=== PATIENT | male | born 1980 ===

== ENCOUNTER 2024-07-10 16:52 | Emergency (ER) | payer SELFPAY ==
--- NOTE | ~2024-07-10 | CT_ITS ---
CLINICAL HISTORY: AMS, intoxication, contusion on forehead CT head without contrast Comparison: None Findings: No intra-axial mass, midline shift, hydrocephalus, or acute hemorrhage. No significant atrophy-like change or white matter disease. There is no sinus or mastoid fluid. The orbits are unremarkable. Left frontal scalp soft tissue edema. There is no acute fracture. IMPRESSION: 1. No acute intracranial findings. This document has been electronically signed by: Naif Olson MD on 07/10/2024 20:04:50
--- NOTE | ~2024-07-10 | CT_ITS ---
CLINICAL HISTORY: intoxicated concern for trauma CT cervical spine without contrast Comparison: None Findings: Motion and streak artifact limit evaluation. Straightening of the cervical lordosis. Mild spinal canal narrowing suspected at C4-C5 with severe left and moderate right bilateral foraminal stenoses. Osteopenia. No acute fracture. Soft tissues of the neck are normal. No consolidation or effusion at the lung apices. IMPRESSION: Motion degraded exam. No acute cervical spine fracture. Additional findings described. This document has been electronically signed by: Naif Olson MD on 07/10/2024 20:03:46
[2024-07-10 17:02] VITALS: BP 128/90; PULSE 92; O2SAT 97
[2024-07-10 17:03] VITALS: BP 132/86; PULSE 88; RESP 18; TEMP 36.6; O2SAT 96; BMI 29.9
--- NOTE | 2024-07-10 17:34 | ED_ITS ---
HPI - Alcohol General Chief Complaint: ETOH/Substance Use Stated Complaint: etoh liquor, stumbling and fallen in grocery Time Seen by Provider: 07/10/24 17:03 Source: patient and EMS Mode of arrival: EMS Limitations: other (intoxicated) History of Present Illness ED Provider: KATJA HPI narrative: 44 yo male with reported ETOH use disorder here after being found stumbling in a store - admits to ETOH use and they found him with 1.5L of wine in backpack. He is from [place]. He really cannot provide much history. He denies trauma but has a contusion on the forehead. He has not been to [place] before. I asked him about detox and he did note he was there recently but no other history given. MD complaint: alcohol intoxication Last drink: Unknown Chronic alcohol use: Yes Previous visits for alcohol intoxication: No Recent trauma: No (denies but exam suggests otherwise) Associated symptoms: denies other symptoms Treatments prior to arrival: none Related Data Allergies Allergy/AdvReac Type Severity Reaction Status Date / Time No Known Allergies Allergy Verified 07/10/24 17:05 Review of Systems 2 Review of Systems: ROS unable to be obtained due to altered mental status [facility] Past Medical History Attestation statement: The following information was validated with the patient. Medical History Alcohol abuse Social History Social History Smoked in Last 30 Days: No Use of substances other than those prescribed or required for medical reasons: No Advance Directives: No Advance Directives Information Provided: No Do you have a plan to hurt others: No Plan Physical Exam ED Vital Signs: Vital Signs - 24 hr 07/10/24 17:03 Temperature 97.9 F Pulse Rate 88 Respiratory Rate 18 Blood Pressure 132/86 Pulse Oximetry 96 Oxygen Delivery Method Room Air BMI result Body Mass Index 29.9 Appearance: Alert. intoxicated and confused. No acute distress. Eyes: Pupils equal, round and reactive to light. he has mild horizontal nystagmus ENT: Pharynx normal. contusion on forehead Neck: Normal inspection. Neck supple. CVS: Normal heart rate and rhythm. Pulses normal. Respiratory: No respiratory distress. Breath sounds normal. Abdomen: Soft and nontender. Skin: Skin warm and dry. Normal skin color. Normal skin turgor. Extremities: No lower extremity edema Neuro: confused. No motor deficit. No sensory deficit. CN2-12 intact Course Course Course Narrative: refusing labs and CT scans - aware they are on phone fighting 627pm Reevaluation(s) Reevaluation #1: on her way to see the patient 701pm Medical Decision Making Medical Decision Making MDM Narrative: 44 yo male with PMH of ETOH abuse here with intoxication and concern for possible fall at this time labs and CT head ordered/cspine and labs. Will need to observe until clinically sober. Differential Diagnosis Differential Diagnoses: The differential diagnosis associated with the presentation includes ETOH intoxication Admission/Observation Consideration of admission/observation: Escalation of care including admission/observation considered here to take him to detox Independent Interpretation I performed an independent interpretation of an: CT Scan (atraumatic) Radiology Impression Discussion of test interpretation with radiology: I have reviewed the radiologist's reading. Independent Historian Clinical information obtained from an independent historian. History obtained from or confirmed by: Spouse and EMS Discharge Plan Discharge Clinical Impression: Alcoholic intoxication Qualifiers: Complication of substance-induced condition: with unspecified complication Qualified Code(s): F10.929 - Alcohol use, unspecified with intoxication, unspecified Patient Disposition: Home, Self-Care Instructions: Alcohol Intoxication (ED), Abuse of Alcohol (ED) Additional Instructions: Alcohol use disorder You were seen in the Emergency Department today for treatment of alcohol use disorder.? You may have been given medications to help with your withdrawal symptoms.? Please do not drink alcohol with them. This is very dangerous and can cause respiratory depression or other adverse reactions depending on the medication. If you would like to cut down or stop your alcohol use please consider calling our outpatient Addiction Treatment office:? [facility] ([id number]) [address] [place] [address] ? You have also been given a list of treatment providers in the area that can assist as well.? If you experience seizures, vomiting blood, black stools, falls, severe headache, chest pain, fevers, trouble breathing, hallucinations or any other concerns you need to call 911 or seek immediate care. Please stay hydrated. HE IS MEDICALLY CLEARED FOR DETOX Print Language: Brazilian
--- NOTE | 2024-07-10 18:15 | MHC.EDTECH ---
pt refused labs x3 from two different tech. Aime granger is aware.
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
--- OUTSIDE RECORDS SUMMARY | 2024-07-10 18:53 | XMS_ITS | Encounter Summary ---
Author Organization [facility] Address [address] [place] [address] Care Team Providers Care Special Agent Name Role Phone Desirae Wells MD Primary Care Provider Unav Ashley Diallo NP Primary Care Provider [phone] Rachel Chandra MD Primary Care Provider Encounter Details Date Type Department Care Team (Late st Contact Info) Description 07/16/2008 Orders Only [facility] [address] [place] [id number] Jackie Alicea, [facility] [address] [place] [address] Social History Tobacco Use Types Packs/Day Years Used Date Smoking Tobacco: Never Alcohol Use Standard Drinks/Week Comments Not Asked 0 (1 standard drink = 0.6 oz pur e alcohol) Sex and Gender Information Value Date Recorded Sex Assigned at Male 08/28/2022 9:04 AM EDT Legal Sex Male 6:16 PM EDT Gender Identity Male 08/28/2022 9:04 AM EDT Sexual Orientation Not on file documented as of this encounter Plan of Treatment Not on file documented as of this encounter Procedures Procedure Name Priority Date/Time Associated Diagnosis Comments INFECTIOUS AGENT AG DETECTION BY IMMUNOASSAY W DIRECT OPTICAL OBSERVATION; STREPTOCOCCUS, GROUP A Routine 07/16/2008 4:02 PM EDT Acute Pharyngitis documented in this encounter Results * STREP THROAT (GROUP A) RAPID DETECTION - STATION (07/16/2008 4:02 PM EDT) STREP GROUP A, RAPID (THROAT) neg Specimen from throat (specimen) 07/16/2008 4:02 PM EDT Alyson Madrid [employer] [facility] Final Result * CULTURE, STREP SCREEN (GROUP A), THROAT (07/16/2008) Result(s) SEE TEXT Comment: SOURCE: THROAT NO GROUP A STREPTOCOCCI ISOLATED 07/16/2008 07/16/2008 9:5 4 PM EDT Alyson Madrid [employer] Final Result documented in this encounter Visit Diagnoses Diagnosis Acute pharyngitis- Primary documented in this encounter Additional Health Concerns Infection Onset Date Last Indicated Resolved Time COVID-19 Rule-Out 01/08/2020 01/08/2020 01/10/2020 5:23 PM EST COVID-19 Rule-Out 04/09/2020 04/09/2020 04/11/2020 11:07 AM EST COVID-19 Rule-Out 08/25/2020 08/25/2020 08/26/2020 11:07 AM EDT COVID-19 Rule-Out 10/25/2020 10/25/2020 10/25/2020 7:44 PM EDT COVID-19 Confirmed 10/27/2020 10/27/2020 8:12 PM EST COVID-19 Confirmed 03/03/2021 03/03/2021 8:12 PM EDT documented as of this encounter Care Teams Special Agent Relationship Specialty Start Date End Date Desirae Wells MD PCP - General 05/26/05 03/12/17 Ashley Kim NP PCP - General Internal Medicine 03/13/17 06/17/24 Rachel Chandra MD [address] [place] [address] PCP - General 06/18/24 documented as of this encounter
--- OUTSIDE RECORDS SUMMARY | 2024-07-10 18:53 | XMS_ITS | Encounter Summary ---
Author Organization [facility] Address [address] [place] [address] Care Team Providers Care It Support Specialist Name Role Phone Desirae Wells MD Primary Care Provider Unav Ashley Diallo NP Primary Care Provider [phone] Rachel Chandra MD Primary Care Provider [phone] Encounter Details Date Type Department Care Team (Late st Contact Info) Description 05/05/2012 Orders Only [facility] [address] [place] [id number] Desirae Wells MD Social History Tobacco Use Types Packs/Day Years Used Date Smoking Tobacco: Never Smokeless Tobacco: Never Alcohol Use Standard Drinks/Week Comments Yes 0 (1 standard drink = 0.6 oz pur e alcohol) Sex and Gender Information Value Date Recorded Sex Assigned at Male 08/28/2022 9:04 AM EDT Legal Sex Male 6:16 PM EDT Gender Identity Male 08/28/2022 9:04 AM EDT Sexual Orientation Not on file documented as of this encounter Plan of Treatment Not on file documented as of this encounter Visit Diagnoses Diagnosis Screening for cardiovascular condition Screening for other and unspecified cardiovascular conditions documented in this encounter Additional Health Concerns Infection Onset Date Last Indicated Resolved Time COVID-19 Rule-Out 01/08/2020 01/08/2020 01/10/2020 5:23 PM EST COVID-19 Rule-Out 04/09/2020 04/09/202004/1104/11/2020 11:07 AM EST COVID-19 Rule-Out 08/25/2020 08/25/2020 08/26/2020 11:07 AM EDT COVID-19 Rule-Out 10/25/2020 10/25/2020 10/25/2020 7:44 PM EDT COVID-19 Confirmed 10/27/2020 10/27/2020 8:12 PM EST COVID-19 Confirmed 03/03/2021 03/03/2021 8:12 PM EDT documented as of this encounter Care Teams It Support Specialist Relationship Specialty Start Date End Date Desirae Wells MD PCP - General 05/26/05 03/12/17 Ashley Kim NP PCP - General Internal Medicine 03/13/17 06/17/24 Rachel Chandra MD [address] [place] [id number] PCP - General 06/18/24 documented as of this encounter
--- OUTSIDE RECORDS SUMMARY | 2024-07-10 18:53 | XMS_ITS | Encounter Summary ---
Author Organization [facility] Address [address] [place] [address] Care Team Providers Care Plaster Form Maker Name Role Phone Desirae Wells MD Primary Care Provider Unav Ashley Diallo NP Primary Care Provider [phone] Rachel Chandra MD Primary Care Provider [phone] Encounter Details Date Type Department Care Team (Late st Contact Info) Description 08/10/2008 Orders Only [facility] [address] [place] [phone] Alyson Madrid NP [facility] Primary Care [address] [place] [id number] Social History Tobacco Use Types Packs/Day Years [...] Procedure Name Priority Date/Time Associated Diagnosis Comments MONOSPOT Routine 08/10/2008 Pharyngitis CBC 5 PART DIFF Routine 08/10/2008 Pharyngitis documented in this encounter Results * CBC 5 PART DIFF (08/10/2008) WHITE BLOOD COUNT 5.1 3.8 - 10.8 THOUS/UL RBC 5.31 4.20 - 5.80 MIL/UL Hemoglobin 15.7 13.2 - 17.1 G/DL HCT (HEMATOCRIT) 47.4 38.5 - 50.0 % MCV 89.2 80.0 - 100.0 FL MCH 29.6 27.0 - 33.0 PG MCHC 33.2 32.0 - 36.0 G/DL BAND % 0 0 - 5 % NEUTROPHIL % 60 48 - 75 % LYMPHOCYTE % 33 17 - 40 % MONOCYTE % 5 0 - 14 % EOSINOPHIL % 1 0 - 5 % BASOPHIL % 1 0 - 3 % ATYPICAL LYMPHOCYTE % 0 0 - 5 % PLATELETS 209 140 - 400 THOUS/UL BANDS # 0 0 - 750 CELLS/MCL NEUTROPHILS # 3060 1500 - 7800 CELLS/MCL LYMPHOCYTES # 1683 850 - 3900 CELLS/MCL MONOCYTES # 255 200 - 950 CELLS/MCL EOSINOPHILS # 51 15 - 550 CELLS/MCL BASOPHILS # 51 0 - 200 CELLS/MCL ATYPICAL LYMPHOCYTES # 0 0 - 200 CELLS/MCL RDW 13.9 11.0 - 15.0 % MPV 9.0 7.5 - 11.5 FL 08/10/2008 08/11/2008 1:1 4 AM EDT Alysonniecy Madrid SURFACING TECHNICIAN LAB SAME DAY RESULT F inal Result * MONOSPOT (08/10/2008) Heterophile Ab NEGATIVE SEE BELOW [facility] Comment: REFERENCE: NEGATIVE: HETEROPHILE IF POSITIVE INDICATES CURRENT, PRIMARY INFECTION. 08/10/2008 08/11/2008 1: 14 AM EDT Alysonniecy Madrid SURFACING TECHNICIAN LAB SAME DAY RESULT F inal Result [facility] [address] [place] [address] documented in this encounter Visit Diagnoses Diagnosis Pharyngitis Acute pharyngitis documented in this encounter Additional Health Concerns [...] documented as of this encounter Care Teams Plaster Form Maker Relationship Specialty Start Date End Date Desirae Wells MD PCP - General 05/26/05 03/12/17 Ashley Kim NP PCP - General Internal Medicine 03/13/17 06/17/24 Rachel Chandra MD [address] [place] [id number] PCP - General 06/18/24 documented as of this encounter
--- OUTSIDE RECORDS SUMMARY | 2024-07-10 18:53 | XMS_ITS | Clinical Summary ---
Author Organization [facility] Address [address] [place] [phone] Phone Care Team Providers Care Booth Cashier Name Role Phone Pcp, None MD Primary Care Provider Unavailabl e Allergies Active Allergy Reactions Criticality Noted Date Comments Diphenhydramine Other (See Comments) 07/09/2024 Pt reports sensitivity, pt reports having Hydralazine Other (See Comments) 07/09/2024 Medications No known medications Encounters Date Type Department Care Team Description 07/09/2024 1:30 PM EDT - 07/09/2024 6:15 PM EDT Emergency [facility] [address] [place] [address] Mick Brantley Jr., Daniele Andrew RN Alcohol use disorder, severe, dependence (Primary Dx); Alcohol intoxication Discharge Disposition: Another Health Care Institution Not Defined 07/02/2024 6:49 PM EDT - 07/03/2024 11:42 AM EDT Emergency [facility] [address] [place] [phone] Justo Cranes MD Rice, Phillip L Jr., [facility] Scribe Lessard, Eileen A, CM Clary, Sulma, RN Landry, Cathleen, RN Mullaley, Patricia, RN Rudio, Csianne Sariel, RN Alcohol abuse (Primary Dx); Anxiety Discharge Disposition: Home or Self Care from Last 3 Months Social History Tobacco Use Types Packs/Day Years Used Date Smoking Tobacco: Never Assessed Sex and Gender Information Value Date Recorded Sex Assigned at Not on file Gender Identity Not on file Sexual Orientation Not on file Last Filed Vital Signs Vital Sign Reading Time Taken Comments Blood Pressure 147/99 07/09/2024 1:46 PM EDT Pulse 105 07/03/2024 9:19 AM EDT Temperature 36.1 ??C (97 ??F) 07/02/2024 6:22 PM EDT Respiratory Rate 18 07/09/2024 1:46 PM EDT Oxygen Saturation 96% 07/09/2024 1:46 PM EDT Inhaled Oxygen Concentration - - Weight 90.7 kg (200 lb) 07/09/2024 1:46 PM EDT Height 180.3 cm (5' 11 ) 07/09/2024 1:46 PM EDT Body Mass Index 27.89 07/09/2024 1:46 PM EDT Plan of Treatment Not on file Procedures Procedure Name Priority Date/Time Associated Diagnosis Comments URINE DRUG SCREEN STAT 07/09/2024 2:0 9 PM EDT ETHANOL STAT 07/09/2024 2:09 PM EDT BASIC METABOLIC PANEL STAT 07/09/2024 2:09 PM EDT CBC W/ AUTO DIFF STAT 07/09/2024 2:09 PM EDT ACETAMINOPHEN LEVEL STAT 07/02/2024 6 :40 PM EDT SALICYLATE LEVEL STAT 07/02/2024 6:40 PM EDT ETHANOL STAT 07/02/2024 6:40 PM EDT BASIC METABOLIC PANEL STAT 07/02/2024 6:40 PM EDT CBC W/ AUTO DIFF STAT 07/02/2024 6:40 PM EDT URINALYSIS, MICROSCOPIC ONLY STAT 07/02/2024 6:38 PM EDT URINALYSIS, ROUTINE STAT 07/02/2024 6 :38 PM EDT URINE DRUG SCREEN STAT 07/02/2024 6:3 8 PM EDT from Last 3 Months Results * (ABNORMAL) Urine Drug Screen (07/09/2024 2:09 PM EDT) Only the most recent of2 resultswithin the time period is included. Amphetamine Negative Negative 07/09/2024 2:36 PM EDT [facility] Benzodiazepine Positive(A) Negative 2:36 PM EDT [facility] Opiate Negative Negative 07/09/2024 2:36 PM EDT [facility] Cocaine Negative Negative 07/09/2024 2:36 PM EDT [facility] Barbiturate Negative Negative 07/09/2024 2:36 PM EDT [facility] Cannabinoid Negative Negative 07/09/2024 2:36 PM EDT [facility] METHADONE Negative Negative 07/09/2024 2:36 PM EDT [facility] Fentanyl Screen, Urine Negative Negative 07/09/2024 2:36 PM EDT [facility] Urine Urine specimen obtained by clean catch procedure / Unknown 07/09/2024 2:09 PM EDT 07/09/2024 2:09 PM EDT Narrative [facility] - 07/09/2024 2:36 PM EDT DRUG SCREEN DISCLAIMER Results are only for medical purposes (i.e. treatment). Results must not be used for nonmedical purposes (i.e. employment testing, legal testing). Effective 12/27/2015: Ecstasy detection will no longer be included within this panel. If clinically indicated, please order separately as a sendout test. Mick Brantley Jr., YASMIN URINE ORDERA BLES [facility] [address] [place] [phone] * (ABNORMAL) CBC w/ Differential (07/09/2024 2:09 PM EDT) Only the most recent of2 resultswithin the time period is included. WBC 3.71 3.50 - 10.50 10*3/uL 07/09/2024 2:15 PM EDT [facility] RBC 5.00 4.32 - 5.72 10*6/uL 07/09/2024 2:15 PM EDT [facility] Hemoglobin 15.1 13.5 - 17.5 g/dL 07/09/2024 2:15 PM [facility] Hematocrit 43.8 38.8 - 50.0 % 07/09/2024 2:15 PM [facility] MCV 87.6 81.2 - 95.1 fL 07/09/2024 2:15 PM [facility] MCH 30.2 27.5 - 33.2 pg 07/09/2024 2:15 PM [facility] MCHC 34.5 33.4 - 35.5 g/dL 07/09/2024 2:15 PM [facility] RDW 15.2 11.8 - 15.6 % 07/09/2024 2:15 PM [facility] Platelets 126(L) 150 - 450 10*3/uL 07/09/2024 2:15 PM [facility] MPV 8.9 7.4 - 11.0 fL 07/09/2024 2:15 PM [facility] NRBC 0.0 0.0 - 1.0 /100 WBCs 07/09/2024 2:15 PM [facility] Neutrophils (Relative) 52.6 % 07/09/2024 2:15 PM [facility] Lymphocytes (Relative) 40.4 % 07/09/2024 2:15 PM [facility] Monocytes (Relative) 4.6 % 07/09/2024 2:15 PM [facility] Eosinophils (Relative) 0.8 % 07/09/2024 2:15 PM [facility] Basophils (Relative) 1.3 % 07/09/2024 2:15 PM [facility] Immature Granulocytes (Relative) 0.3 % 07/09/2024 2:15 PM [facility] Neutrophils (Absolute) 2.0 1.7 - 7.0 10*3/uL 07/09/2024 2:15 PM [facility] Lymphocytes (Absolute) 1.5 0.9 - 2.9 10*3/uL 07/09/2024 2:15 PM [facility] Monocytes (Absolute) 0.2(L) 0.3 - 0.9 10*3/uL 07/09/2024 2:15 PM EDT [facility] Eosinophils (Absolute) 0.0 0.0 - 0.5 10*3/uL 07/09/2024 2:15 PM EDT [facility] Basophils (Absolute) 0.1 0.0 - 0.2 10*3/uL 07/09/2024 2:15 PM EDT [facility] Immature Granulocytes (Absolute) 0.0 10*3/uL 07/09/2024 2:15 PM EDT [facility] Blood 07/09/2024 2:09 PM EDT 07/09/2024 2:09 PM EDT Mick Brantley Jr., PRIZE JACKER LAB BLOOD OR DERABLES Performing Organization Address [facility] de Phone Number [facility] [address] [place] [address] * (ABNORMAL) Ethanol (07/09/2024 2:09 PM EDT) Only the most recent of2 resultswithin the time period is included. Ethanol Level 374.2(H) <10.0 mg/dL 07/09/2024 2:50 PM EDT [facility] Blood 07/09/2024 2:09 PM EDT 07/09/2024 2:09 PM EDT Mick Brantley Jr., PRIZE JACKER LAB BLOOD OR DERABLES Performing Organization Address [facility] de Phone Number [facility] [address] [place] [address] * (ABNORMAL) BMP (07/09/2024 2:09 PM EDT) Only the most recent of2 resultswithin the time period is included. Sodium 136 136 - 145 mmol/L 07/09/2024 2:50 PM EDT [facility] Potassium 3.8 3.5 - 5.3 mmol/L 07/09/2024 2:50 PM EDT [facility] Chloride 97(L) 98 - 110 mmol/L 07/09/2024 2:50 PM EDT [facility] CO2 26.0 20.0 - 31.0 mmol/L 07/09/2024 2:50 PM EDT [facility] BUN 8.0 6.0 - 24.0 mg/dL 07/09/2024 2:50 PM EDT [facility] Creatinine 0.89 0.60 - 1.20 mg/dL 07/09/2024 2:50 PM EDT [facility] Calcium 7.9(L) 8.6 - 10.4 mg/dL 07/09/2024 2:50 PM EDT [facility] Glomerular Filtration Rate >90.0 >90.0 mL/min/1.7 3m*2 07/09/2024 2:50 PM EDT [facility] Anion Gap 13.0 6 - 19 mmol/L 07/09/2024 2:50 PM EDT [facility] Glucose 116 70 - 140 mg/dL 07/09/2024 2:50 PM EDT [facility] Blood 07/09/2024 2:0 9 PM EDT 07/09/2024 2:09 PM EDT [facility] - 07/09/2024 2:50 PM EDT Thresholds for diagnosing kidney disease are based on the results of the predicted GFR. The MDRD equation is more accurate as a means to estimate GFR and is a better predictor of Chronic Kidney Disease (CKD) than the traditional creatinine clearance in a 24 hour urine specimen. Classifications of Chronic Kidney Disease GFR Stage Description >=90 1 Kidney damage w/normal or elevated GFR 60-89 2 Kidney damage w/mild or decreased GFR 30-59 3 Moderately decreased GFR 15-29 4 Severely decreased GFR <15 5 Kidney failure Mick Brantley Jr., NP LAB BLOOD OR DERABLES [facility] [address] [place] [phone] * Acetaminophen level (07/02/2024 6:40 PM EDT) Acetaminophen Level <2.0 0.0 - 20.0 ug/ml 07/02/2024 7:23 PM EDT [facility] Blood Venipuncture / Unknown 07/02/2024 6:40 PM EDT 07/02/2024 6:41 PM EDT Narrative [facility] - 07/02/2024 7:23 PM EDT Acetaminophen Comment: Low false positive acetaminophen results may be observed when testing samples from hyperbilirubinemic patients who have no known recent history of acetaminophen exposure. Low acetaminophen concentration positive values may be observed when serum bilirubin concentrations are above 1O mg/dL. Shivam Leiva MD LAB BLOOD ORDERABLES Performing Organization Address [facility] Co de Phone Number [facility] [address] [place] [phone] * Salicylate level (07/02/2024 6:40 PM EDT) Salicylate <3.0 0.0 - 30.0 mg/dL 07/02/2024 7:23 PM EDT [facility] Blood Venipuncture / Unknown 07/02/2024 6:40 PM EDT 07/02/2024 6:41 PM EDT Shivam Leiva MD LAB BLOOD ORDERABLES Performing Organization Address [facility] de Phone Number [facility] [address] [place] [phone] * (ABNORMAL) URINALYSIS, MICROSCOPIC ONLY (07/02/2024 6:38 PM EDT) RBC, UA 0-2 Rare None Seen, 0-2 Rare /HPF 07/02/2024 7:32 PM EDT [facility] WBC, UA 0-5 Rare None Seen, 0-5 Rare /HPF 07/02/2024 7:32 PM EDT [facility] Bacteria, UA 1-9 Few(A) None Seen /HPF 07/02/2024 7:32 PM EDT [facility] Squamous Epithelial Cells, UA 0 to 3 Few None Seen, 0-3 Few /LPF 07/02/2024 7:32 PM EDT [facility] Casts, UA Coarse Granular Casts(A) None Seen /LPF 07/02/2024 7:32 PM EDT [facility] Crystals, UA None Seen None Seen /HPF 07/02/2024 7:32 PM EDT [facility] Urine Urine specimen obtained by clean catch procedure / Unknown Collection / Unknown 07/02/2024 6:38 PM EDT 07/02/2024 6:44 PM EDT Shivam Leiva MD URINE ORDERABLES Performing Organization Address [facility]/ZIP Co de Phone Number [facility] [address] [place] [address] * (ABNORMAL) Urinalysis W/Rflx Micro and Cult, if indicated (07/02/2024 6:38 PM EDT) Color, UA Yellow Colorless, Light Yellow, Yellow, Straw, Pale Yellow 07/02/2024 6:53 PM EDT [facility] Clarity, UA Clear Clear 07/02/2024 6:53 PM EDT [facility] Specific [place], UA 1.010 1.005 - 1.030 07/02/2024 6:53 PM EDT [facility] pH, UA 5.5 5.0 - 8.0 07/02/2024 6:53 PM EDT [facility] Leukocyte esterase, UA Negative Negative 07/02/2024 6:53 PM EDT [facility] Nitrite, UA Negative Negative 07/02/2024 6:53 PM EDT [facility] Protein, UA 2+(A) Negative 07/02/2024 6:53 PM EDT [facility] Glucose, UA Negative Negative 07/02/2024 6:53 PM EDT [facility] Urobilinogen, UA <2.0 <2.0, Normal EU/dL E.U./dL 07/02/2024 6:53 PM EDT [facility] Bilirubin, UA Negative Negative, Trace 07/02/2024 6:53 PM EDT [facility] Blood, UA Trace(A) Negative 07/02/2024 6:53 PM EDT [facility] Ketones, UA Negative Negative 07/02/2024 6:53 PM EDT [facility] Urine Urine specimen obtained by clean catch procedure / Unknown Collection / Unknown 07/02/2024 6:38 PM EDT 07/02/2024 6:44 PM EDT Shivam Leiva MD URINE ORDERABLES Performing Organization Address [facility]/ZIP Co de Phone Number [facility] [address] [place] [address] from Last 3 Months Care Teams Booth Cashier Relationship Specialty Start Date End Date Pcp, None, PCP - General Internal Medicine 07/02/24
--- OUTSIDE RECORDS SUMMARY | 2024-07-10 18:53 | XMS_ITS | Encounter Summary ---
Author Organization [facility] Address [address] [place] [address] Care Team Providers Care Software Quality Assurance Specialist Name Role Phone Ashley Kim NP Primary Care Provider [phone] Rachel Chandra MD Primary Care Provider [phone] Reason for Visit * Reason Comments E-prescribing Refill Request Encounter Details Date Type Department Care Team (Late st Contact Info) Description 03/22/2017 Refill [facility] [address] [place] [id number] Desirae Wells MD E-prescribing Refill Request Social History Tobacco Use Types Packs/Day Years Used Date Smoking Tobacco: Never Smokeless Tobacco: Never Alcohol Use Standard Drinks/Week Comments Yes 0 (1 standard drink = 0.6 oz pure alcohol) more in summer, less during school/work year. during summer--21, 15 during work year. Sex and Gender Information Value Date Recorded Sex Assigned at Male 08/28/2022 9:04 AM EDT Legal Sex Male 6:16 PM EDT Gender Identity Male 08/28/2022 9:04 AM EDT Sexual Orientation Not on file documented as of this encounter Miscellaneous Notes * Telephone Encounter - Ashley Kim NP - 03/22/2017 9:53 PM EST Please find out if he is taking alprazolam or clonazepam. Both will not be prescribed. No refills-1tablet at bedtime, 30 tabs. Need to discuss at his visit. * Telephone Encounter - Jackie Alicea MA - 03/22/2017 3:22 PM EST Any special requests or concerns? Former Dr. Wells pt and routing to new provider Faxed/E-prescribed medication renewal request(s) for Isaiah Torrez 36 y.o. male received from pharmacy. Verified and Confirmed pharmacy for patient. Last CPE with this specialty: 09/26/2015 Last OV with this specialty: 03/13/2017 Next OV: Future Appointments Date Time Provider Department Phone 03/27/17 2:45 PM Lzi Leal MD [facility] Neurology [address] 04/09/17 4:00 PM Ashley Kim NP [facility] Internal Medicine [phone] Pertinent lab results: No labs suggested for any medication orders signed or pended in this encounter. Refresh if any orders changed. Allergies: Review of patient's allergies indicates no known allergies. BP Readings from Last 1 Encounters: 03/13/17 119/76 Patient Active Problem List Diagnosis Date Noted ??? Elevated blood pressure (not hypertension) 09/26/2015 ??? Hyperlipidemia 06/17/2013 ??? Gambling problem 02/20/2013 ??? Gastroesophageal reflux disease 02/19/2013 ??? Vertigo 03/20/2012 ??? Sleep apnea 12/03/2011 ??? BMI 30.0-30.9,adult 05/15/2011 ??? Alcohol abuse, episodic 07/21/2010 ??? Allergic rhinitis 02/28/2010 , ??? Hypertension 07/19/2009 Episodic, on no meds ??? Factor V Leiden, prothrombin gene mutation (HCC) 09/20/2008 1 copy ??? PPD+ 09/20/2008 Took INH for 9 months : mostly compliant ??? Panic disorder ??? Family history of premature coronary heart disease ??? Asthma 05/07/2006 01/15/2003 Francesca WELLS M.D. , ??? Depressive disorder 04/02/2003 04/02/2003 Francesca WELLS M.D. Current Outpatient Prescriptions on File Prior to Visit Medication Sig Dispense Refill ??? Lisinopril 10 MG Tab Take one by mouth daily 90 Tab 3 ??? ALPRAZolam 0.5 MG Tab TAKE 1 TO 2 TABLETS BY MOUTH TWICE A DAY 60 Tab 3 ??? ClonazePAM 0.5 MG Tab 1-2 by mouth at bedtime (do not mix with alprazolam) 60 Tab 5 ??? Meclizine HCl 12.5 MG Tab 1 by mouth three times a day as needed for dizziness 90 Tab 0 ??? RaNITidine HCl 75 MG Tab 1 TABLET 1 TO 2 TIMES A DAY NEEDED ??? ALBUTEROL SULFATE (PROAIR HFA) 108 (90 BASE) MCG/ACT Aero Soln inhale 2 puffs by mouth every 4 hours if needed FOR SHORTNESS OF BREATH/WHEEZE 17 g 5 ??? [place]-3 Fatty Acids (FISH OIL) 1000 MG Cap 2 CAPSULES DAILY WITH A MEAL ??? BQZ-LML-Diqmchpf P19-Vfkhjec E (CO Q-10 VITAMIN E FISH OIL) [id number] Cap 1 CAPSULES DAILY ??? B Complex Vitamins (VITAMIN-B COMPLEX) Tab 1 tablet daily ??? Cholecalciferol (VITAMIN D) 1000 UNITS Tab 1 TABLET DAILY ??? Lactobacillus (ACIDOPHILUS) Tab 2 TABLETS DAILY documented in this encounter Plan of Treatment Not on file documented as of this encounter Goals Goal Patient Goal Type Associated Problems Recent Progress Patient-Stated? Author Blood Pressure < 140/90 Blood Pressure 129/87(2021 10:51 AM EDT) No Anusha Boucher documented as of this encounter Visit Diagnoses Not on filedocumented in this encounter Additional Health Concerns Infection Onset Date Last Indicated Resolved Time COVID-19 Rule-Out 01/08/2020 01/08/2020 01/10/2020 5:23 PM EST COVID-19 Rule-Out 04/09/2020 04/09/2020 04/11/2020 11:07 AM EST COVID-19 Rule-Out 08/25/2020 08/25/2020 08/26/2020 11:07 AM EDT COVID-19 Rule-Out 10/25/2020 10/25/2020 10/25/2020 7:44 PM EDT COVID-19 Confirmed 10/27/2020 10/27/2020 1 8:12 PM EST COVID-19 Confirmed 03/03/2021 03/03/2021 2 8:12 PM EDT documented as of this encounter Care Teams Software Quality Assurance Specialist Relationship Specialty Start Date End Date Ashley Kim NP PCP - General Internal Medicine 03/13/17 06/17/24 Rachel Chandra MD [address] [place] [id number] PCP - General 06/18/24 documented as of this encounter
--- OUTSIDE RECORDS SUMMARY | 2024-07-10 18:53 | XMS_ITS | Clinical Summary ---
Author Organization [facility] Address [address] [place] [address] Care Team Providers Care Rural Carrier Associate Name Role Phone Rachel Chandra MD Primary Care Provider [phone] Allergies No known active allergies Medications * This document contains information received from the source organization and may not represent a complete record from that organization. ALBUTEROL SULFATE (ProAir HFA) 108 (90 Base) MCG/ACT inhaler inhale 2 puffs by mouth every 4 hours if needed FOR SHORTNESS OF BREATH/WHEEZE 17 g 1 0 Active Meclizine HCl (ANTIVERT) 12.5 MG tablet 1 by mouth three times a day as needed for dizziness. 90 tablet 4 Active clonazePAM (KlonoPIN) 0.5 MG tabletIndicatio ns:Anxiety,Jessica c disorder Take one tablet (0.5 mg total) by mouth 2 (two) times a day if needed for anxiety ; avoid any driving, operating machinery, and alcohol when taking this medication. 60 tablet 4 Active Active Problems Problem Noted Date Diagnosed Date Immunocompromised due to alcohol dependence 07/02 Overview (07/13/2021): Patient considered immunosuppressed due to the diagnosis of alcohol dependence. Major depressive disorder, r ecurrent episode, in partial remission 07/22/2019 Overview (07/22/2019): 06/25/19 PCP Chronic Assessment review: Major Depression Status: Stable based on review of symptoms. Continue present treatment plan and recheck at least yearly. Recurrent Mild Sx partially controlled Mood disorder 07/06/2019 Alcohol use disorder, severe, dependence 020 Visual disturbance 04/22/2017 Lightheadedness 03/27/2017 Dizziness 03/27/2017 Hyperlipidemia 06/17/2013 Gambling problem 02/20/2013 Gastroesophageal reflux disease 02/19/2013 Overview (07/05/2020): Vertigo 03/20/2012 Sleep apnea 12/03/2011 BMI 30.0-30.9,adult 05/15/2011 Overview (04/16/2014): Alcohol abuse, episodic 07/21/2010 Allergic rhinitis 02/28/2010 Overview (12/05/2015): , Hypertension 07/19/2009 Overview (07/09/2014): Episodic, on no meds Factor V Leiden, prothrombin gene mutation (HHS) 09/20/2008 Overview (09/20/2008): 1 copy PPD+ 09/20/2008 Overview (09/20/2008): Took INH for 9 months : mostly compliant Asthma 05/07/2006 Overview (02/19/2016): 01/15/2003 Francesca WELLS M.D. , Panic disorder Family history of premature coronary heart disea se Resolved Problems Problem Noted Date Diagnosed Date Resolved Date Dizziness-PT 05/09/2020 08/28/2022 Elevated blood pressure (not hypertension) 09/26/2015 04/29/2017 Overview (02/19/2016): HTN (hypertension) 07/21/2010 2 Overview (07/09/2014): Allergy 01/07/2004 09/26/2015 Overview (03/09/2018): 01/07/2004 Mirtha BECKFORD M.D.,ADAN Current drinker of alcohol 1 04/23/2012 Overview (07/23/2013): . Encounters Date Type Department Care Team Description 04/15/2024 [facility] [address], [place] [id number] [place] [address], Unknown Provider 04/15/2024 Telephone [facility] [address] [place] [address] Ana Sen [place] Care Coordination Communication 04/14/2024 [facility] [address], [place] [id number] [place] [address], Unknown Provider from Last 3 Months Immunizations Name Administration Dates Next Due DTP 09/27/1986 Hep A (adult) 08/10/1999 Hep B (pedi) 08/06/1997,03/10/1997,02/05/1997 Influenza,seasonal,trivalent ,preservative (FLUZONE MDV) 02/16/2005,12/31/2003 MMR 10/11/1992 OPV 09/27/1986 PPV23 (Pneumovax) 02/16/2005 Tdap 12/30/2015 Family History Medical History Relation Name Comments Lipid/Cholesterol Abnormality Father reflux, Heart Disorder Maternal grandfather [place] at 70 Other Maternal grandmother panic a ttacks Thyroid Disorder Mother panic attac ks Psych/Mental Health Paternal aunt panic a ttacks-anxiety Heart Disorder Paternal grandfather [place] at 49 Other Paternal grandmother Gr Gm, ?htn? chol Heart Disorder Paternal uncle 1 [place] at 42 Psych/Mental Health Paternal uncle 2 jessica c attacks-anxiety Relation Name Status Comments Father Alive Maternal grandfather Alive Maternal grandmother Alive Mother Alive Paternal aunt Paternal grandfather Paternal grandmother Paternal uncle 1 Paternal uncle 2 Son Silvio Alive Social History Tobacco Use Types Packs/Day Years Used Date Smoking Tobacco: Never Smokeless Tobacco: Never Tobacco Cessation:Counseling Given: Not Answered Alcohol Use Standard Drinks/Week Comments Yes 0 (1 standard drink = 0.6 oz pur e alcohol) 4 drink per day PHQ-2 Answer Date Recorded PHQ-2 Score 0 10/17/2021 Intimate Partner Violence Answer Date R ecorded Fear of Current or Ex-Partner Not on file Emotionally Abused Not on file 10/21/2022 Physically Abused Not on file 10/21/2022 Sexually Abused Not on file 10/21/2022 Feel Safe at Home Not on file 10/21/2022 Sex and Gender Information Value Date Recorded Sex Assigned at Male 08/28/2022 9:04 AM EDT Legal Sex Male 6:16 PM EDT Gender Identity Male 08/28/2022 9:04 AM EDT Sexual Orientation Not on file 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 file Not on file Not on file Last Filed Vital Signs Vital Sign Reading Time Taken Comments Blood Pressure 129/87 10/17/2021 10:51 AM EDT Pulse 71 10/17/2021 10:51 AM EDT Temperature 36.5 ??C (97.7 ??F) 10/25/2020 6:02 PM ED T Respiratory Rate 18 04/09/2020 11:14 AM EST Oxygen Saturation 98% 10/25/2020 6:02 PM EDT Inhaled Oxygen Concentration - - Weight 88.5 kg (195 lb) 10/17/2021 10:51 AM EDT Height 181 cm (5' 11.26 ) 10/17/2021 10:51 AM ED T Body Mass Index 27 10/17/2021 10:51 AM EDT Plan of Treatment Health Maintenance Due Date Last Done Comments Hep A (2 of 2 - 2-dose series) 02/09/2000 08/10/1999 Pneumococcal (2 of 2 - PCV) 02/16/2006 02/16/2005 COVID-19 Vaccine ( - season) 2023 Influenza (#1) 2023 02/16/2005, 12/31/2003 DTaP/Tdap/Td (3 - Td or Tdap) 12/29/2025 12/30/2015, 09/27/1986 Zoster (Shingrix) (1 of 2) 05/25/2031 Hep B Completed 08/06/1997, 09/1997, 02/05/1997 PSA Discontinued 09/13/2005 Colonoscopy Discontinued 06/23/2013 Tonometry Discontinued 03/22/2017, 03/04, 01/07/2017, Additional history exists Eye/Retina Exam Discontinued 03/23/2017 (Prev iously completed), 03/22/2017, 03/22/2017, Additional history exists Physical Discontinued 04/29/2017, 09/02, 02/19/2013, Additional history exists EKG Discontinued 09/19/2017, 10/02, 10/01/2016, Additional history exists Hepatitis C Screening Completed 05/22/2018 , 03/20/2012, 08/10/2008, Additional history exists LDL Cholesterol Discontinued 05/22/2018, 09/01, 06/30/2016, Additional history exists Chest Imaging Discontinued 01/08/2020, 02/01, 08/16/2007, Additional history exists HPV Vaccine Aged Out No longer eligi ble based on patient's age to complete this topic Hib Aged Out No longer eligi ble based on patient's age to complete this topic Meningococcal ACWY Aged Out No longer eligible based on patient's age to complete this topic Goals Goal Patient Goal Type Associated Problems Recent Progress Patient-Stated? Author Blood Pressure < 140/90 Blood Pressure 129/87(2021 10:51 AM EDT) No Sander, Anusha Procedures Procedure Name Priority Date/Time Associated Diagnosis Comments RAPID COVID-19 FOR SURVEILLANCE - [facility] ONLY Routine 04/14/2024 4:54 PM EST XRAY CHEST, 2 VIEWS, PA & LATERAL (DX: COUGH R05.9/ 786.2) FC STAT (All results called to provider) 01/08/2020 11:03 AM EST Cough HEPATITIS PANEL, ACUTE W/REFLEX Routine 05/22/2018 10:55 AM EDT Alcohol abuse Elevated LFTs LIPID PANEL WITH REFLEX TO DIRECT LDL Routine 05/22/2018 10:55 AM EDT Mixed hyperlipidemia EKG-TO BE READ & BILLED BY ADULT OR PEDIATRIC CARDIOLOGY Routine 09/19/2017 9:25 AM EDT Palpitations COMPREHENSIVE EYE EXAM 03/22/2017 COLONOSCOPY, FLEXIBLE; DIAGNOSTIC +/- COLLECTION OF SPECIMEN(S) BY BRUSHING OR WASHING Routine 06/23/2013 7:27 AM EDT CN (constipation) Dysphagia, unspecified(787.20) PSA (PROSTATE SPECIFIC AG) TOTAL DIAGNOSTIC OR FOLLOW-UP Routine 09/13/2005 Screening Examination For Infectious Disease from Last 3 Months or Most Recently Relevant to Health Maintenance Results * RAPID COVID-19 FOR SURVEILLANCE - [facility] ONLY (04/14/2024 4:54 PM EST) SARS-COV-2 RNA Not Detected Not Detected [facility] Comment: A Not Detected (Negative) test result is indicative of the absence of SARS-CoV-2 RNA at the level of LoD (Limit of Detection). A negative result does not rule out the possibility of COVID-19 and should not be used as the sole basis for treatment or patient management decisions. If COVID-19 is still suspected, based on exposure history together with other clinical findings, re-testing should be considered. 04/14/2024 4:54 PM EST Narrative [facility] - 04/14/2024 6:15 PM EST This test was developed, validated and its performance characteristics determined by [facility]. This test has not been cleared or approved by the U.S. Food and Drug Administration (FDA). FDA Policy for Diagnostic Tests for Coronavirus Disease-2019 during the Public Health Emergency issued May 18, 2019, is followed. us Unknown Provider [facility] LABORATORY Final Resu lt [facility] [employer] [address] [place] [address] * XRAY CHEST, 2 VIEWS, PA & LATERAL (DX: COUGH R05/ 786.2) FC (01/08/2020 11:03 AM EST) Anatomical Region Laterality Modality CHEST Computed Radiogr aphy 01/08/2020 11:2 3 AM EST Narrative 01/08/2020 11:23 AM EST EXAM: ??CHEST, PA AND LATERAL Comparison: CR ??- XRAY CHEST 2 VIEWS PA ?? - 02/14/2018 11:48 AM EST FINDINGS: Frontal and lateral views of the chest show no evidence of air space consolidation. There is no pneumothorax, pleural effusion, or congestive changes. The cardiovascular silhouette is normal. The visualized soft tissue and osseous structures are unremarkable. IMPRESSION: No acute cardiopulmonary abnormality is identified. Procedure Note Amanda Lima MD - 01/08/2020 EXAM: CHEST, PA AND LATERAL Comparison: CR - XRAY CHEST 2 VIEWS PA - 02/14/2018 11:48 AM EST FINDINGS: Frontal and lateral views of the chest show no evidence of air space consolidation. There is no pneumothorax, pleural effusion, or congestive changes. The cardiovascular silhouette is normal. The visualized softtissue and osseous structures are unremarkable. IMPRESSION: No acute cardiopulmonary abnormality is identified. Tanesha Tucker BARBER APPRENTICE IMG XRAY NO CONTRAST ORDERAB LES Final Result * HEPATITIS PANEL, ACUTE W/REFLEX (05/22/2018 10:55 AM EDT) Hepatitis A virus Ab.IgM NON-REACT MATILDE NON-REACT MATILDE [facility] Hepatitis B virus surface Ag NON-REACT MATILDE NON-REACT MATILDE [facility] Hepatitis B virus core Ab.IgM NON-REACT MATILDE NON-REACT MATILDE [facility] Hepatitis C virus Ab NON-REACT MATILDE NON-REACT MATILDE [facility] Hepatitis C virus Ab Signal/Cutoff 0.02 <1.00 [facility] Comment: HCV antibody was non-reactive. There is no laboratory evidence of HCV infection. In most cases, no further action is required. However, if recent HCV exposure is suspected, a test for HCV RNA (test code 32634) is suggested. For additional information please refer to http://education.[employer]/faq/NAH77c0 (This link is being provided for informational/ educational purposes only.) 05/22/2018 10:5 5 AM EDT 05/22/2018 5:08 PM EDT Narrative Resulting Agency Comment [id number] Ashley Kim BARBER APPRENTICE LABORATORY Final Result Performing Organization Address [facility] Co de Phone Number [facility] [address] [place] [address] * (ABNORMAL) LIPID PANEL WITH REFLEX TO DIRECT LDL (05/22/2018 10:55 AM EDT) Cholesterol 162 <200 mg/dL [facility] HDL Cholesterol 45 >40 mg/dL [facility] Triglyceride 59 <150 mg/dL [facility] LDL Cholesterol 103(H) mg/dL (calc) [facility] Comment: Reference range: <100 Desirable range <100 mg/dL for primary prevention; ?? <70 mg/dL for patients with CHD or diabetic patients with > or = 2 CHD risk factors. LDL-C is now calculated using the Sagar calculation, which is a validated novel method providing better accuracy than the Friedewald equation in the estimation of LDL-C. Bryce DONATO et al. JULIENNE. 2013;310(19): 3071-8776 (http://education.[employer]/faq/DVR254) CHOL/HDL Ratio 3.6 <5.0 (calc) [facility] Cholesterol Non-HDL 117 <130 mg/dL (calc) [facility] Comment: For patients with diabetes plus 1 major ASCVD risk factor, treating to a non-HDL-C goal of <100 mg/dL (LDL-C of <70 mg/dL) is considered a therapeutic option. 05/22/2018 10:5 5 AM EDT 05/22/2018 5:08 PM EDT Narrative Resulting Agency Comment [id number] Ashley Kim NP LABORATORY Final Result Performing Organization Address [facility] Co de Phone Number [facility] [address] [place] [address] * EKG-TO BE READ AND BILLED BY CARDIOLOGY (09/19/2017 9:25 AM EDT) VENTRICULAR RATE 54 BPM MUS E EKG SYSTEM ATRIAL RATE 54 BPM MUSE EKG SYSTEM P-R INTERVAL 160 ms MUSE EK G SYSTEM QRS DURATION 82 ms MUSE EK G SYSTEM QT 408 ms MUSE EKG SYSTEM QTC 386 ms MUSE EKG SYSTEM P AXIS -22 degrees MUSE EKG SYSTEM R AXIS 51 degrees MUSE EKG SYSTEM T AXIS 25 degrees MUSE EKG SYSTEM EKG INTERPRETATION Sinus bradycardia Otherwise normal ECG When compared with ECG of 01-OCT-2016 12:49, No significant change was found Confirmed by CHANTEL HARTMAN ([id number]) on 09/19/2017 8:26:14 PM MUSE EKG SYSTEM 09/19/2017 9:25 AM EDT 09/19/2017 8:26 PM EDT us Ashley Kim BARBER APPRENTICE CARDIOVASCULAR-WITH INBSKT RTG Final Result MUSE EKG SYSTEM * COMPREHENSIVE EYE EXAM (03/22/2017) us Ana Hodge MD MINOR PROCEDURE Final Result * PSA, TOTAL (09/13/2005) PSA 0.5 0 - 4.0 NG/ML [facility] (CLIA# [id number]) Comment:PSA PERFORMED BY [facility] ASS[facility]. 09/13/2005 09/13/2005 7:2 7 PM EDT [facility] Shirlene Wells MD LABORATORY Final Resul t Performing Organization Address City/[facility] Co de Phone Number [facility] (CLIA# [id number]) [address] [place] [address] from Last 3 Months or Most Recently Relevant to Health Maintenance Insurance [employer] PPO WORKERS COMPENSATION * Guarantor: [facility] Account Type Relation to Patient Date of Phone Billing Address Occupational Health Susie Employer [address] [place] [id number] Care Teams Rural Carrier Associate Relationship Specialty Start Date End Date Rachel Chandra MD [address] [place] [id number] [facility] - General 06/18/24
--- OUTSIDE RECORDS SUMMARY | 2024-07-10 18:53 | XMS_ITS | Encounter Summary ---
Author Organization [facility] Address [address] [place] [address] Care Team Providers Care Fryer Operator Name Role Phone Desirae Wells MD Primary Care Provider Unav Ashley Diallo NP Primary Care Provider [phone] Rachel Chandra MD Primary Care Provider [phone] Encounter Details Date Type Department Care Team (Late st Contact Info) Description 04/04/2009 Orders Only [facility] [address] [place] [address] Ember Rust MD [address] [place] [address] Social History Tobacco Use Types Packs/Day Years [...] on file documented as of this encounter Progress Notes * Ana Negrete LVN LPN - 04/12/2009 12:50 PM ESTQuick Note: lm * Ember Rust MD - 04/11/2009 7:50 PM ESTQuick Note: Please advise patient of the results of his recent blood tests were all normal except 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 documented in this encounter Plan of Treatment Not on file documented as of this encounter Procedures Procedure Name Priority Date/Time Associated Diagnosis Comments HIV 1 & 2 SCREEN WITH REFLEX Routine 04/04/2009 Screening examination for venereal disease HERPES SIMPLEX VIRUS 1 AND 2 IGG HERPESELECT SPECIFIC ANTIBODY Routine 04/04/2009 Screening examination for venereal disease ALANINE AMINOTRANSFERASE (ALT), SERUM Routine 04/04/2009 Screening examination for venereal disease ASPARTATE AMINOTRANSFERASE (AST), SERUM Routine 04/04/2009 Screening examination for venereal disease documented in this encounter Results * ALANINE AMINOTRANSFERASE (ALT), SERUM (04/04/2009) ALT (SGPT) 23 9 - 60 U/L [facility] 04/04/2009 04/04/2009 9:2 9 PM EST Narrative [facility] - 04/05/2009 11:10 PM EST Report Comments: REMINDER: ??!!!!! DON'T FORGET TO HAVE THE PATIENT SIGN THE HIV CONSENT FORM. PUT A LABEL ON IT AND SEND IT TO [facility] FOR FILING. THIS IS A STATE REQUIREMENT !!!!! Ember Rust MD LAB SAME DAY RESULT Final Result [facility] [address] [place] [address] * ASPARTATE AMINOTRANSFERASE (AST), SERUM (04/04/2009) AST (SGOT) 16 10 - 40 U/L [facility] 04/04/2009 04/04/2009 9:2 9 PM EST Narrative [facility] - 04/05/2009 11:10 PM EST Report Comments: REMINDER: ??!!!!! DON'T FORGET TO HAVE THE PATIENT SIGN THE HIV CONSENT FORM. PUT A LABEL ON IT AND SEND IT TO [facility] FOR FILING. THIS IS A STATE REQUIREMENT !!!!! Ember Rust MD LAB SAME DAY RESULT Final Result Performing Organization Address [facility]/ZIP Co de Phone Number [facility] [address] [place] [address] * (ABNORMAL) HERPES SIMPLEX VIRUS 1 AND 2 IGG HERPESELECT SPECIFIC ANTIBODY (04/04/2009) [facility] HERPES SIMPLEX 1 AB.IGG < 0.9 0.00 - 0.89 INDEX [facility] HERPES SIMPLEX 2 AB.IGG 3.37(H) 0.00 - 0.89 INDEX [facility] Comment: INDEX VALUES FOR HSV-1 AND HSV-2 IGG ANTIBODIES: ?<0.90 ? NEGATIVE ?0.90-1.10 EQUIVOCAL ?>1.10 ? POSITIVE [facility] HERPESELECT ASSAY THIS ASSAY IS TYPE SPECIFIC AND WILL DIFFERENTIATE BETWEEN HSV-1 AND HSV-2 INFECTIONS. A SINGLE POSITIVE RESULT ONLY INDICATES PREVIOUS IMMUNOLOGIC EXPOSURE AND THE LEVEL OF ANTIBODY RESPONSE MAY NOT BE USED TO DETERMINE ACTIVE INFECTION OR DISEASE STAGE. THE TEST SHOULD BE REPEATED IN 4-6 WEEKS WHEN NEGATIVE OR EQUIVOCAL RESULTS ARE OBTAINED IN SUSPECTED EARLY HERPES SIMPLEX DISEASE. THE PERFORMANCE OF THIS ASSAY HAS NOT BEEN ESTABLISHED FOR PEDIATRIC POPULATIONS, FOR SCREENING, OR FOR THE TESTING OF IMMUNOCOMPROMISED PATIENTS. 04/04/2009 04/04/2009 9:2 9 PM EST Narrative [facility] - 04/07/2009 11:57 AM EST Report Comments: REMINDER: ??!!!!! DON'T FORGET TO HAVE THE PATIENT SIGN THE HIV CONSENT FORM. PUT A LABEL ON IT AND SEND IT TO [facility] FOR FILING. THIS IS A STATE REQUIREMENT !!!!! us Ember Rust MD LABORATORY Final Result Performing Organization Address [facility]/ZIP Co de Phone Number [facility] [address] [place] [address] * HIV 1 & 2 SCREEN WITH REFLEX (04/04/2009) [facility] Signature HIV 1/2 EIA ANTIBODY SCREEN SEE TEXT [facility] Comment: ?TESTING METHOD ?RESULT ?------ ?EIA HIV 1/2 ? NON-REACTIVE ?INTERPRETATION ?NO HIV ANTIBODY DETECTED A NON-REACTIVE HIV 1/2 ANTIBODY RESULT DOES NOT EXCLUDE HIV INFECTION SINCE THE TIME FRAME FOR SEROCONVERSION IS VARIABLE. ??IF ACUTE HIV INFECTION IS SUSPECTED, ANTIBODY RETESTING AND NUCLEIC ACID AMPLIFICATION (HIV DNA/RNA) TESTING IS RECOMMENDED. IT IS IMPORTANT TO UNDERSTAND THE LIMITATIONS OF THIS TEST. FOR MORE INFORMATION CONCERNING THESE TEST RESULTS, PLEASE CALL [phone] 04/04/2009 04/04/2009 9:2 9 PM EST Narrative [facility] - 04/05/2009 11:51 AM EST Report Comments: REMINDER: ??!!!!! DON'T FORGET TO HAVE THE PATIENT SIGN THE HIV CONSENT FORM. PUT A LABEL ON IT AND SEND IT TO [facility] FOR FILING. THIS IS A STATE REQUIREMENT !!!!! Ember Rust MD LABORATORY Final Result Performing Organization Address City/State/[place] Co de Phone Number [facility] [address] [place] [address] documented in this encounter Visit Diagnoses Diagnosis Screening examination for venereal disease documented in this encounter Additional Health Concerns [...] documented as of this encounter Care Teams Fryer Operator Relationship Specialty Start Date End Date Desirae Wells MD PCP - General 05/26/05 03/12/17 Ashley Kim NP PCP - General Internal Medicine 03/13/17 06/17/24 Rachel Chandra MD [address] [place] [address] PCP - General 06/18/24 documented as of this encounter
--- OUTSIDE RECORDS SUMMARY | 2024-07-10 18:53 | XMS_ITS | Encounter Summary ---
Author Organization [facility] Address [address] [place] [address] Care Team Providers Care Guard Immigration Name Role Phone Desirae Wells MD Primary Care Provider Unav Ashley Diallo NP Primary Care Provider [phone] Rachel Chandra MD Primary Care Provider [phone] Encounter Details Date Type Department Care Team (Late st Contact Info) Description 05/05/2008 Orders Only [facility] [address] [place] [address] Vimal Yun MD Social History Tobacco Use Types Packs/Day [...] Procedure Name Priority Date/Time Associated Diagnosis Comments CULTURE, STREP SCREEN (GROUP A), THROAT Routine 05/05/2008 Streptococcal Sore Throat documented in this encounter Results * CULTURE, STREP SCREEN (GROUP A), THROAT (05/05/2008) Result(s) SEE TEXT Comment: SOURCE: THROAT NO GROUP A STREPTOCOCCI ISOLATED 05/05/2008 05/06/2008 12: 40 AM EST Vimal Yun MD LABORATORY Final Res ult documented in this encounter Visit Diagnoses Diagnosis Streptococcal sore throat documented in this encounter Additional Health Concerns [...] documented as of this encounter Care Teams Guard Immigration Relationship Specialty Start Date End Date Desirae Wells MD PCP - General 05/26/05 03/12/17 Ashley Kim NP PCP - General Internal Medicine 03/13/17 06/17/24 Rachel Chandra MD [address] [place] [id number] PCP - General 06/18/24 documented as of this encounter
--- OUTSIDE RECORDS SUMMARY | 2024-07-10 18:53 | XMS_ITS ---
Author Name [facility] Organization Unknown Results Test Name/Text Value Interpretation Date Range Source SODIUM MMOL/L IN SER/PLAS 136mmol/L [id number] 136 - 145 [facility] GLUCOSE RANDOM 116mg/dL [id number] 70 - 140 [facility] CALCIUM MG/DL IN SER/PLAS 7.9mg/dL Below low normal [id number] 8.6 - 10.4 [facility] GLOMERULAR FILTRATION RATE 90mL/min/1.73 m*2 90 - [facility] ANION GAP 3 IN SER/PLAS 13mmol/L [id number] 6 - 19 [facility] CREATININE MG/DL IN SER/PLAS 0.89mg/dL 0.6 - 1.2 [facility] CO2 26mmol/L [id number] 20 - 31 [facility] UREA NITROGEN MG/DL IN SER/PLAS 8mg/dL [id number] 6 - 24 [facility] CHLORIDE 97mmol/L Below low normal [id number] 98 - 110 [facility] POTASSIUM MMOL/L IN SER/PLAS 3.8mmol/L [id number] 3.5 - 5.3 [facility] ETOH 374.2mg/dL Above high normal 182257069413 - 10 [facility] COCAINE SCREEN, URINE Negative [id number] - [facility] BARBITURATE SCREEN URINE Negative 728487953418 - [facility] OPIATE SCREEN URINE Negative 009312864556 - [facility] CANNABINOID SCREEN URINE Negative 181695538873 - [facility] AMPHETAMINE SCREEN, URINE Negative 440898393627 - [facility] FENTANYL SCREEN, URINE Negative 393812644773 - [facility] BENZODIAZEPINE SCREEN, URINE Positive Abnormal 803040961655 - [facility] METHADONE URINE Negative 917707131816 - [facility] HEMOGLOBIN IN BLOOD 15.1g/dL 13. 5 - 17.5 [facility] MONOCYTES RELATIVE PERCENT BY AUTOMATED COUNT 4.6% [facility] EOSINOPHILS RELATIVE PERCENT BY AUTOMATED COUNT 0.8% [facility] NUCLEATED RED BLOOD CELLS (NRBC) 0/100WBCs 0 - 1 [facility] LYMPHOCYTES ABSOLUTE BY AUTOMATED COUNT 1.510*3/uL 0.9 - 2.9 [facility] IMM GRANULOCYTES ABS BY AUTO COUNT 010*3/uL [id number] [facility] MEAN CORPUSCULAR VOLUME (MCV) 87.6fL 81.2 - 95.1 [facility] EOSINOPHILS ABSOLUTE BY AUTOMATED COUNT 010*3/uL 0 - 0.5 [facility] RBC IN BLOOD BY AUTOMATED COUNT 510*6/uL 4.32 - 5.72 [facility] MEAN CORPUSCULAR HEMOGLOBIN CONCENTRATION (MCHC) 34.5g/dL 33.4 - 35.5 [facility] IMM GRANULOCYTES REL PCT BY AUTO COUNT 0.3% [facility] MEAN CORPUSCULAR HEMOGLOBIN (MCH) 30.2pg [id number] 27.5 - 33.2 [facility] MEAN PLATELET VOLUME (MPV) 8.9fL [id number] 7.4 - 11 [facility] WBC IN BLOOD BY AUTOMATED COUNT 3.7110*3/uL 3.5 - 10.5 [facility] NEUTROPHILS RELATIVE PERCENT BY AUTOMATED COUNT 52.6% [facility] NEUTROPHILS ABSOLUTE BY AUTOMATED COUNT 210*3/uL 1.7 - 7 [facility] PLATELETS BY AUTOMATED COUNT 32151*3/uL Below low normal 363985064748 150 - 450 [facility] LYMPHOCYTES RELATIVE PERCENT BY AUTOMATED COUNT 40.4% [facility] RED CELL DISTRIBUTION WIDTH (RDW) 15.2% [id number] 11.8 - 15.6 [facility] BASOPHILS RELATIVE PERCENT BY AUTOMATED COUNT 1.3% [facility] MONOCYTES ABSOLUTE BY AUTOMATED COUNT 0.210*3/uL Below low normal [id number] 0.3 - 0.9 [facility] HEMATOCRIT BY AUTOMATED COUNT 43.8% [id number] 38.8 - 50 [facility] BASOPHILS ABSOLUTE BY AUTOMATED COUNT 0.110*3/uL 0 - 0.2 [facility] CALCIUM MG/DL IN SER/PLAS 8.5mg/dL Below low normal 8.6 - 10.4 [facility] ANION GAP 3 IN SER/PLAS 9mmol/L Normal 6 - 19 [facility] POTASSIUM MMOL/L IN SER/PLAS 3.8mmol/L Normal 3.5 - 5.3 [facility] SODIUM MMOL/L IN SER/PLAS 140mmol/L Normal 136 - 145 [facility] GLUCOSE RANDOM 107mg/dL Normal 70 - 140 [facility] CO2 31mmol/L Normal 20 - 31 [facility] UREA NITROGEN MG/DL IN SER/PLAS 6mg/dL Normal 6 - 24 [facility] CHLORIDE 100mmol/L Normal 98 - 110 [facility] GLOMERULAR FILTRATION RATE 90mL/min/1.73 m*2 Normal 90 - [facility] CREATININE MG/DL IN SER/PLAS 0.87mg/dL Normal 0.6 - 1.2 [facility] ETOH 384.7mg/dL Above high normal [id number] - 10 [facility] ACETAMINOPHEN LEVEL 2ug/ml Normal 0 - 20 [facility] SALICYLATE LEVEL 3mg/dL Normal 0 - 30 [facility] MEAN CORPUSCULAR HEMOGLOBIN CONCENTRATION (MCHC) 33.5g/dL Normal 33.4 - 35.5 [facility] WBC IN BLOOD BY AUTOMATED COUNT 3.5610*3/uL Normal 3.5 - 10.5 [facility] MONOCYTES RELATIVE PERCENT BY AUTOMATED COUNT 3.7% Normal [facility] MONOCYTES ABSOLUTE BY AUTOMATED COUNT 0.110*3/uL Below low normal 0.3 - 0.9 [facility] EOSINOPHILS ABSOLUTE BY AUTOMATED COUNT 010*3/uL Normal 0 - 0.5 [facility] RED CELL DISTRIBUTION WIDTH (RDW) 14.6% Normal 11.8 - 15.6 [facility] BASOPHILS RELATIVE PERCENT BY AUTOMATED COUNT 1.1% Normal [facility] MEAN CORPUSCULAR HEMOGLOBIN (MCH) 29.9pg Normal 27.5 - 33.2 [facility] RBC IN BLOOD BY AUTOMATED COUNT 5.4210*6/uL Normal 4.32 - 5.72 [facility] IMM GRANULOCYTES ABS BY AUTO COUNT 010*3/uL Normal [facility] HEMOGLOBIN IN BLOOD 16.2g/dL Normal 13. 5 - 17.5 [facility] IMM GRANULOCYTES REL PCT BY AUTO COUNT 0.3% Normal [facility] K NEUTROPHILS RELATIVE PERCENT BY AUTOMATED COUNT 41.3% Normal [facility] BASOPHILS ABSOLUTE BY AUTOMATED COUNT 010*3/uL Normal 0 - 0.2 [facility] NUCLEATED RED BLOOD CELLS (NRBC) 0/100WBCs Normal 0 - 1 [facility] LYMPHOCYTES RELATIVE PERCENT BY AUTOMATED COUNT 52.5% Normal [facility] HEMATOCRIT BY AUTOMATED COUNT 48.4% Normal 38.8 - 50 [facility] LYMPHOCYTES ABSOLUTE BY AUTOMATED COUNT 1.910*3/uL Normal 0.9 - 2.9 [facility] MEAN CORPUSCULAR VOLUME (MCV) 89.3fL Normal [id number] 81.2 - 95.1 [facility] PLATELETS BY AUTOMATED COUNT 68017*3/uL Below low normal [id number] 150 - 450 [facility]K NEUTROPHILS ABSOLUTE BY AUTOMATED COUNT 1.510*3/uL Below low normal [id number] 1.7 - 7 [facility] EOSINOPHILS RELATIVE PERCENT BY AUTOMATED COUNT 1.1% Normal [facility] MEAN PLATELET VOLUME (MPV) 8.5fL Normal [id number] 7.4 - 11 [facility] SQUAMOUS EPITHELIAL /LPF 0 to 3 Few Normal - [facility] LEUKOCYTES /HPF IN URINE SEDIMENT BY MICROSCOPY 0-5 Rare Normal - [facility] CRYSTALS UA None Seen Normal - [facility] BACTERIA /HPF IN URINE SEDIMENT BY MICROSCOPY 1-9 Few Abnormal - [facility] CASTS, UA Coarse Granular Casts Abnormal [id number] - [facility] ERYTHROCYTES /HPF IN URINE SEDIMENT BY MICROSCOPY 0-2 Rare Normal - [facility] CANNABINOID SCREEN URINE Negative Normal - [facility] BARBITURATE SCREEN URINE Negative Normal - [facility] OPIATE SCREEN URINE Negative Normal - [facility] BENZODIAZEPINE SCREEN, URINE Positive Abnormal - [facility] FENTANYL SCREEN, URINE Negative Normal - [facility] METHADONE URINE Negative Normal - R [facility] AMPHETAMINE SCREEN, URINE Negative Normal - [facility] COCAINE SCREEN, URINE Negative Normal - [facility] LEUKOCYTE ESTERASE IN URINE BY AUTOMATED TEST STRIP Negative Normal - [facility] BILIRUBIN, TOTAL IN URINE BY AUTOMATED TEST STRIP Negative Normal - [facility] BLOOD IN URINE BY AUTOMATED TEST STRIP Trace Abnormal - [facility] GLUCOSE IN URINE BY AUTOMATED TEST STRIP Negative Normal - [facility] UROBILINOGEN IN URINE BY AUTOMATED TEST STRIP E.U./DL <2.0 Normal [id number] - [facility] CLARITY OF URINE Clear Normal - [facility] PH OF URINE BY AUTOMATED TEST STRIP 5.5 Normal [id number] 5 - 8 [facility] COLOR OF URINE Yellow Normal [id number] - [facility] KETONES IN URINE BY AUTOMATED TEST STRIP 50000 Negative Normal [id number] - [facility] SPECIFIC GRAVITY OF URINE BY AUTOMATED TEST STRIP 1.01 Normal [id number] 1.005 - 1.03 [facility] NITRITE IN URINE BY AUTOMATED TEST STRIP Negative Normal [id number] - [facility] PROTEIN IN URINE BY AUTOMATED TEST STRIP 2+ Abnormal [id number] - [facility] Encounters Encounter Type Encounter Reason Primary Diagnosis Location Date Emergency Alcohol Intoxication Alcohol dep endence, uncomplicated [facility] 07/09/2024 Emergency Psychiatric Evaluation Alcohol abuse, uncomplicated [facility] 07/02/2024 Care Team Organization Name Specialty Phone Email Start Date End Da te [facility] 07/03/2024 [facility] NONE PCP Primary Care [facility] 07/03/19 25
--- OUTSIDE RECORDS SUMMARY | 2024-07-10 18:53 | XMS_ITS | Encounter Summary ---
Author Organization [facility] Address [address] [place] [address] Care Team Providers Care Novelty Maker Name Role Phone Desirae Wells MD Primary Care Provider Unav Ashley Diallo NP Primary Care Provider [phone] Rachel Chandra MD Primary Care Provider [phone] Encounter Details Date Type Department Care Team (Late st Contact Info) Description 08/16/2007 Orders Only [facility] [address] [place] [address] Maranda Escobedo, [employer] BI ADMINISTRATOR [address] [place] [address] Social History Tobacco Use Types Packs/Day Years [...] Name Priority Date/Time Associated Diagnosis Comments CULTURE, THROAT Routine 08/16/2007 ASTHMA ACUTE PHARYNGITIS documented in this encounter Results * CULTURE, THROAT (08/16/2007) Result(s) SEE TEXT [facility] (CLIA# [id number]) Comment: SOURCE: THROAT NORMAL OROPHARYNGEAL THUY 08/16/2007 08/17/2007 12: 47 AM EDT Maranda Ana Luisa Escobedo [employer] BI ADMINISTRATOR LABORATORY Final Resu lt [facility] (CLIA# [id number]) [address] [place] [address] documented in this encounter Visit Diagnoses Diagnosis ASTHMA Unspecified asthma ACUTE PHARYNGITIS Acute pharyngitis documented in this encounter Additional [...] documented as of this encounter Care Teams Novelty Maker Relationship Specialty Start Date End Date Desirae Wells MD PCP - General 05/26/05 03/12/17 Ashley Kim NP PCP - General Internal Medicine 03/13/17 06/17/24 Rachel Chandra MD [address] [place] [address] PCP - General 06/18/24 documented as of this encounter
--- OUTSIDE RECORDS SUMMARY | 2024-07-10 18:53 | XMS_ITS | Encounter Summary ---
Author Organization [facility] Address [address] [place] [address] Care Team Providers Care Oil Seal Assembler Name Role Phone Ashley Kim NP Primary Care Provider [phone] Rachel Chandra MD Primary Care Provider Encounter Details Date Type Department Care Team (Late st Contact Info) Description 03/15/2020 Orders Only [facility] [address] [place] [phone] Ashley Kim NP [address] [place] [address] Social History Tobacco Use Types Packs/Day Years [...] as of this encounter Visit Diagnoses Diagnosis Lipids blood increased Other and unspecified hyperlipidemia Screening for diabetes mellitus HTN (hypertension), benign Essential hypertension, benign documented in this encounter Additional Health Concerns Infection Onset Date Last Indicated Resolved Time COVID-19 Rule-Out 04/09/2020 04/09/2020 04/11/2020 11:07 AM EST COVID-19 Rule-Out 08/25/2020 08/25/2020 08/26/2020 11:07 AM EDT COVID-19 Rule-Out 10/25/2020 10/25/2020 10/25/2020 7:44 PM EDT COVID-19 Confirmed 10/27/2020 10/27/2020 8:12 PM EST COVID-19 Confirmed 03/03/2021 03/03/2021 2 8:12 PM EDT documented as of this encounter Care Teams Oil Seal Assembler Relationship Specialty Start Date End Date Ashley Kim NP PCP - General Internal Medicine 03/13/17 06/17/24 Rachel Chandra MD [address] [place] [address] PCP - General 06/18/24 documented as of this encounter
--- OUTSIDE RECORDS SUMMARY | 2024-07-10 18:53 | XMS_ITS | Encounter Summary ---
Author Organization [facility] Address [address] [place] [address] Care Team Providers Care Technical Sales Support Manager Name Role Phone Desirae Wells MD Primary Care Provider Unav Ashley Diallo NP Primary Care Provider [phone] Rachel Chandra MD Primary Care Provider [phone] Encounter Details Date Type Department Care Team (Late st Contact Info) Description 08/10/2008 Orders Only [facility] [address] [place] [phone] Desirae Wells MD Social History Tobacco Use [...] Procedure Name Priority Date/Time Associated Diagnosis Comments LIPID PANEL + CARDIAC RISK WITH REFLEX TO LDL DIRECT Routine 08/10/2008 Screening Cholesterol Level HIV 1 & 2 SCREEN WITH REFLEX Routine 08/10/2008 Screen for STD (Sexually Transmitted Disease) HEPATITIS B SURFACE ANTIBODY, QUANTITATIVE Routine 08/10/2008 Screen for STD (Sexually Transmitted Disease) NEISSERIA GONORRHOEAE (GC), SDA (GENITAL SWAB) Routine 08/10/2008 Screen for STD (Sexually Transmitted Disease) CHLAMYDIA TRACHOMATIS, SDA (GENITAL SWAB) Routine 08/10/2008 Screen for STD (Sexually Transmitted Disease) HEPATITIS C ANTIBODY (EIA-2) Routine 08/10/2008 Screen for STD (Sexually Transmitted Disease) RPR Routine 08/10/2008 Screen for STD (Sexually Transmitted Disease) THYROID CASCADE Routine 08/10/2008 Panic Disorder FACTOR V LEIDEN Routine 08/10/2008 Family History of Thromboembolic Disease HEPATIC FUNCTION PANEL Routine 08/10/2008 Panic Disorder documented in this encounter Results * THYROID CASCADE (08/10/2008) TSH, THYROTROPIN 1.03 0.40 - 4.50 UIU/ML 08/10/2008 08/11/2008 1:1 4 AM EDT us S Shirlene Wells MD LABORATORY Final Resul t * HEPATIC FUNCTION PANEL (08/10/2008) Total Protein 7.3 6.2 - 8.3 G/DL ALBUMIN 4.7 3.7 - 5.1 G/DL GLOBULIN 2.6 2.1 - 3.7 G/DL ALBUMIN/GLOBULIN RATIO 1.8 1.0 - 2.1 BILIRUBIN TOTAL 0.8 0.2 - 1.2 MG/DL BILIRUBIN DIRECT 0.1 0 - 0.3 MG/DL ALKALINE PHOSPHATASE 63 40 - 115 U/L AST (SGOT) 20 10 - 40 U/L ALT (SGPT) 17 9 - 60 U/L 08/10/2008 08/11/2008 1:1 4 AM EDT S Shirlene Wells MD LABORATORY Final Resul t * (ABNORMAL) FACTOR V LEIDEN (08/10/2008) Pathologist [facility] MUTATION SEE NOTE(A) [facility] Comment: RESULT: POSITIVE FOR ONE 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 ??IN ADDITION, OTHER FAMILY MEMBERS MAY ALSO BE CARRIERS OF THE MUTATION AND SIMILARLY AT RISK. ??CONSIDER GENETIC COUNSELING AND DNA TESTING FOR AT-RISK FAMILY MEMBERS. LABORATORY TESTING SUPERVISED AND RESULTS MONITORED BY Salome HOBSON, PH.D., [facility], DIRECTOR, MOLECULAR GENETICS. FACTOR V LEIDEN IS ONE OF THE MOST COMMON CAUSES OF INHERITED THROMBOPHILIA. ??THE R506Q MUTATION LEADS TO RESISTANCE TO DEGRADATION OF THE FACTOR V PROTEIN BY ACTIVATED PROTEIN C (APC). ??INDIVIDUALS WHO HAVE ONE COPY OF THE MUTATION ARE AT A 4-8 FOLD INCREASED RISK OF THROMBOSIS AND INDIVIDUALS WHO HAVE TWO COPIES ARE AT A 50-100 FOLD INCREASED RISK. THE R506Q MUTATION IS DETECTED BY SIGNAL AMPLIFICATION OF THE FACTOR V GENE BY ALLELE- SPECIFIC HYBRIDIZATIONS AND CHEMILUMINESCENT DETECTION OF HYBRIDIZED PROBES. ??SINCE GENETIC VARIATION AND OTHER FACTORS CAN AFFECT THE ACCURACY OF DIRECT MUTATION TESTING, THESE RESULTS SHOULD BE INTERPRETED IN LIGHT OF CLINICAL AND FAMILIAL DATA. THIS TEST WAS DEVELOPED AND ITS PERFORMANCE CHARACTERISTICS HAVE BEEN DETERMINED BY [facility], [place], [place]. IT HAS NOT BEEN CLEARED OR APPROVED BY THE [place]. FOOD AND DRUG ADMINISTRATION. THE FDA HAS DETERMINED THAT SUCH CLEARANCE OR APPROVAL IS NOT NECESSARY. PERFORMANCE CHARACTERISTICS REFER TO THE ANALYTICAL PERFORMANCE OF THE TEST. 08/10/2008 08/11/2008 1:1 4 AM EDT us S Shirlene Wells MD LABORATORY Final Resul t [facility] [address] [place] [address] * LIPID PANEL + CARDIAC RISK WITH REFLEX TO LDL DIRECT (08/10/2008) Pathologist [facility] CHOLESTEROL, TOTAL 142 125 - 200 MG/DL TRIGLYCERIDES 110 30 - 149 MG/DL HDL-CHOLESTEROL 45 40 - 77 MG/DL LDL-CHOLESTEROL 75 62 - 130 MG/DL Comment: RISK CATEGORY: ??LDL-CHOLESTEROL GOAL CHD AND CHD RISK EQUIVALENTS: ??<100 MULTIPLE (2+) FACTORS: ??<130 ZERO TO ONE RISK FACTOR: ??<160 CHD RELATIVE RISK RATIO (TOTAL/HDL) 3.16 0.0 - 5.0 Comment:(0.4 X AVERAGE) 08/10/2008 08/11/2008 1:1 4 AM EDT [facility] Shirlene Wells MD LABORATORY Final Resul t * CHLAMYDIA TRACHOMATIS, SDA (GENITAL SWAB) (08/10/2008) CHLAMYDIA TRACHOMATIS DNA SEE TEXT [facility] Comment: SOURCE: URINE NOT DETECTED CT/NG SDA REFERENCE RANGE: NOT DETECTED 08/10/2008 08/11/2008 1:1 4 AM EDT [facility] Shirlene Wells MD LABORATORY Final Resul t Performing Organization Address City/State/[facility] Co de Phone Number [facility] [address] [place] [address] * NEISSERIA GONORRHOEAE (GC), SDA (GENITAL SWAB) (08/10/2008) NEISSERIA GONORRHOEAE DNA SEE TEXT [facility] Comment: SOURCE: URINE NOT DETECTED 08/10/2008 08/11/2008 1:1 4 AM EDT [facility] Shirlene Wells MD LABORATORY Final Resul t Performing Organization Address City/State/[facility] Co de Phone Number [facility] [address] [place] [address] * HIV 1 & 2 SCREEN WITH REFLEX (08/10/2008) HIV 1/2 EIA ANTIBODY SCREEN SEE TEXT [...] INFORMATION CONCERNING THESE TEST RESULTS, PLEASE CALL [phone] 08/10/2008 08/11/2008 1:1 4 AM EDT S Shirlene Wells MD LABORATORY Final Resul t Performing Organization Address [facility] Phone Number [facility] [address] [place] [address] * RPR (08/10/2008) RPR NON-REACTI VE NON-REACTI VE [facility] 08/10/2008 08/11/2008 1:1 4 AM EDT S Shirlene Wells MD LABORATORY Final Resul t Performing Organization Address [facility] Phone Number [facility] [address] [place] [address] * HEPATITIS B SURFACE ANTIBODY, QUANTITATIVE (08/10/2008) HEPATITIS B SURFACE AB QUANTITATIVE < 5 MIU/ML [facility] Comment: < 10MIU/ML PATIENT DOES NOT HAVE IMMUNITY TO HEPATITIS B VIRUS. > OR EQUAL TO 10 MIU/ML ??PATIENT HAS IMMUNITY TO HEPATITIS B VIRUS. 08/10/2008 08/11/2008 1:1 4 AM EDT S Shirlene Wells MD LABORATORY Final Resul t Performing Organization Address [facility] de Phone Number [facility] [address] [place] [address] * HEPATITIS C ANTIBODY (EIA-2) (08/10/2008) HEPATITIS C AB NON-REACTI VE NON-REACT MATILDE [facility] 08/10/2008 08/11/2008 1:1 4 AM EDT S Shirlene Wells MD LABORATORY Final Resul t [facility] [address] [place] [address] documented in this encounter Visit Diagnoses Diagnosis Screen for STD (sexually transmitted disease) Screening examination for venereal disease Screening cholesterol level Screening for lipoid disorders Family history of thromboembolic disease Family history of other condition Panic disorder Panic disorder without agoraphobia documented in this encounter Additional Health Concerns [...] documented as of this encounter Care Teams Technical Sales Support Manager Relationship Specialty Start Date End Date Desirae Wells MD PCP - General 05/26/05 03/12/17 Ashley Kim NP PCP - General Internal Medicine 03/13/17 06/17/24 Rachel Chandra MD [address] [place] [address] PCP - General 06/18/24 documented as of this encounter
--- OUTSIDE RECORDS SUMMARY | 2024-07-10 18:53 | XMS_ITS | Encounter Summary ---
Author Organization [facility] Address [address] [place] [address] Care Team Providers Care Technical Report Writer Name Role Phone Ashley Kim NP Primary Care Provider [phone] Rachel Chandra MD Primary Care Provider [phone] Reason for Visit * Reason Comments Denial Encounter Details Date Type Department Care Team ([facility] Contact Info) Description 04/01/2017 Telephone [facility] Magnetic Resonance Imaging [address] [place] [address] Liz Leal MD [address] [place] [address] Denial Social History Tobacco Use Types Packs/Day Years Used Date Smoking Tobacco: Never Smokeless Tobacco: Never Alcohol Use Standard Drinks/Week Comments Yes 0 (1 standard drink = 0.6 oz pure alcohol) more in summer, less during school/work year. during summer--, 14 during work year. Sex and Gender Information Value Date Recorded Sex Assigned at Male 08/28/2022 9:04 AM EDT Legal Sex Male 6:16 PM EDT Gender Identity Male 08/28/2022 9:04 AM EDT Sexual Orientation Not on file documented as of this encounter Miscellaneous Notes * Telephone Encounter - Liz Leal MD - 04/01/2017 11:53 AM EST MRI BRAIN only for now. I have canceled MRA * Telephone Encounter - Rashad Bliss - 04/01/2017 11:10 AM EST I have contacted [facility] to obtain a [facility] authorization for the MRI of the Brain and the MRAof the Head you ordered for this patient. The Brain MRI has been approved, but we have been informed that the MRA of the Head has been denied by [facility]'s clinical reviewers and will require a [id number] between the ordering physician and one of [facility]'s physician reviewers before approval can be granted. Please contact [facility] at [phone], select option 3, and reference case # [id number] to speak to a physician reviewer about this request. Please inform me of the outcome of the [id number]. Alternatively, you may elect to cancel the Head MRA and proceed with the MRI of the Brain only for the time being. Please let me know your decision in either case. Thank you. documented in this encounter Plan of Treatment [...] 10/25/2020 7:44 PM EDT COVID-19 Confirmed 10/27/2020 10/27/2020202 1 8:12 PM EST COVID-19 Confirmed 03/03/2021 03/03/2021 2 8:12 PM EDT documented as of this encounter Care Teams Technical Report Writer Relationship Specialty Start Date End Date Ashley Kim NP PCP - General Internal Medicine 03/13/17 06/17/24 Rachel Chandra MD [address] [place] [id number] PCP - General 06/18/24 documented as of this encounter
--- OUTSIDE RECORDS SUMMARY | 2024-07-10 18:53 | XMS_ITS | Encounter Summary ---
Author Organization [facility] Address [address] [place] [address] Care Team Providers Care Medical Management Trainer Name Role Phone Desirae Wells MD Primary Care Provider Unav Ashley Diallo NP Primary Care Provider [phone] Rachel Chandra MD Primary Care Provider [phone] Encounter Details Date Type Department Care Team (Late st Contact Info) Description 07/19/2008 Orders Only [facility] [address] [place] [phone] Desirae Wells MD Social History Tobacco Use [...] on file documented as of this encounter Results * (ABNORMAL) FACTOR V LEIDEN (08/10/2008) MUTATION SEE NOTE(A) [facility] Comment: RESULT: POSITIVE FOR ONE COPY OF [...] AND RESULTS MONITORED BY Salome HOBSON, PH.D., [facility], DIRECTOR, MOLECULAR GENETICS. FACTOR V LEIDEN IS [...] ITS PERFORMANCE CHARACTERISTICS HAVE BEEN DETERMINED [facility] [place] [place]. IT HAS NOT BEEN CLEARED OR [...] HEALTH CARE SERVICES Co de Phone Number [facility] [address] [place] [address] documented in this encounter Visit Diagnoses Diagnosis Family history of thromboembolic disease- Primary Family history of other condition documented in this encounter Additional Health Concerns [...] documented as of this encounter Care Teams Medical Management Trainer Relationship Specialty Start Date End Date Desirae Wells MD PCP - General 05/26/05 03/12/17 Ashley Kim NP PCP - General Internal Medicine 03/13/17 06/17/24 Rachel Chandra MD [address] [place] [address] PCP - General 06/18/24 documented as of this encounter
--- OUTSIDE RECORDS SUMMARY | 2024-07-10 18:53 | XMS_ITS | Encounter Summary ---
Author Organization [facility] Address [address] [place] [address] Care Team Providers Care Instructor Psychiatric Aide Name Role Phone Desirae Wells MD Primary Care Provider Unav Ashley Diallo NP Primary Care Provider [phone] Rachel Chandra MD Primary Care Provider [phone] Encounter Details Date Type Department Care Team (Late st Contact Info) Description 07/16/2008 Orders Only [facility] [address] [place] [address] Alyson Madrid NP [facility] Primary Care [address] [place] [address] [id number] Social History Tobacco Use Types Packs/Day Years [...] CULTURE, STREP SCREEN (GROUP A), THROAT Routine 07/16/2008 Acute Pharyngitis documented in this encounter Results * CULTURE, STREP SCREEN (GROUP A), THROAT (07/16/2008) Result(s) SEE TEXT Comment: SOURCE: THROAT NO GROUP A STREPTOCOCCI ISOLATED 07/16/2008 07/16/2008 9:5 4 PM EDT Alyson Madrid [facility] Final Result documented in this encounter Visit Diagnoses Diagnosis Acute pharyngitis documented in this encounter Additional [...] documented as of this encounter Care Teams Instructor Psychiatric Aide Relationship Specialty Start Date End Date Desirae Wells MD PCP - General 05/26/05 03/12/17 Ashley Kim NP PCP - General Internal Medicine 03/13/17 06/17/24 Rachel Chandra MD [address] [place] [address] PCP - General 06/18/24 documented as of this encounter
--- OUTSIDE RECORDS SUMMARY | 2024-07-10 18:53 | XMS_ITS | Encounter Summary ---
Author Organization [facility] Address [address] [place] [address] Care Team Providers Care Floor Refinisher Name Role Phone Desirae Wells MD Primary Care Provider Unav Ashley Diallo NP Primary Care Provider [phone] Rachel Chandra MD Primary Care Provider [phone] Encounter Details Date Type Department Care Team (Late st Contact Info) Description 03/20/2012 Orders Only [facility] [address] [place] [phone] Desirae Wells MD Social History Tobacco Use [...] Procedure Name Priority Date/Time Associated Diagnosis Comments HEPATITIS C AB WITH REFLEX TO RNA PCR, SERUM Routine 03/20/2012 11:29 AM EST Need for hepatitis C screening test VITAMIN D, 25-HYDROXY, TOTAL, IMMUNOASSAY Routine 03/20/2012 11:29 AM EST Alcohol abuse, episodic HEPATIC FUNCTION PANEL (ALT,AST,ALK PH,BILI'S,TP,ALB) Routine 03/20/2012 11:29 AM EST Alcohol abuse, episodic LIPID PANEL WITH REFLEX TO DIRECT LDL Routine 03/20/2012 11:29 AM EST Routine general medical examination at a health care facility BASIC METABOLIC PANEL WITH (GFR) Routine 03/20/2012 11:29 AM EST Asthma documented in this encounter Results * HEPATIC FUNCTION PANEL (03/20/2012 11:29 AM EST) Protein Total (Serum) 7.6 6.1 - 8.1 g/dL [facility] Comment:{PROTEIN, TOTAL {[id number]) Albumin 5.1 3.6 - 5.1 g/dL [facility] Comment:{ALBUMIN {[id number]) Globulin 2.5 1.9 - 3.7 g/dL (calc) [facility] Comment:{GLOBULIN {[id number]) Albumin/Globulin 2.0 1.0 - 2.5 (calc) [facility] Comment:{ALBUMIN/GLOBULIN RA ORA {[id number]) Bilirubin Total 0.9 0.2 - 1.2 mg/dL [facility] Comment:{BILIRUBIN, TOTAL {[id number]) Bilirubin Direct 0.1 < OR = 0.2 mg/dL [facility] Comment:{BILIRUBIN, DIRECT { [id number]) Bilirubin Indirect 0.8 0.2 - 1.2 mg/dL (calc) [facility] Comment:{BILIRUBIN, INDIRECT {[id number]) Alkaline phosphatase 49 40 - 115 U/L [facility] Comment:{ALKALINE PHOSPHATAS E {[id number]) AST (SGOT) 24 10 - 40 U/L [facility] Comment:{AST {[id number]) ALT (SGPT) 30 9 - 60 U/L [facility] Comment:{ALT {[id number]) 03/20/2012 11:2 9 AM EST 03/20/2012 6:21 PM EST Narrative Resulting Agency Comment [id number] us S Shirlene Wells MD LABORATORY Final Resul t [facility] [address] [place] [address] * BASIC METABOLIC PANEL WITH (GFR) (03/20/2012 11:29 AM EST) Glucose 88 65 - 99 mg/dL [facility] Comment: {GLUCOSE {[id number]) ? Fasting reference interval Urea Nitrogen Blood (BUN) 19 7 - 25 mg/dL [facility] Comment:{UREA NITROGEN (BUN) {[id number]) Creatinine 1.11 0.60 - 1.35 mg/dL [facility] Comment:{CREATININE {[id number]) GFR 89 > OR = 60 mL/min/1. 73m2 [facility] Comment:{eGFR NON-AFR. AMERI CAN {[id number]) GFR () 103 > OR = 60 mL/min/1. 73m2 [facility] Comment:{eGFR AMERIC AN {[id number]) BUN/Creatinine Ratio NOT APPLICABLE 6 - (calc) [facility] Comment:{BUN/CREATININE RATI O {[id number]) Sodium 138 135 - 146 mmol/L [facility] Comment:{SODIUM {[id number]) Potassium 4.6 3.5 - 5.3 mmol/L [facility] Comment:{POTASSIUM {[id number]) Chloride 101 98 - 110 mmol/L [facility] Comment:{CHLORIDE {[id number]) Carbon dioxide 26 19 - 30 mmol/L [facility] Comment:{CARBON DIOXIDE {[id number]) Calcium 9.7 8.6 - 10.3 mg/dL [facility] Comment:{CALCIUM {[id number]) 03/20/2012 11:2 9 AM EST 03/20/2012 6:21 PM EST Narrative [facility] - 03/20/2012 8:51 PM EST Please note that this estimated GFR does not include an adjustment for the patient's height or weight, and can therefore, be viewed as reliable only for patients with heights between 60 and 72 . More precise quantification using a 24-hour urine sample or height-based algorithm is recommended for patients outside of this range of height and for those individuals with more precise needs for GFR calculation. Resulting Agency Comment [id number] S Shirlene Wells MD LABORATORY Final Resul t Performing Organization Address [facility] Co de Phone Number [facility] [address] [place] [address] * (ABNORMAL) LIPID PANEL WITH REFLEX TO DIRECT LDL (03/20/2012 11:29 AM EST) Cholesterol 207(H) 125 - 200 mg/dL [facility] Comment:{CHOLESTEROL, TOTAL {[id number]) HDL Cholesterol 47 > OR = 40 mg/dL [facility] Comment:{HDL CHOLESTEROL {[id number]) Triglyceride 117 <150 mg/dL [facility] Comment:{TRIGLYCERIDES {[id number]) LDL Cholesterol 137(H) <130 mg/dL (calc) [facility] Comment: {LDL-CHOLESTEROL {[id number]) Desirable range <100 mg/dL for patients with CHD or diabetes and <70 mg/dL for diabetic patients with known heart disease. CHOL/HDL Ratio 4.4 < OR = 5.0 (calc) [facility] Comment:{CHOL/HDLC RATIO {[id number]) Cholesterol Non-HDL 160(H) mg/dL (calc) [facility] Comment: {NON HDL CHOLESTEROL {[id number]) Target for non-HDL cholesterol is 30 mg/dL higher than LDL cholesterol target. 03/20/2012 11:2 9 AM EST 03/20/2012 6:21 PM EST Narrative Resulting Agency Comment [id number] S Shirlene Wells MD LABORATORY Final Resul t Performing Organization Address [facility]/ZIP Co de Phone Number [facility] [address] [place] [address] * (ABNORMAL) VITAMIN D, 25-HYDROXY, LC/MS/MS (03/20/2012 11:29 AM EST) Vitamin D, 25-OH, Total 29(L) 30 - 100 ng/mL [facility] Comment:{VITAMIN D, 25 OH, T OTAL {[id number]) Vitamin D, D3 (Cholecalciferol ) 29 ng/mL [facility] Comment:{VITAMIN D, 25 OH, D 3 {[id number]) Vitamin D, 25-OH, D2 (Calciferol) <4 ng/mL [facility] Comment: {VITAMIN D, 25 OH, D2 {[id number]) ? 25-OHD3 indicates both endogenous production and ? supplementation. 25-OHD2 is an indicator of exogenous ? sources such as diet or supplementation. Therapy is based on ? measurement of Total 25-OHD, with levels <20 ng/mL indicative ? of Vitamin D deficiency, while levels between 20 ng/mL and ? 30 ng/mL suggest insufficiency. Optimal levels are ? > or = 30 ng/mL. 03/20/2012 11:2 9 AM EST 03/20/2012 6:21 PM EST Narrative Resulting Agency Comment [id number] us S Shirlene Wells MD LABORATORY Final Resul t Performing Organization Address City/State/[facility] Co de Phone Number [facility] [address] [place] [address] * HEPATITIS C ANTIBODY, SERUM (03/20/2012 11:29 AM EST) Hepatitis C virus Ab NON-REACTI VE NON-REACT MATILDE [facility] Comment:{HEPATITIS C ANTIBOD Y {[id number]) Hepatitis C virus Ab Signal/Cutoff 0.02 <1.00 [facility] Comment:{SIGNAL TO CUT-OFF { [id number]) 03/20/2012 11:2 9 AM EST 03/20/2012 6:21 PM EST Narrative Resulting Agency Comment [id number] us S Shirlene Wells MD LABORATORY Final Resul t [facility] [address] [place] [address] documented in this encounter Visit Diagnoses Diagnosis Need for hepatitis C screening test Special screening examination for other specified viral diseases Alcohol abuse, episodic Nondependent alcohol abuse, episodic drinking behavior Routine general medical examination at a health care facility Asthma Unspecified asthma documented in this encounter Additional Health Concerns [...] documented as of this encounter Care Teams Floor Refinisher Relationship Specialty Start Date End Date Desirae Wells MD PCP - General 05/26/05 03/12/17 Ashley Kim NP PCP - General Internal Medicine 03/13/17 06/17/24 Rachel Chandra MD [address] [place] [address] PCP - General 06/18/24 documented as of this encounter
--- OUTSIDE RECORDS SUMMARY | 2024-07-10 18:53 | XMS_ITS | Encounter Summary ---
Author Organization [facility] Address [address] [place] [address] Care Team Providers Care Bolt Sorter Name Role Phone Desirae Wells MD Primary Care Provider Unav Ashley Diallo NP Primary Care Provider [phone] Rachel Chandra MD Primary Care Provider [phone] Encounter Details Date Type Department Care Team (Late st Contact Info) Description 09/19/2007 Orders Only [facility] [address] [place] [address] [place], [place] [address] [place], [place] [id number] Medications Social History Tobacco Use Types Packs/Day Years [...] documented as of this encounter Care Teams Bolt Sorter Relationship Specialty Start Date End Date Desirae Wells MD PCP - General 05/26/05 03/12/17 Ashley Kim NP PCP - General Internal Medicine 03/13/17 06/17/24 Rachel Chandra MD [address] [place] [address] PCP - General 06/18/24 documented as of this encounter
--- OUTSIDE RECORDS SUMMARY | 2024-07-10 18:53 | XMS_ITS | Encounter Summary ---
Author Organization [facility] Address [address] [place] [address] Care Team Providers Care Powder Blender Name Role Phone Ashley Kim NP Primary Care Provider [phone] Rachel Chandra MD Primary Care Provider [phone] Reason for Visit * Reason Comments E-prescribing Refill Request Encounter Details Date Type Department Care Team (Late st Contact Info) Description 04/22/2017 Refill [facility] [address] [place] [phone] Desirae Wells MD E-prescribing Refill Request Social [...] encounter Miscellaneous Notes * Telephone Encounter - Kenny Rao - 04/22/2017 10:54 AM EST Any special requests or concerns? none Faxed/E-prescribed medication renewal request(s) for Isaiah Torrez 36 y.o. male received from pharmacy. Verified and Confirmed pharmacy for patient. Last CPE with this specialty: 09/26/2015 Last OV with this specialty: 04/09/2017 Next OV: No future appointments. Pertinent lab results: No labs suggested for any medication orders signed or pended in this encounter. Refresh if any orders changed. Allergies: Review of patient's allergies indicates no known allergies. BP Readings from Last 1 Encounters: 04/09/17 130/82 Patient Active Problem List Diagnosis Date Noted ??? Lightheadedness 03/27/2017 ??? Dizziness 03/27/2017 ??? Elevated blood pressure (not hypertension) 09/26/2015 [...] to Visit Medication Sig Dispense Refill ??? ClonazePAM 0.5 MG Tab TAKE 1-2 TABLETS BY MOUTH AT BEDTIME. (DO NOT MIX WITH ALPRAZOLAM) 60 Tab0 ??? Lisinopril 10 MG Tab Take one by mouth daily 90 Tab 3 ??? ALPRAZolam 0.5 MG Tab TAKE 1 TO 2 TABLETS BY MOUTH TWICE A DAY 60 Tab 3 ??? Meclizine HCl 12.5 MG Tab 1 [...] SHORTNESS OF BREATH/WHEEZE 17 g 5 ??? [place]-3 Fatty Acids (FISH OIL) 1000 MG Cap 2 CAPSULES DAILY WITH A MEAL ??? WNW-ERM-Dlqahqzd Q49-Zbbhiew E (CO Q-10 VITAMIN E FISH OIL) 49-89-39-200 Cap 1 CAPSULES DAILY ??? B Complex Vitamins (VITAMIN-B COMPLEX) Tab 1 tablet daily ??? Cholecalciferol (VITAMIN D) 1000 UNITS Tab 1 TABLET DAILY ??? Lactobacillus (ACIDOPHILUS) Tab 2 TABLETS DAILY * Telephone Encounter - Hyacinth Tidwell - 04/22/2017 9:49 AM EST Rerouting to pcp office documented in this encounter Plan of Treatment [...] documented as of this encounter Care Teams Powder Blender Relationship Specialty Start Date End Date Ashley Kim NP PCP - General Internal Medicine 03/13/17 06/17/24 Rachel Chandra MD [address] [place] [address] PCP - General 06/18/24 documented as of this encounter
--- OUTSIDE RECORDS SUMMARY | 2024-07-10 18:53 | XMS_ITS | Encounter Summary ---
Author Organization [facility] Address [address] [place] [address] Care Team Providers Care Fishing Lure Assembler Name Role Phone Desirae Wells MD Primary Care Provider Unav Ashley Diallo NP Primary Care Provider [phone] Rachel Chandra MD Primary Care Provider [phone] Encounter Details Date Type Department Care Team (Late st Contact Info) Description 12/11/2006 Orders Only [facility] [address] [place] [phone] Desirae Wells MD Social History Tobacco Use Types Packs/Day Years Used Date Smoking Tobacco: Never Assessed Sex and Gender Information Value Date Recorded Sex Assigned at Male 08/28/2022 9:04 AM EDT Legal Sex Male 6:16 PM EDT Gender Identity Male 08/28/2022 9:04 AM EDT Sexual Orientation Not on file documented as of this encounter Plan of Treatment Pending Results Name Type Priority Associated Diagnoses Date /Time EKG (ELECTROCARDIOGRAM ) cardiovascular Routine PALPITATIONS 12/11/2006 11:24 AM EDT documented as of this encounter Procedures Procedure Name Priority Date/Time Associated Diagnosis Comments EKG-TO BE READ & BILLED BY ADULT OR PEDIATRIC CARDIOLOGY Routine 12/11/2006 11:24 AM EDT PALPITATIONS BASIC METABOLIC PANEL Routine 12/11/2006 PALPITATIONS THYROID CASCADE Routine 12/11/2006 PALPITATIONS CHOLESTEROL, HDL (DIRECT) Routine 12/11/2006 PALPITATIONS CHOLESTEROL, TOTAL Routine 12/11/2006 PALPITATIONS documented in this encounter Results * BASIC METABOLIC PANEL (12/11/2006) CALCIUM 10.2 8.6 - 10.2 MG/DL [facility] (CLIA# [id number]) BUN 11 7 - 25 MG/DL [facility] (CLIA# [id number]) CREATININE 1.1 0.5 - 1.3 MG/DL [facility] (CLIA# [id number]) BUN/Creatinine Ratio 10 6 - 25 [facility] (CLIA# [id number]) Glucose 86 65 - 99 MG/DL [facility] (CLIA# [id number]) SODIUM 141 135 - 146 MMOL/L [facility] (CLIA# [id number]) POTASSIUM 4.4 3.5 - 5.3 MMOL/L [facility] (CLIA# [id number]) CHLORIDE 101 98 - 110 MMOL/L [facility] (CLIA# [id number]) CARBON DIOXIDE 29 21 - 33 MMOL/L [facility] (CLIA# [id number]) 12/11/2006 12/11/2006 7:5 1 PM EDT us S Shirlene Wells MD LAB SAME DAY RESULT Final R esult [facility] (CLIA# [id number]) [address] [place] [address] * CHOLESTEROL, HDL (DIRECT) (12/11/2006) HDL-CHOLESTEROL 47 40 - 77 MG/DL [facility] (CLIA# [id number]) 12/11/2006 12/11/2006 7:5 1 PM EDT us S Shirlene Wells MD LABORATORY Final Resul t Performing Organization Address City/[facility]/ZIP Co de Phone Number [facility] (CLIA# [id number]) [address] [place] [address] * CHOLESTEROL, TOTAL (12/11/2006) CHOLESTEROL, TOTAL 191 125 - 200 MG/DL [facility] (CLIA# [id number]) 12/11/2006 12/11/2006 7:5 1 PM EDT S Shirlene Wells MD LABORATORY Final Resul t Performing Organization Address [facility] Co de Phone Number [facility] (CLIA# [id number]) [address] [place] [address] * THYROID CASCADE (12/11/2006) TSH, THYROTROPIN 1.03 0.40 - 4.50 UIU/ML [facility] (CLIA# [id number]) 12/11/2006 12/11/2006 7:5 1 PM EDT S Shirlene Wells MD LABORATORY Final Resul t Performing Organization Address [facility] Co de Phone Number [facility] (CLIA# [id number]) [address] [place] [address] documented in this encounter Visit Diagnoses Diagnosis PALPITATIONS Palpitations documented in this encounter Additional Health Concerns [...] documented as of this encounter Care Teams Fishing Lure Assembler Relationship Specialty Start Date End Date Desirae Wells MD PCP - General 05/26/05 03/12/17 Ashley Kim NP PCP - General Internal Medicine 03/13/17 06/17/24 Rachel Chandra MD [address] [place] [address] PCP - General 06/18/24 documented as of this encounter
--- OUTSIDE RECORDS SUMMARY | 2024-07-10 18:53 | XMS_ITS | Encounter Summary ---
Author Organization [facility] Address [address] [place] [address] Care Team Providers Care Bridge Construction Inspector Name Role Phone Desirae Wells MD Primary Care Provider Unav Ashley Diallo NP Primary Care Provider [phone] Rachel Chandra MD Primary Care Provider [phone] Encounter Details Date Type Department Care Team (Late st Contact Info) Description 03/20/2012 Orders Only [facility] [address] [place] [address] Ember Rust MD [address] [place] [address] Social History Tobacco Use Types Packs/Day Years [...] as of this encounter Progress Notes * Ember Rust MD - 03/22/2012 11:05 AM ESTQuick Note: Letter sent documented in this encounter Plan of Treatment Not on file documented as of this encounter Procedures Procedure Name Priority Date/Time Associated Diagnosis Comments NEISSERIA GONORRHOEAE (GC) DNA, SDA (URINE) Routine 03/20/2012 11:31 AM EST Screening examination for venereal disease CHLAMYDIA TRACHOMATIS, DNA, SDA (URINE) Routine 03/20/2012 11:31 AM EST Screening examination for venereal disease documented in this encounter Results * NEISSERIA GONORRHOEAE (GC) DNA, SDA (URINE) (03/20/2012 11:31 AM EST) Neisseria gonorrhoeae DNA NOT DETECTED NOT DETECTED [facility] Comment:{NEISSERIA GONORRHOE AE DNA, SDA {[id number]) 03/20/2012 11:3 1 AM EST 03/20/2012 6:21 PM EST Narrative Resulting Agency Comment [id number] us Ember Rust MD LABORATORY Final Result [facility] [address] [place] [address] * CHLAMYDIA TRACHOMATIS, DNA, SDA (URINE) (03/20/2012 11:31 AM EST) Chlamydia trachomatis DNA NOT DETECTED NOT DETECTED [facility] Comment:{CHLAMYDIA TRACHOMAT IS DNA, SDA {[id number]) 03/20/2012 11:3 1 AM EST 03/20/2012 6:21 PM EST Narrative Resulting Agency Comment CHLAMSDA Ember Rust MD LABORATORY Final Result [facility] [address] [place] [address] documented in this encounter Visit Diagnoses Diagnosis Screening examination for venereal disease documented in this encounter Additional Health Concerns Infection Onset Date Last Indicated Resolved Time COVID-19 Rule-Out 01/08/2020 01/08/2020 01/10/2020 5:23 PM EST COVID-19 Rule-Out 04/09/2020 04/09/202004/11/2020 11:07 AM EST COVID-19 Rule-Out 08/25/2020 08/25/2020 08/26/2020 11:07 AM EDT COVID-19 Rule-Out 10/25/2020 10/25/2020 10/25/2020 7:44 PM EDT COVID-19 Confirmed 10/27/2020 10/27/2020 8:12 PM EST COVID-19 Confirmed 03/03/2021 03/03/2021 8:12 PM EDT documented as of this encounter Care Teams Bridge Construction Inspector Relationship Specialty Start Date End Date Desirae Wells MD PCP - General 05/26/05 03/12/17 Ashley Kim NP PCP - General Internal Medicine 03/13/17 06/17/24 Rachel Chandra MD [address] [place] [address] PCP - General 06/18/24 documented as of this encounter
--- OUTSIDE RECORDS SUMMARY | 2024-07-10 18:53 | XMS_ITS | Encounter Summary ---
Author Organization [facility] Address [address] [place] [address] Care Team Providers Care Band Sawyer Name Role Phone Desirae Wells MD Primary Care Provider Unav Ashley Diallo NP Primary Care Provider [phone] Rachel Chandra MD Primary Care Provider [phone] Encounter Details Date Type Department Care Team (Late st Contact Info) Description 07/05/2009 Orders Only [facility] [address] [place] [phone] Desirae Wells MD Social History Tobacco Use [...] as of this encounter Visit Diagnoses Diagnosis Mole (skin)- Primary Benign neoplasm of skin, site unspecified documented in this encounter Additional Health Concerns [...] documented as of this encounter Care Teams Band Sawyer Relationship Specialty Start Date End Date Desirae Wells MD PCP - General 05/26/05 03/12/17 Ashley iKm NP PCP - General Internal Medicine 03/13/17 06/17/24 Rachel Chandra MD [address] [place] [address] PCP - General 06/18/24 documented as of this encounter
--- OUTSIDE RECORDS SUMMARY | 2024-07-10 18:53 | XMS_ITS | Encounter Summary ---
Author Organization [facility] Address [address] [place] [address] Care Team Providers Care Truck Packer Name Role Phone Desirae Wells MD Primary Care Provider Unav Ashley Diallo NP Primary Care Provider [phone] Rachel Chandra MD Primary Care Provider [phone] Encounter Details Date Type Department Care Team (Late st Contact Info) Description 12/27/2009 Orders Only [facility] [address] [place] [phone] Desirae Wells MD Social History Tobacco Use [...] as of this encounter Visit Diagnoses Diagnosis Allergy- Primary Allergy, unspecified not elsewhere classified documented in this encounter Additional Health Concerns [...] documented as of this encounter Care Teams Truck Packer Relationship Specialty Start Date End Date Desirae Wells MD PCP - General 05/26/05 03/12/17 Ashley Kim NP PCP - General Internal Medicine 03/13/17 06/17/24 Rachel Chandra MD [address] [place] [id number] PCP - General 06/18/24 documented as of this encounter
--- OUTSIDE RECORDS SUMMARY | 2024-07-10 18:53 | XMS_ITS | Clinical Summary ---
Author Organization [facility] Address [address] [place] [address] Care Team Providers Care Postdoctoral Scientist Name Role Phone Sarah Kimberly Gladis Primary Care Provider [phone] Allergies No known active allergies Medications * This document contains information received from the source organization and may not represent a complete record from that organization. escitalopram (LEXAPRO) 10 mg tablet Take 10 mg by mouth daily. Active clonazePAM (KlonoPIN) 0.5 mg tablet Take 0.75 mg by mouth 2 times a day. Active Social History Tobacco Use Types Packs/Day Years Used Date Smoking Tobacco: Never Smokeless Tobacco: Never Alcohol Use Standard Drinks/Week Comments Not Currently 0 (1 standard drink = 0.6 oz pur e alcohol) Sex and Gender Information Value Date Recorded Sex Assigned at Male 04/14/2024 6:20 PM EST Legal Sex Male 2:14 PM EDT Gender Identity Not on file Sexual Orientation Not on file Last Filed Vital Signs Vital Sign Reading Time Taken Comments Blood Pressure 133/90 04/15/2024 11:39 AM EST Pulse 71 04/15/2024 11:39 AM EST Temperature 36.7 ??C (98.1 ??F) 04/15/2024 9:22 AM ES T Respiratory Rate 16 04/15/2024 11:39 AM EST Oxygen Saturation 98% 04/15/2024 11:39 AM EST Inhaled Oxygen Concentration - - Weight 90.7 kg (200 lb) 04/23/2020 11:06 AM EST Height 180.3 cm (5' 11 ) 04/23/2020 11:06 AM EST Body Mass Index 27.89 04/23/2020 11:06 AM EST Plan of Treatment Health Maintenance Due Date Last Done Comments HIV Screening 1981 Varicella Vaccines (1 of 2 - 13+ 2-dose series) 1994 Pneumococcal Vaccine: Pediat shakeel (0-5 Years) and At-Risk Patients (6-50 Years) (2 of 2 - PCV) 02/16/2006 02/16/2005 COVID-19 Vaccine (1 - season) 2023 Alcohol/Substance Use Screening 03/04/2024 Influenza Vaccine (Season Ended) 2024 02/17/20 05, 12/31/2003 DTaP,Tdap,and Td Vaccines (3 - Td or Tdap) 12/29/2025 12/30/2015, 09/27/1986 RSV Vaccine (60+ years old a nd patients) (1 - 1-dose 75+ series) 2056 Hepatitis B Vaccines Completed 08/06/1997, 03/10/1997, 02/05/1997 Procedures * Due to [place] [employer] law, this organization might not be sharing negative HIV tests. Procedure Name Priority Date/Time Associated Diagnosis Comments RAPID COVID-19 RNA FOR SURVEILLANCE (ED ONLY) STAT 04/14/2024 4:54 PM EST from Last 3 Months Results * Due to [facility] law, this organization might not be sharing negative HIV tests. * Rapid COVID-19 RNA for Surveillance (04/14/2024 4:54 PM EST) PCR, SARS CoV-2 RNA Not Detected Not Detected [facility] GEN[facility]ERT 04/14/2024 6:15 PM EST [facility] Comment:A Not Detected (Nega tive) test result is indicative of the absence of SARS-CoV-2 RNA at the level of LoD (Limit of Detection). A negative result does not rule out the possibility of COVID-19 and should not be used as the sole basis for treatment or patient management decisions. If COVID-19 is still suspected, based on exposure history together with other clinical findings, re-testing should be considered. Swab (Nares) Non-Blood Collection / Unknown 04/14/2024 4:54 PM EST 04/14/2024 5:28 PM EST Narrative [facility] - 04/14/2024 6:15 PM EST This test was developed, validated and its performance characteristics determined by [facility] Clinical Labs. This test has not been cleared or approved by the U.S. Food and Drug Administration (FDA). FDA Policy for Diagnostic Tests for Coronavirus Disease-2019 during the Public Health Emergency issued May 18, 2019, is followed. us Kristina Becker MD LAB BODY FLUIDS AND STOOLS ORDER ANABEL Final Result [facility] [address] [id number], from Last 3 Months Insurance [employer] OUT OF STATE PPO Care Teams Postdoctoral Scientist Relationship Specialty Start Date End Date Ashley Kim PCP - General Internal Medicine 04/23/20
--- OUTSIDE RECORDS SUMMARY | 2024-07-10 18:53 | XMS_ITS | Encounter Summary ---
Author Organization [facility] Address [address] [place] [address] Care Team Providers Care Shredded Filler Cutter Operator Name Role Phone Ashley Kim NP Primary Care Provider [phone] Rachel Chandra MD Primary Care Provider [phone] Encounter Details Date Type Department Care Team (Late st Contact Info) Description 03/13/2017 Orders Only [facility] [address] [place] [address] Billie Gonzales NP [address] [place] [address] Social History Tobacco Use Types Packs/Day Years [...] Anusha Boucher documented as of this encounter Procedures Procedure Name Priority Date/Time Associated Diagnosis Comments STREPTOCOCCUS, GROUP A CULTURE Routine 03/13/2017 2:01 PM EST Sore throat documented in this encounter Results * STREPTOCOCCUS, GROUP A CULTURE (03/13/2017 2:01 PM EST) Culture, Streptococci Group A, Throat SEE NOTE [facility] Comment: ??STREPTOCOCCUS, GROUP A CULTURE ??MICRO NUMBER: ?[id number] ??TEST STATUS: ? FINAL ??SPECIMEN SOURCE: ?? NOT GIVEN ??SPECIMEN QUALITY: ??ADEQUATE ??RESULT: ?No group A Streptococcus isolated 03/13/2017 2:01 PM EST 03/13/2017 4:24 PM EST Narrative Resulting Agency Comment [id number] Billie Gonzales NP LABORATORY Final Result Performing Organization Address City/State/[facility] Co de Phone Number [facility] [address] [place] [address] documented in this encounter Visit Diagnoses Diagnosis Sore throat Acute pharyngitis documented in this encounter Additional [...] documented as of this encounter Care Teams Shredded Filler Cutter Operator Relationship Specialty Start Date End Date Ashley Kim NP PCP - General Internal Medicine 03/13/17 06/17/24 Rachel Chandra MD [address] [place] [address] PCP - General 06/18/24 documented as of this encounter
--- OUTSIDE RECORDS SUMMARY | 2024-07-10 18:53 | XMS_ITS | Encounter Summary ---
Author Organization [facility] Address [address] [place] [address] Phone Care Team Providers Care Internet Merchant Name Role Phone Pcp, None MD Primary Care Provider Unavailabl e Reason for Visit * Reason Comments Alcohol Intoxication Encounter Details Date Type Department Care Team ([facility] Contact Info) Description 07/09/2024 1:30 PM EDT - 07/09/2024 6:15 PM EDT Emergency [facility] [address] [place] [address] Mick Brantley Jr., NP Department of Emergency Medicine [address] [place] [address] [phone] (Work) Daniele Sainz RN Alcohol use disorder, severe, dependence (Primary Dx); Alcohol intoxication Discharge Disposition: Another Health Care Institution Not Defined Social History Tobacco Use Types Packs/Day Years Used Date Smoking Tobacco: Never Assessed Sex and Gender Information Value Date Recorded Sex Assigned at Not on file Gender Identity Not on file Sexual Orientation Not on file documented as of this encounter Last Filed Vital Signs Vital Sign Reading Time Taken Comments Blood Pressure 147/99 07/09/2024 1:46 PM EDT Pulse - - Temperature - - Respiratory Rate 18 07/09/2024 1:46 PM EDT Oxygen Saturation 96% 07/09/2024 1:46 PM EDT Inhaled Oxygen Concentration - - Weight 90.7 kg (200 lb) 07/09/2024 1:46 PM EDT Height 180.3 cm (5' 11 ) 07/09/2024 1:46 PM EDT Body Mass Index 27.89 07/09/2024 1:46 PM EDT documented in this encounter Discharge Instructions * Discharge Instructions* Mick Brantley Jr., PETROLEUM PRODUCTION ENGINEER - 07/09/2024 6:03 PM EDT Please be advised your being discharged to the [facility] residential program. Please continue with treatment if any concerns otherwise feel free to return to the emergency department. * Attachments The following attachments cannot be sent through Care Everywhere. * Alcohol Intoxication [id number] (Lao) * Alcohol Misuse and Dependence Information Adult (Lao) documented in this encounter ED Notes * Matthew Perez RN - 07/09/2024 6:13 PM EDT [facility] arrived for patient, pt discharged with staff. AxOx4 paperwork given tostaff pt belongings returned, ambulated out of ED with staff. No issues, steady gait. * Daniele Sainz RN - 07/09/2024 4:18 PM EDT Pt requesting update regarding transfer. Pt updated. documented in this encounter Miscellaneous Notes * ED Triage Note - Daniele Sainz RN - 07/09/2024 1:29 PM EDT Pt arrives to ED via EMS with c/o ETOH eval. Pt has hx of ETOH abuse and according to GF pt didn't go to rehab today so she called the police. EMS reports pt calm and cooperative. Pt last drink around 7am this morning. Pt reports drinking 1 tall bottles worth. documented in this encounter Plan of Treatment Not on file documented as of this encounter Procedures Procedure Name Priority Date/Time Associated Diagnosis Comments URINE DRUG SCREEN STAT 07/09/2024 2:0 9 PM EDT CBC W/ AUTO DIFF STAT 07/09/2024 2:09 PM EDT ETHANOL STAT 07/09/2024 2:09 PM EDT BASIC METABOLIC PANEL STAT 07/09/2024 2:09 PM EDT documented in this encounter Results * (ABNORMAL) Urine Drug Screen (07/09/2024 2:09 PM EDT) Amphetamine Negative Negative 07/09/2024 2:36 PM EDT [...] as a sendout test. Mick Brantley Jr., PETROLEUM PRODUCTION ENGINEER URINE ORDERA [facility]ES [facility] [address] [place] [address] * (ABNORMAL) Ethanol (07/09/2024 2:09 PM EDT) Ethanol Level 374.2(H) <10.0 mg/dL 07/09/2024 2:50 PM EDT CLINICAL LABORATORY Blood 07/09/2024 2:09 PM EDT 07/09/2024 2:09 PM EDT Mick Brantley Jr., NP LAB BLOOD OR DERABLES [facility] [address] [place] [address] * (ABNORMAL) BMP (07/09/2024 2:09 PM EDT) Sodium 136 136 - 145 mmol/L 07/09/2024 [...] PM EDT Narrative CLINICAL LABORATORY - 07/09/2024 2:50 PM EDT [...] NP LAB BLOOD OR DERABLES [facility] [address] [place] [address] * (ABNORMAL) CBC w/ Differential (07/09/2024 2:09 PM EDT) WBC 3.71 3.50 - 10.50 10*3/uL 07/09/2024 2:15 PM EDT CLINICAL LABORATORY RBC 5.00 4.32 - 5.72 10*6/uL 07/09/2024 2:15 PM EDT CLINICAL LABORATORY Hemoglobin 15.1 13.5 - 17.5 g/dL 07/09/2024 2:15 PM EDT CLINICAL LABORATORY Hematocrit 43.8 38.8 - 50.0 % 07/09/2024 2:15 PM EDT CLINICAL LABORATORY MCV 87.6 81.2 - 95.1 fL 07/09/2024 2:15 PM EDT CLINICAL LABORATORY MCH 30.2 27.5 - 33.2 pg 07/09/2024 2:15 PM EDT CLINICAL LABORATORY MCHC 34.5 33.4 - 35.5 g/dL 07/09/2024 2:15 PM EDT CLINICAL LABORATORY RDW 15.2 11.8 - 15.6 % 07/09/2024 2:15 PM EDT CLINICAL LABORATORY Platelets 126(L) 150 - 450 10*3/uL 07/09/2024 2:15 PM EDT CLINICAL LABORATORY MPV 8.9 7.4 - 11.0 fL 07/09/2024 2:15 PM EDT CLINICAL LABORATORY NRBC 0.0 0.0 - 1.0 /100 WBCs 07/09/2024 2:15 PM EDT CLINICAL LABORATORY Neutrophils (Relative) 52.6 % 07/09/2024 2:15 PM EDT CLINICAL LABORATORY Lymphocytes (Relative) 40.4 % 07/09/2024 2:15 PM EDT CLINICAL LABORATORY Monocytes (Relative) 4.6 % 07/09/2024 2:15 PM EDT CLINICAL LABORATORY Eosinophils (Relative) 0.8 % 07/09/2024 2:15 PM EDT CLINICAL LABORATORY Basophils (Relative) 1.3 % 07/09/2024 2:15 PM EDT CLINICAL LABORATORY Immature Granulocytes (Relative) 0.3 % 07/09/2024 2:15 PM EDT CLINICAL LABORATORY Neutrophils (Absolute) 2.0 1.7 - 7.0 10*3/uL 07/09/2024 2:15 PM EDT CLINICAL LABORATORY Lymphocytes (Absolute) 1.5 0.9 - 2.9 10*3/uL 07/09/2024 2:15 PM EDT CLINICAL LABORATORY Monocytes (Absolute) 0.2(L) 0.3 - [...] 07/09/2024 2:09 PM EDT Mick Brantley Jr., YASMIN LAB BLOOD OR DERABLES Performing Organization Address City/State/[facility] Co de Phone Number CLINICAL LABORATORY [address] [place] [address] documented in this encounter Visit Diagnoses Diagnosis Alcohol use disorder, severe, dependence- Primary Alcohol intoxication Nondependent alcohol abuse, unspecified drinking behavior documented in this encounter Care Teams Internet Merchant Relationship Specialty Start Date End Date Pcp, Roe, PCP - General Internal Medicine 07/02/24 documented as of this encounter
--- OUTSIDE RECORDS SUMMARY | 2024-07-10 18:53 | XMS_ITS | Referral Summary ---
Author Organization [facility] Address [address] [place] [address] Care Team Providers Care Handle Machine Operator Name Role Phone Sarah Kimberly Gladis Primary Care Provider [phone] Allergies No known active allergies Medications * [...] 04/23/2020 11:06 AM EST Plan of Treatment Not on file Procedures * Due to [place] [employer] law, this organization might not be sharing negative HIV tests. Procedure Name Priority Date/Time Associated Diagnosis Comments RAPID COVID-19 RNA FOR SURVEILLANCE (ED ONLY) STAT 04/14/2024 4:54 PM EST from Last 3 Months Results * Due to [place] [employer] law, this organization might not be sharing negative HIV tests. * Rapid COVID-19 RNA for Surveillance (04/14/2024 4:54 PM EST) PCR, SARS CoV-2 RNA Not Detected Not Detected [facility] 04/14/2024 6:15 PM EST [facility] Comment:A Not Detected (Nega [...] PM EST 04/14/2024 5:28 PM EST Narrative [facility] - 04/14/2024 6:15 PM EST This test was developed, validated and its performance characteristics determined by [facility] Clinical Labs. This test has not been cleared or approved by the U.S. Food and Drug Administration (FDA). FDA Policy for Diagnostic Tests for Coronavirus Disease-2019 during the Public Health Emergency issued May 18, 2019, is followed. us Kristina Becker MD LAB BODY FLUIDS AND STOOLS ORDER ANABEL Final Result [facility] [address] [place] [address], [place] from Last 3 Months Insurance [facility] OUT OF STATE PPO Care Teams Handle Machine Operator Relationship Specialty Start Date End Date Ashley Kim PCP - General Internal Medicine 04/23/20
--- OUTSIDE RECORDS SUMMARY | 2024-07-10 18:53 | XMS_ITS | Encounter Summary ---
Author Organization [facility] Address [address] [place] [address] Care Team Providers Care Furnace Installer Helper Name Role Phone Desirae Wells MD Primary Care Provider Unav Ashley Diallo NP Primary Care Provider [phone] Rachel Chandra MD Primary Care Provider [phone] Encounter Details Date Type Department Care Team (Late st Contact Info) Description 07/08/2012 Orders Only [facility] [address] [place] [address] Maranda Escobedo, MANUFACTURING PROCESS ENGINEER [address] [place] [address] Social History Tobacco Use Types Packs/Day Years [...] as of this encounter Progress Notes * Evelyn Willis I, RN - 07/09/2012 4:22 PM EDTQuick Note: Pt returning all to auc. Informed of all labs normal . Pt to f/u w pcp for further discussion. In agreement * Evelyn Willis RN - 07/09/2012 3:17 PM EDTQuick Note: Call to pt at number listed. N/a--left message to return call to auc * Maranda Escobedo MANUFACTURING PROCESS ENGINEER - 07/09/2012 1:37 PM EDTQuick Note: nurse: Please notify pt. All labs were normal. He should follow up with Dr. Wells as discussed. * Maranda Escobedo MANUFACTURING PROCESS ENGINEER - 07/08/2012 5:47 PM EDTQuick Note: Cbc, bmp, trop i noted. documented in this encounter Plan of Treatment Not on file documented as of this encounter Procedures Procedure Name Priority Date/Time Associated Diagnosis Comments CBC INCLUDES DIFFERENTIAL AND PLATELET COUNT STAT (All results called to provider) 07/08/2012 3:59 PM EDT Chest discomfort TROPONIN I (STAT RESULTS NEEDED) STAT (All results called to provider) 07/08/2012 3:59 PM EDT Chest discomfort TSH, 3RD GENERATION Routine 07/08/2012 3 :59 PM EDT Chest discomfort BASIC METABOLIC PANEL WITH (GFR) STAT (All results called to provider) 07/08/2012 3:59 PM EDT Chest discomfort documented in this encounter Results * TROPONIN I (STAT RESULTS NEEDED) (07/08/2012 3:59 PM EDT) Troponin I SEE NOTE < OR = 0.05 ng/mL [facility] Comment: {TROPONIN I {[id number]) TROP RESULT = < 0.04 In accord with published recommendations, serial testing of troponin I at intervals of 2 to 4 hours for up to 12 to 24 hours is suggested in order to corroborate a single troponin I result. An elevated troponin alone is not sufficient to make the diagnosis of ID. 07/08/2012 3:59 PM EDT 07/08/2012 4:10 PM EDT Narrative Resulting Agency Comment [id number] [facility] LAB SAME DAY RESULT Final Result Performing Organization Address [facility] de Phone Number [facility] [address] [place] [address] * TSH, 3RD GENERATION (07/08/2012 3:59 PM EDT) TSH 1.40 0.40 - 4.50 mIU/L [facility] Comment:{TSH {[id number]) 07/08/2012 3:59 PM EDT 07/08/2012 4:10 PM EDT Narrative Resulting Agency Comment [id number] [facility] LABORATORY Final Resu lt Performing Organization Address [facility] de Phone Number [facility] [address] [place] [address] * BASIC METABOLIC PANEL WITH (GFR) (07/08/2012 3:59 PM EDT) Glucose 90 65 - 99 mg/dL [facility] Comment: {GLUCOSE {[id number]) ? Fasting reference interval Urea Nitrogen Blood (BUN) 21 7 - 25 mg/dL [facility] Comment:{UREA NITROGEN (BUN) {[id number]) Creatinine 1.07 0.60 - 1.35 mg/dL [facility] Comment:{CREATININE {[id number]) GFR 92 > OR = 60 mL/min/1. 73m2 [facility] Comment:{eGFR NON-AFR. AMERI CAN {[id number]) GFR () 107 > OR = 60 mL/min/1. 73m2 [facility] Comment:{eGFR AMERIC AN {[id number]) BUN/Creatinine Ratio NOT APPLICABLE 6 - 22 (calc) [facility] Comment:{BUN/CREATININE RATI O {[id number]) Sodium 138 135 - 146 mmol/L [facility] Comment:{SODIUM {[id number]) Potassium 4.1 3.5 - 5.3 mmol/L [facility] Comment:{POTASSIUM {[id number]) Chloride 101 98 - 110 mmol/L [facility] Comment:{CHLORIDE {[id number]) Carbon dioxide 30 19 - 30 mmol/L [facility] Comment:{CARBON DIOXIDE {[id number]) Calcium 10.3 8.6 - 10.3 mg/dL [facility] Comment:{CALCIUM {[id number]) 07/08/2012 3:59 PM EDT 07/08/2012 4:10 PM EDT Narrative [facility] - 07/08/2012 5:05 PM EDT Please note that this estimated GFR does [...] needs for GFR calculation. Resulting Agency Comment [id number] Maranda Ana Luisa Escobedo NP LABORATORY Final Resu lt [facility] [address] [place] [address] * CBC INCLUDES DIFFERENTIAL AND PLATELET COUNT (07/08/2012 3:59 PM EDT) WBC 4.0 3.8 - 10.8 Thousand/u L [facility] Comment:{WHITE BLOOD CELL CO UNT {[id number]) RBC 5.32 4.20 - 5.80 Million/uL [facility] Comment:{RED BLOOD CELL COUN T {[id number]) Hemoglobin 15.5 13.2 - 17.1 g/dL [facility] Comment:{HEMOGLOBIN {[id number]) Hematocrit 46.5 38.5 - 50.0 % [facility] Comment:{HEMATOCRIT {[id number]) MCV 87.3 80.0 - 100.0 fL [facility] Comment:{MCV {[id number]) MCH 29.2 27.0 - 33.0 pg [facility] Comment:{MCH {[id number]) MCHC 33.4 32.0 - 36.0 g/dL [facility] Comment:{MCHC {[id number]) RDW 13.7 11.0 - 15.0 % [facility] Comment:{RDW {[id number]) PLT 176 140 - 400 Thousand/u L [facility] Comment:{PLATELET COUNT {[id number]) MPV 8.5 7.5 - 11.5 fL [facility] Comment:{MPV {[id number]) Neutrophils # 2008 1500 - 7800 cells/uL [facility] Comment:{ABSOLUTE NEUTROPHIL S {[id number]) Lymphocytes # 1624 850 - 3900 cells/uL [facility] Comment:{ABSOLUTE LYMPHOCYTE S {[id number]) Monocytes # 224 200 - 950 cells/uL [facility] Comment:{ABSOLUTE MONOCYTES {[id number]) Eosinophils # 104 15 - 500 cells/uL [facility] Comment:{ABSOLUTE EOSINOPHIL S {[id number]) Basophils # 40 0 - 200 cells/uL [facility] Comment:{ABSOLUTE BASOPHILS {[id number]) Neutrophils % 50.2 % [facility] Comment:{NEUTROPHILS {[id number]) Lymphocytes % 40.6 % [facility] Comment:{LYMPHOCYTES {[id number]) Monocytes % 5.6 % [facility] Comment:{MONOCYTES {[id number]) Eosinophils % 2.6 % [facility] Comment:{EOSINOPHILS {[id number]) Basophils % 1.0 % [facility] Comment:{BASOPHILS {[id number]) 07/08/2012 3:59 PM EDT 07/08/2012 4:10 PM EDT Narrative Resulting Agency Comment [id number] [facility] MANUFACTURING PROCESS ENGINEER LAB SAME DAY RESULT Final Result [facility] [address] [place] [address] documented in this encounter Visit Diagnoses Diagnosis Chest discomfort Other chest pain documented in this encounter Additional Health Concerns [...] documented as of this encounter Care Teams Furnace Installer Helper Relationship Specialty Start Date End Date Desirae Wells MD PCP - General 05/26/05 03/12/17 Ashley Kim NP PCP - General Internal Medicine 03/13/17 06/17/24 Rachel Chandra MD [address] [place] [address] PCP - General 06/18/24 documented as of this encounter
--- OUTSIDE RECORDS SUMMARY | 2024-07-10 18:53 | XMS_ITS | Encounter Summary ---
Author Organization [facility] Address [address] [place] [address] Care Team Providers Care Technical Sme Name Role Phone Desirae Wells MD Primary Care Provider Unav Ashley Diallo NP Primary Care Provider [phone] Rachel Chandra MD Primary Care Provider [phone] Encounter Details Date Type Department Care Team (Late st Contact Info) Description 10/25/2012 Orders Only [facility] [address] [place] [address] Maranda Escobedo, SPEEDOMETER MECHANIC [address] [facility] [address] [place] [address] Social History Tobacco Use Types Packs/Day Years [...] Diagnosis Comments STREPTOCOCCUS, GROUP A CULTURE Routine 10/25/2012 9:29 AM EDT Sore throat documented in this encounter Results * STREPTOCOCCUS, GROUP A CULTURE (10/25/2012 9:29 AM EDT) Culture, Streptococci Group A, Throat SEE NOTE [facility] Comment: {STREPTOCOCCUS, GROUP A CULTURE {[id number]) ??STREPTOCOCCUS, GROUP A CULTURE ??MICRO NUMBER: ?[id number] ??TEST STATUS: ? FINAL ??SPECIMEN SOURCE: ?? THROAT ??SPECIMEN QUALITY: ??ADEQUATE ??RESULT: ?No beta hemolytic Streptococci isolated 10/25/2012 9:29 AM EDT 10/26/2012 4:53 AM EDT Narrative Resulting Agency Comment [id number] Vikas Orosco MD LABORATORY Final Result Performing Organization Address City/State/[facility] de Phone Number [facility] [address] [place] [address] documented in this encounter Visit Diagnoses Diagnosis [...] as of this encounter Care Teams Technical Sme Relationship Specialty Start Date End Date Desirae Wells MD PCP - General 05/26/05 03/12/17 Ashley Kim NP PCP - General Internal Medicine 03/13/17 06/17/24 Rachel Chandra MD [address] [place] [address] PCP - General 06/18/24 documented as of this encounter
--- OUTSIDE RECORDS SUMMARY | 2024-07-10 18:54 | XMS_ITS | Encounter Summary ---
Author Organization [facility] Address [address] [place] [address] Care Team Providers Care Wireless Watcher Name Role Phone Desirae Wells MD Primary Care Provider Unav Ashley Diallo NP Primary Care Provider [phone] Rachel Chandra MD Primary Care Provider [phone] Encounter Details Date Type Department Care Team (Late st Contact Info) Description 06/10/2013 Orders Only [facility] [address] [place] [phone] Desirae Wells MD Social History Tobacco Use [...] documented as of this encounter Results * BORRELIA BURGDORFERI AB(LYME)(IGG,IGM), WESTERN BLOT (06/11/2013 8:07 AM EDT) Borrelia burgdorferi Ab.IgG NEGATIVE NEGATIVE [facility] Comment:{LYME DISEASE AB(IGG ),BLOT {[id number]) Borrelia burgdorferi 18kD Ab.IgG NON-REACTIVE [facility] Comment:{18 KD (IGG) BAND {Q [id number]) Borrelia burgdorferi 23kD Ab.IgG NON-REACTIVE [facility] Comment:{23 KD (IGG) BAND {Q [id number]) Borrelia burgdorferi 28kD Ab.IgG NON-REACTIVE [facility] Comment:{28 KD (IGG) BAND {Q [id number]) Borrelia burgdorferi 30kD Ab.IgG NON-REACTIVE [facility] Comment:{30 KD (IGG) BAND {Q [id number]) Borrelia burgdorferi 39kD Ab.IgG NON-REACTIVE [facility] Comment:{39 KD (IGG) BAND {Q [id number]) Borrelia burgdorferi 41kD Ab.IgG NON-REACTIVE [facility] Comment:{41 KD (IGG) BAND {Q [id number]) Borrelia burgdorferi 45kD Ab.IgG NON-REACTIVE [facility] Comment:{45 KD (IGG) BAND {Q [id number]) Borrelia burgdorferi 58kD Ab.IgG NON-REACTIVE [facility] Comment:{58 KD (IGG) BAND {Q [id number]) Borrelia burgdorferi 66kD Ab.IgG NON-REACTIVE [facility] Comment:{66 KD (IGG) BAND {Q [id number]) Borrelia burgdorferi 93kD Ab.IgG NON-REACTIVE [facility] Comment:{93 KD (IGG) BAND {Q [id number]) Borrelia burgdorferi Ab.IgM NEGATIVE NEGATIVE [facility] Comment:{LYME DISEASE AB(IGM ),BLOT {[id number]) Borrelia burgdorferi 23kD Ab.IgM NON-REACTIVE [facility] Comment:{23 KD (IGM) BAND {Q [id number]) Borrelia burgdorferi 39kD Ab.IgM NON-REACTIVE [facility] Comment:{39 KD (IGM) BAND {Q [id number]) Borrelia burgdorferi 41kD Ab.IgM NON-REACTIVE [facility] Comment: {41 KD (IGM) BAND {[id number]) As per CDC criteria, a Lyme disease IgG Immunoblot must show reactivity to at least 5 of 10 specific borrelial proteins to be considered positive; similarly, a positive Lyme disease IgM immunoblot requires reactivity to 2 of 3 specific borrelial proteins. Although considered negative, IgG reactivity to fewer specific borrelial proteins or IgM reactivity to only 1 protein may indicate recent B. burgdorferi infection and warrant testing of a later sample. A positive IgM but negative IgG result obtained more than a month after onset of symptoms likely represents a false- positive IgM result rather than acute Lyme disease. In rare instances, Lyme disease immunoblot reactivity may represent antibodies induced by exposure to other spirochetes. 06/11/2013 8:07 AM EDT 06/11/2013 3:25 PM EDT Narrative Resulting Agency Comment [id number] S Shirlene Wells MD LABORATORY Final Resul t [facility] [address] [place] [address] documented in this encounter Visit Diagnoses Diagnosis Shaky- Primary Abnormal involuntary movements documented in this encounter Additional Health Concerns [...] documented as of this encounter Care Teams Wireless Watcher Relationship Specialty Start Date End Date Desirae Wells MD PCP - General 05/26/05 03/12/17 Ashley Kim NP PCP - General Internal Medicine 03/13/17 06/17/24 Rachel Chandra MD [address] [place] [address] PCP - General 06/18/24 documented as of this encounter
--- OUTSIDE RECORDS SUMMARY | 2024-07-10 18:54 | XMS_ITS | Encounter Summary ---
Author Organization [facility] Address [address] [place] [address] Care Team Providers Care Credit Portfolio Manager Name Role Phone Ashley Kim NP Primary Care Provider Rachel Chandra MD Primary Care Provider [phone] Encounter Details Date Type Department Care Team (Late st Contact Info) Description 05/22/2018 Orders Only [facility] [address] [place] [phone] Ashley Kim NP [address] [place] [address] Social History Tobacco Use Types Packs/Day Years [...] as of this encounter Progress Notes * Ashley Kim NP - 05/23/2018 9:19 AM EDT Result note sent to patient via [employer] 05-23-2018 documented in this encounter Plan of Treatment Not on file documented as of this encounter Goals Goal Patient Goal Type Associated Problems Recent Progress Patient-Stated? Author Blood Pressure < 140/90 Blood Pressure 129/87(2021 10:51 AM EDT) No Anusha Boucher documented as of this encounter Procedures Procedure Name Priority Date/Time Associated Diagnosis Comments HEPATIC FUNCTION PANEL (ALT,AST,ALK PH,BILI'S,TP,ALB) Routine 05/22/2018 10:55 AM EDT Alcohol abuse Elevated LFTs HEPATITIS PANEL, ACUTE W/REFLEX Routine 05/22/2018 10:55 AM EDT Alcohol abuse Elevated LFTs LIPID PANEL WITH REFLEX TO DIRECT LDL Routine 05/22/2018 10:55 AM EDT Mixed hyperlipidemia BASIC METABOLIC PANEL WITH (GFR) Routine 05/22/2018 10:55 AM EDT Hypertension documented in this encounter Results * (ABNORMAL) LIPID PANEL WITH REFLEX TO [...] factors. LDL-C is now calculated using the Bryce-Marnie calculation, which is a validated novel method providing better accuracy than the Friedewald equation in the estimation of LDL-C. Bryce SS et al. JULIENNE. 2013;310(19): 5705-6786 (http://education.Joinnus/faq/TLQ375) CHOL/HDL Ratio 3.6 <5.0 (calc) [facility] Cholesterol Non-HDL 117 <130 mg/dL (calc) [facility] Comment: For patients with diabetes plus 1 major ASCVD risk factor, treating to a non-HDL-C goal of <100 mg/dL (LDL-C of <70 mg/dL) is considered a therapeutic option. 05/22/2018 10:5 5 AM EDT 05/22/2018 5:08 PM EDT Narrative Resulting Agency Comment [id number] Ashley Kim NP LABORATORY Final Result Performing Organization Address [facility] de Phone Number [facility] [address] [place] [address] * BASIC METABOLIC PANEL WITH (GFR) (05/22/2018 10:55 AM EDT) [facility] Glucose 90 65 - 99 mg/dL [facility] Comment:Fasting reference in terval Urea Nitrogen Blood (BUN) 21 7 - 25 mg/dL [facility] Creatinine 1.02 0.60 - 1.35 mg/dL [facility] EGFR 94 > OR = 60 mL/min/1. 73m2 [facility] GFR () 109 > OR = 60 mL/min/1. 73m2 [facility] BUN/Creatinine Ratio NOT APPLICABLE 6 - 22 (calc) [facility] Sodium 142 135 - 146 mmol/L [facility] Potassium 4.6 3.5 - 5.3 mmol/L [facility] Chloride 103 98 - 110 mmol/L [facility] Carbon dioxide 25 20 - 32 mmol/L [facility] Calcium 9.8 8.6 - 10.3 mg/dL [facility] 05/22/2018 10:5 5 AM EDT 05/22/2018 5:08 PM EDT Narrative [facility] - 05/22/2018 8:53 PM EDT Please note that this estimated [...] needs for GFR calculation. Resulting Agency Comment [id number] Ashley Kim NP LABORATORY Final Result Performing Organization Address [facility] de Phone Number [facility] [address] [place] [phone] * HEPATIC FUNCTION PANEL (ALT,AST,ALK PH,BILI'S,TP,ALB) (05/22/2018 10:55 AM EDT) Protein Total (Serum) 7.3 6.1 - 8.1 g/dL [facility] Albumin 4.9 3.6 - 5.1 g/dL [facility] Globulin 2.4 1.9 - 3.7 g/dL (calc) [facility] Albumin/Globulin 2.0 1.0 - 2.5 (calc) [facility] Bilirubin Total 0.8 0.2 - 1.2 mg/dL [facility] Bilirubin Direct 0.2 < OR = 0.2 mg/dL [facility] Bilirubin Indirect 0.6 0.2 - 1.2 mg/dL (calc) [facility] Alkaline phosphatase 60 40 - 115 U/L [facility] AST (SGOT) 26 10 - 40 U/L [facility] ALT (SGPT) 30 9 - 46 U/L [facility] 05/22/2018 10:5 5 AM EDT 05/22/2018 5:08 PM EDT Narrative Resulting Agency Comment [id number] Ashley Kim NP LABORATORY Final Result [facility] [address] [place] [address] * HEPATITIS PANEL, ACUTE W/REFLEX (05/22/2018 10:55 AM EDT) Pathologist [facility] Hepatitis A virus Ab.IgM NON-REACT MATILDE NON-REACT [...] a test for HCV RNA (test code 05046) is suggested. For additional information please refer to http://education.Glasses Direct/faq/APK30a1 (This link is being provided for informational/ educational purposes only.) 05/22/2018 10:5 5 AM EDT 05/22/2018 5:08 PM EDT Narrative Resulting Agency Comment [id number] Ashley Kim POKE IN LABORATORY Final Result [facility] [address] [place] [address] documented in this encounter Visit Diagnoses Diagnosis Alcohol abuse Alcohol abuse, unspecified Elevated LFTs Other abnormal blood chemistry Hypertension Essential hypertension, benign Mixed hyperlipidemia documented in this encounter Additional Health Concerns [...] documented as of this encounter Care Teams Credit Portfolio Manager Relationship Specialty Start Date End Date Ashley Kim NP PCP - General Internal Medicine 03/13/17 06/17/24 Rachel Chandra MD [address] [place] [address] PCP - General 06/18/24 documented as of this encounter
--- OUTSIDE RECORDS SUMMARY | 2024-07-10 18:54 | XMS_ITS | Encounter Summary ---
Author Organization [facility] Address [address] [place] [address] Care Team Providers Care Carbide Grinder Name Role Phone Ashley Kim NP Primary Care Provider [phone] Rachel Chandra MD Primary Care Provider [phone] Reason for Visit * Reason Comments E-prescribing Refill Request Encounter Details Date Type Department Care Team (Late st Contact Info) Description 03/09/2018 Refill [facility] [address] [place] [phone] Ashley Kim NP [address] [place] [address] E-prescribing Refill Request Social History Tobacco Use [...] encounter Miscellaneous Notes * Telephone Encounter - William Buck MA - 03/10/2018 8:07 AM EST Any special requests or concerns? none Faxed/E-prescribed medication renewal request(s) for Isaiah Torrez 37 y.o. male received from pharmacy. Verified and Confirmed pharmacy for patient. Last CPE with this specialty: 04/29/2017 Last OV with this specialty: 02/14/2018 Next OV: Future Appointments Date Time Provider Department Phone 03/11/18 3:45 PM Ashley Kim NP [facility] [phone] Pertinent lab results: No labs suggested for any medication orders signed or pended in this encounter. Refresh if any orders changed. Allergies: Review of patient's allergies indicates no known allergies. BP Readings from Last 1 Encounters: 02/14/18 124/79 Patient Active Problem List Diagnosis Date Noted ??? Visual disturbance 04/22/2017 ??? Lightheadedness 03/27/2017 ??? Dizziness 03/27/2017 ??? Hyperlipidemia 06/17/2013 ??? Gambling problem 02/20/2013 [...] heart disease ??? Asthma 05/07/2006 01/15/2003 Francesca LOBO M.D. , ??? Depressive disorder 04/02/2003 04/02/2003 Francesca LOBO M.D. Current Outpatient Prescriptions on File Prior to Visit Medication Sig Dispense Refill ??? AmLODIPine Besylate 5 MG Tab TAKE 1 TABLET BY MOUTH EVERY DAY 30 Tab 0 ??? Doxycycline Monohydrate 100 MG Cap 1 by mouth twice a day for 10 days 20 Cap 0 ??? LEXAPRO 20 MG Tab TAKE 1 TABLET BY MOUTH DAILY - No subsititutions 30 Tab 0 ??? Mometasone Furoate (NASONEX) 50 MCG/ACT Suspension 2 sprays each nostril daily 1 Inhaler 1 ??? RaNITidine HCl 75 MG Tab 1 TABLET 1 TO 2 TIMES A DAY NEEDED ??? ALBUTEROL SULFATE (PROAIR HFA) 108 (90 BASE) MCG/ACT Aero Soln inhale 2 puffs by mouth every 4 hours if needed FOR SHORTNESS OF BREATH/WHEEZE 17 g 5 ??? OGC-NGR-Eytrrnhv O10-Cyicnpv E (CO Q-10 VITAMIN E FISH OIL) 73-75-12-200 Cap 1 CAPSULES DAILY ??? B Complex [...] 140/90 Blood Pressure 129/87(2021 10:51 AM EDT) Anusha Vance documented as of this encounter Visit Diagnoses Diagnosis Panic disorder Panic disorder without agoraphobia Panic attacks Panic disorder without agoraphobia documented in this [...] documented as of this encounter Care Teams Carbide Grinder Relationship Specialty Start Date End Date Ashley Kim NP PCP - General Internal Medicine 03/13/17 06/17/24 Rachel Chandra MD [address] [place] [address] PCP - General 06/18/24 documented as of this encounter
--- OUTSIDE RECORDS SUMMARY | 2024-07-10 18:54 | XMS_ITS | Encounter Summary ---
Author Organization [facility] Address [address] [place] [address] Care Team Providers Care Chair And Couch Maker Name Role Phone Desirae Wells MD Primary Care Provider Unav Ashley Diallo NP Primary Care Provider [phone] Rachel Chandra MD Primary Care Provider [phone] Encounter Details Date Type Department Care Team (Late st Contact Info) Description 06/11/2013 Orders Only [facility] [address] [place] [id number] Desirae Wells MD Social History Tobacco Use [...] Procedure Name Priority Date/Time Associated Diagnosis Comments BORRELIA BURGDORFERI AB(LYME)(IGG,IGM), WESTERN BLOT Routine 06/11/2013 8:07 AM EDT Shaky CBC INCLUDES DIFFERENTIAL AND PLATELET COUNT Routine 06/11/2013 8:07 AM EDT Gastroesophageal reflux disease THYROID STIMULATING HORMONE (TSH) WITH FREE T4 REFLEX, SERUM Routine 06/11/2013 8:07 AM EDT Tremor VITAMIN B12 (CYANOCOBALAMIN), SERUM Routine 06/11/2013 8:07 AM EDT Gastroesophageal reflux disease VITAMIN D, 25-HYDROXY, TOTAL, IMMUNOASSAY Routine 06/11/2013 8:07 AM EDT Vitamin D Deficiency HEPATIC FUNCTION PANEL (ALT,AST,ALK PH,BILI'S,TP,ALB) Routine 06/11/2013 8:07 AM EDT Alcohol abuse, episodic LIPID PANEL WITH REFLEX TO DIRECT LDL Routine 06/11/2013 8:07 AM EDT Hyperlipidemia BASIC METABOLIC PANEL WITH (GFR) Routine 06/11/2013 8:07 AM EDT Hypertension documented in this encounter Results * BORRELIA BURGDORFERI AB(LYME)(IGG,IGM), WESTERN BLOT (06/11/2013 8:07 AM EDT) Borrelia burgdorferi Ab.IgG NEGATIVE NEGATIVE [facility] Comment:{LYME DISEASE AB(IGG ),BLOT {[id number]) Borrelia burgdorferi 18kD Ab.IgG NON-REACTIVE [facility] Comment:{18 KD (IGG) BAND {[id number]) Borrelia burgdorferi 23kD Ab.IgG NON-REACTIVE [facility] Comment:{23 KD (IGG) BAND {[id number]) Borrelia burgdorferi 28kD Ab.IgG NON-REACTIVE [facility] Comment:{28 KD (IGG) BAND {[id number]) Borrelia burgdorferi 30kD Ab.IgG NON-REACTIVE [facility] Comment:{30 KD (IGG) BAND {[id number]) Borrelia burgdorferi 39kD Ab.IgG NON-REACTIVE [facility] Comment:{39 KD (IGG) BAND {[id number]) Borrelia burgdorferi 41kD Ab.IgG NON-REACTIVE [facility] Comment:{41 KD (IGG) BAND {[id number]) Borrelia burgdorferi 45kD Ab.IgG NON-REACTIVE [facility] Comment:{45 KD (IGG) BAND {[id number]) Borrelia burgdorferi 58kD Ab.IgG NON-REACTIVE [facility] Comment:{58 KD (IGG) BAND {[id number]) Borrelia burgdorferi 66kD Ab.IgG NON-REACTIVE [facility] Comment:{66 KD (IGG) BAND {[id number]) Borrelia burgdorferi 93kD Ab.IgG NON-REACTIVE [facility] Comment:{93 KD (IGG) BAND {[id number]) Borrelia burgdorferi Ab.IgM NEGATIVE NEGATIVE [facility] Comment:{LYME DISEASE AB(IGM ),BLOT {[id number]) Borrelia burgdorferi 23kD Ab.IgM NON-REACTIVE [facility] Comment:{23 KD (IGM) BAND {[id number]) Borrelia burgdorferi 39kD Ab.IgM NON-REACTIVE [facility] Comment:{39 KD (IGM) BAND {[id number]) Borrelia burgdorferi 41kD Ab.IgM NON-REACTIVE [facility] Comment: {41 KD (IGM) BAND {[id number]) As per CDC criteria, a Lyme disease [...] 3:25 PM EDT Narrative Resulting Agency Comment [id number] us S Shirlene Wells MD LABORATORY Final Resul t [facility] [address] [place] [address] * THYROID STIMULATING HORMONE (TSH) WITH FREE T4 REFLEX, SERUM (06/11/2013 8:07 AM EDT) TSH 1.04 0.40 - 4.50 mIU/L [facility] Comment:{TSH W/REFLEX TO FT4 {[id number]) 06/11/2013 8:07 AM EDT 06/11/2013 3:25 PM EDT Narrative Resulting Agency Comment [id number] us S Shirlene Wells MD LABORATORY Final Resul t [facility] [address] [place] [address] * (ABNORMAL) HEPATIC FUNCTION PANEL (06/11/2013 8:07 AM EDT) Protein Total (Serum) 7.4 6.1 - 8.1 g/dL [facility] Comment:{PROTEIN, TOTAL {[id number]) Albumin 4.8 3.6 - 5.1 g/dL [facility] Comment:{ALBUMIN {[id number]) Globulin 2.6 1.9 - 3.7 g/dL (calc) [facility] Comment:{GLOBULIN {[id number]) Albumin/Globulin 1.8 1.0 - 2.5 (calc) [facility] Comment:{ALBUMIN/GLOBULIN RA ORA {[id number]) Bilirubin Total 0.9 0.2 - 1.2 mg/dL [facility] Comment:{BILIRUBIN, TOTAL {[id number]) Bilirubin Direct 0.2 < OR = 0.2 mg/dL [facility] Comment:{BILIRUBIN, DIRECT { [id number]) Bilirubin Indirect 0.7 0.2 - 1.2 mg/dL (calc) [facility] Comment:{BILIRUBIN, INDIRECT {[id number]) Alkaline phosphatase 55 40 - 115 U/L [facility] Comment:{ALKALINE PHOSPHATAS E {[id number]) AST (SGOT) 36 10 - 40 U/L [facility] Comment:{AST {[id number]) ALT (SGPT) 50(H) 9 - 46 U/L [facility] Comment:{ALT {[id number]) 06/11/2013 8:07 AM EDT 06/11/2013 3:25 PM EDT Narrative Resulting Agency Comment [id number] S Shirlene Wells MD LABORATORY Final Resul t Performing Organization Address [facility] de Phone Number [facility] [address] [place] [address] * (ABNORMAL) LIPID PANEL WITH REFLEX TO DIRECT LDL (06/11/2013 8:07 AM EDT) Cholesterol 244(H) 125 - 200 mg/dL [facility] Comment:{CHOLESTEROL, TOTAL {[id number]) HDL Cholesterol 48 > OR = 40 mg/dL [facility] Comment:{HDL CHOLESTEROL {[id number]) Triglyceride 89 <150 mg/dL [facility] Comment:{TRIGLYCERIDES {[id number]) LDL Cholesterol 178(H) <130 mg/dL (calc) [facility] Comment: {LDL-CHOLESTEROL {[id number]) Desirable range <100 mg/dL for patients with CHD or diabetes and <70 mg/dL for diabetic patients with known heart disease. CHOL/HDL Ratio 5.1(H) < OR = 5.0 (calc) [facility] Comment:{CHOL/HDLC RATIO {[id number]) Cholesterol Non-HDL 196(H) mg/dL (calc) [facility] Comment: {NON HDL CHOLESTEROL {[id number]) Target for non-HDL cholesterol is 30 mg/dL higher than LDL cholesterol target. 06/11/2013 8:07 AM EDT 06/11/2013 3:25 PM EDT Narrative Resulting Agency Comment [id number] S Shirlene Wells MD LABORATORY Final Resul t Performing Organization Address [facility] Co de Phone Number [facility] [address] [place] [address] * BASIC METABOLIC PANEL WITH (GFR) (06/11/2013 8:07 AM EDT) Glucose 92 65 - 99 mg/dL [facility] Comment: {GLUCOSE {[id number]) ? Fasting reference interval Urea Nitrogen Blood (BUN) 18 7 - 25 mg/dL [facility] Comment:{UREA NITROGEN (BUN) {[id number]) Creatinine 1.13 0.60 - 1.35 mg/dL [facility] Comment:{CREATININE {[id number]) GFR 86 > OR = 60 mL/min/1. 73m2 [facility] Comment:{eGFR NON-AFR. AMERI CAN {[id number]) GFR () 99 > OR = 60 mL/min/1. 73m2 [facility] Comment:{eGFR AMERIC AN {[id number]) BUN/Creatinine Ratio NOT APPLICABLE (calc) [facility] Comment:{BUN/CREATININE RATI O {[id number]) Sodium 139 135 - 146 mmol/L [facility] Comment:{SODIUM {[id number]) Potassium 4.4 3.5 - 5.3 mmol/L [facility] Comment:{POTASSIUM {[id number]) Chloride 103 98 - 110 mmol/L [facility] Comment:{CHLORIDE {[id number]) Carbon dioxide 25 19 - 30 mmol/L [facility] Comment:{CARBON DIOXIDE {[id number]) Calcium 9.6 8.6 - 10.3 mg/dL [facility] Comment:{CALCIUM {[id number]) 06/11/2013 8:07 AM EDT 06/11/2013 3:25 PM EDT Narrative [facility] - 06/11/2013 7:26 PM EDT Please note that this estimated [...] needs for GFR calculation. Resulting Agency Comment [id number] us S Shirlene Wells MD LABORATORY Final Resul t [facility] [address] [place] [address] * (ABNORMAL) VITAMIN D, 25-HYDROXY, LC/MS/MS (06/11/2013 8:07 AM EDT) Pathologist [facility] Vitamin D, 25-OH, Total 26(L) 30 - 100 ng/mL [facility] Comment:{VITAMIN D, 25 OH, T OTAL {[id number]) Vitamin D, D3 (Cholecalciferol ) 26 ng/mL [facility] Comment:{VITAMIN D, 25 OH, D 3 {[id number]) Vitamin D, 25-OH, D2 (Calciferol) <4 ng/mL [facility] Comment: {VITAMIN D, 25 OH, D2 {[id number]) ? 25-OHD3 indicates both endogenous production and ? supplementation. 25-OHD2 is an indicator of exogenous ? sources such as diet or supplementation. Therapy is based on ? measurement of Total 25-OHD, with levels <20 ng/mL indicative ? of Vitamin D deficiency, while levels between 20 ng/mL and ? 30 ng/mL suggest insufficiency. Optimal levels are ? > or = 30 ng/mL. 06/11/2013 8:07 AM EDT 06/11/2013 3:25 PM EDT Narrative Resulting Agency Comment [id number] us S Shirlene Wells MD LABORATORY Final Resul t Performing Organization Address [facility]/ZIP Co de Phone Number [facility] [address] [place] [address] * (ABNORMAL) CBC INCLUDES DIFFERENTIAL AND PLATELET COUNT (06/11/2013 8:07 AM EDT) Pathologist [facility] WBC 3.7(L) 3.8 - 10.8 Thousand/u L [facility] Comment:{WHITE BLOOD CELL CO UNT {[id number]) RBC 5.30 4.20 - 5.80 Million/uL [facility] Comment:{RED BLOOD CELL COUN T {[id number]) Hemoglobin 15.8 13.2 - 17.1 g/dL [facility] Comment:{HEMOGLOBIN {[id number]) Hematocrit 46.7 38.5 - 50.0 % [facility] Comment:{HEMATOCRIT {[id number]) MCV 88.2 80.0 - 100.0 fL [facility] Comment:{MCV {[id number]) MCH 29.8 27.0 - 33.0 pg [facility] Comment:{MCH {[id number]) MCHC 33.7 32.0 - 36.0 g/dL [facility] Comment:{MCHC {[id number]) RDW 13.7 11.0 - 15.0 % [facility] Comment:{RDW {[id number]) PLT 198 140 - 400 Thousand/u L [facility] Comment:{PLATELET COUNT {[id number]) MPV 9.1 7.5 - 11.5 fL [facility] Comment:{MPV {[id number]) Neutrophils # 1680 1500 - 7800 cells/uL [facility] Comment:{ABSOLUTE NEUTROPHIL S {[id number]) Lymphocytes # 1691 850 - 3900 cells/uL [facility] Comment:{ABSOLUTE LYMPHOCYTE S {[id number]) Monocytes # 237 200 - 950 cells/uL [facility] Comment:{ABSOLUTE MONOCYTES {[id number]) Eosinophils # 78 15 - 500 cells/uL [facility] Comment:{ABSOLUTE EOSINOPHIL S {[id number]) Basophils # 15 0 - 200 cells/uL [facility] Comment:{ABSOLUTE BASOPHILS {[id number]) Neutrophils % 45.4 % [facility] Comment:{NEUTROPHILS {[id number]) Lymphocytes % 45.7 % [facility] Comment:{LYMPHOCYTES {[id number]) Monocytes % 6.4 % [facility] Comment:{MONOCYTES {[id number]) Eosinophils % 2.1 % [facility] Comment:{EOSINOPHILS {[id number]) Basophils % 0.4 % [facility] Comment:{BASOPHILS {[id number]) 06/11/2013 8:07 AM EDT 06/11/2013 3:25 PM EDT Narrative Resulting Agency Comment [id number] S Shirlene Wells MD LAB SAME DAY RESULT Final R esult Performing Organization Address [facility] Co de Phone Number [facility] [address] [place] [address] * VITAMIN B12 (CYANOCOBALAMIN), SERUM (06/11/2013 8:07 AM EDT) Vitamin B12 (Cobalamins) 482 200 - 1100 pg/mL [facility] Comment:{VITAMIN B12 {[id number]) 06/11/2013 8:07 AM EDT 06/11/2013 3:25 PM EDT Narrative Resulting Agency Comment [id number] us S Shirlene Wells MD LABORATORY Final Resul t Performing Organization Address [facility] Co de Phone Number [facility] [address] [place] [address] documented in this encounter Visit Diagnoses Diagnosis Gastroesophageal reflux disease Esophageal reflux Vitamin D deficiency Unspecified vitamin D deficiency Hypertension Unspecified essential hypertension Hyperlipidemia Other and unspecified hyperlipidemia Alcohol abuse, episodic Nondependent alcohol abuse, episodic drinking behavior Tremor Abnormal involuntary movements Shaky Abnormal involuntary movements documented in this encounter [...] documented as of this encounter Care Teams Chair And Couch Maker Relationship Specialty Start Date End Date Desirae Wells MD PCP - General 05/26/05 03/12/17 Ashley Kim NP PCP - General Internal Medicine 03/13/17 06/17/24 Rachel Chandra MD [address] [place] [address] PCP - General 06/18/24 documented as of this encounter
--- OUTSIDE RECORDS SUMMARY | 2024-07-10 18:54 | XMS_ITS | Clinical Summary ---
Author Organization [facility] Address [address] [place] [address] Phone Care Team Providers Care Mixer Dry Food Products Name Role Phone Pcp, Not Required Primary Care Provider Ashley Lowe FINANCE BROKER Unavailable [phone] Allergies No known active allergies Medications Medication Sig Dispensed Refills Start Date End Date Status ESCITALOPRAM OXALATE (LEXAPRO ORAL) Take by mouth. Active ALPRAZOLAM ORAL Take by mouth. Activ e LISINOPRIL ORAL Take 10 mg by mouth. Active Family History Medical History Relation Comments Cardiovascular disease Father Hypertension Father Cardiovascular disease Maternal Grandfather Hypertension Maternal Grandfather Cardiovascular disease Maternal Uncle Hypertension Maternal Uncle Cardiovascular disease Paternal Grandfather Cancer Paternal Grandmother Relation Status Comments Father Maternal Grandfather Maternal Uncle Paternal Grandfather Paternal Grandmother Social History Tobacco Use Types Packs/Day Years Used Date Smoking Tobacco: Never Education Answer Date Recorded Are you interested in more education? Not on gabriele e 12/22/2023 Are you concerned about learning? Not on file 12/22/2023 No 12/22/2023 No 12/22/2023 Digital Access Answer Date Recorded No 12/22/2023 No 12/22/2023 Reliable internet access at home? Not on file 12/22/2023 Device with a working camera? Not on file Intimate Partner Violence Answer Date R ecorded Are you denied basic needs s uch as food, clothing, or medical care? No 12/22/2023 In the past 12 months have y ou been in a relationship with a person who hurts, threatens, or tries to control you? No 12/22/2023 Are you denied basic needs s uch as food, clothing, or medical care? No 12/22/2023 In the past 12 months have y ou been in a relationship with a person who hurts, threatens, or tries to control you? No 12/22/2023 Sex and Gender Information Value Date Recorded Sex Assigned at Not on file Gender Identity Not on file Sexual Orientation Not on file Last Filed Vital Signs Vital Sign Reading Time Taken Comments Blood Pressure 128/68 12/23/2023 1:31 AM EDT Pulse 78 12/23/2023 1:31 AM EDT Temperature 36.2 ??C (97.2 ??F) 12/23/2023 1:31 AM ED T Respiratory Rate 18 12/23/2023 1:31 AM EDT Oxygen Saturation 98% 12/23/2023 1:31 AM EDT Inhaled Oxygen Concentration - - Weight - - Height - - Body Mass Index - - Plan of Treatment Health Maintenance Due Date Last Done Comments LIPID PANEL 1980 DEPRESSION SCREENING 1993 HEPATITIS C SCREENING 05/25/1999 HIV ONE-TIME SCREENING (18-6 5 YEARS) 05/25/1999 SMOKING STATUS SCREENING (On ce After 26 Yrs) 05/25/2007 COVID-19 VACCINE (2023-2 5 season) 2023 CREATININE LEVEL 12/21/2024 12/22/2023 POTASSIUM LEVEL 12/21/2024 12/22/2023 Adult Td,Tdap Booster 12/29/2025 12/30/2015 HEPATITIS A VACCINES Aged Out No long er eligible based on patient's age to complete this topic HIB VACCINES Aged Out No longer eligi ble based on patient's age to complete this topic MENINGOCOCCAL VACCINES (ACWY) Aged Out No longer eligible based on patient's age to complete this topic PNEUMOCOCCAL VACCINES (0-49 years) Aged Out No longer eligible based on patient's age to complete this topic Medical Devices Not on file Procedures Procedure Name Priority Date/Time Associated Diagnosis Comments BASIC METABOLIC PANEL STAT 12/22/2023 11:47 PM EDT from Last 3 Months or Most Recently Relevant to Health Maintenance Results * (ABNORMAL) Basic metabolic panel (12/22/2023 11:47 PM EDT) SODIUM 142 136 - 145 mmol/L [facility] CHLORIDE 104 95 - 106 mmol/L [facility] POTASSIUM 4.6 3.5 - 5.2 mmol/L [facility] Comment:INTERPRET WITH CAUTI ON, SPECIMEN HEMOLYZED CO2 25 20 - 31 mmol/L [facility] BUN 16 9 - 23 mg/dL [facility] CREATININE 0.88 0.50 - 1.30 mg/dL [facility] GLUCOSE 118(H) 74 - 106 mg/dL [facility] CALCIUM 8.7 8.7 - 10.4 mg/dL [facility] EGFR 110 >60 mL/min/1.7 3m2 [facility] Comment:Estimated glomerular filtration rate calculated using the CKD-EPI refit equation. ANION GAP 13 3 - 17 mmol/L [facility] Blood 12/22/2023 11:4 7 PM EDT 12/22/2023 11:52 PM EDT Alexa Rodriguez PA-C LAB BLOOD ORDERAB LES [facility] [address] [place] [address] from Last 3 Months or Most Recently Relevant to Health Maintenance Unit [address] [place] [address] Isaiah Torrez Personal/Famil y Self [address] [place] [address] [place] [address] Isaiah Torrez Personal/Famil y Self [address] [address] Isaiah Torrez P Personal/Famil y Self [address] [place] [address] Isaiah Torrez P Personal/Famil y Self [address] [place] [address] [address] [place] [address] Shan, Isaiah P Personal/Famil y Self 1980 [address] [facility] [address] [place] [address] Shan, Isaiah P Personal/Famil y Self 1980 [address] [facility] [address] [place] [address] Shan, Isaiah P Personal/Famil y Self 1980 [address] [facility] [address] [place] [address] Shan, Isaiah P Personal/Famil y Self 1980 [address] [facility] [address] [place] [address] Care Teams Mixer Dry Food Products Relationship Specialty Start Date End Date Pcp, Not Required [address] [place] [address] PCP - General 12/23/23 Ashley Kim NP [address] [place] [address] 12/22/23 Additional Source Comments The information contained in this document represents components of the legal health record. It is not the complete legal health record.[facility]
--- OUTSIDE RECORDS SUMMARY | 2024-07-10 18:54 | XMS_ITS | Encounter Summary ---
Author Organization [facility] Address [address] [place] [address] Care Team Providers Care City Administrator Name Role Phone Desirae Wells MD Primary Care Provider Unav Ashley Diallo NP Primary Care Provider [phone] Rachel Chandra MD Primary Care Provider [phone] Encounter Details Date Type Department Care Team (Late st Contact Info) Description 08/25/2015 Orders Only [facility] [address] [place] [phone] Desirae Wells MD Social History Tobacco Use [...] Blood Pressure 129/87(2021 10:51 AM EDT) No Liss Bouchery documented as of this encounter Visit Diagnoses [...] documented as of this encounter Care Teams City Administrator Relationship Specialty Start Date End Date Desirae Wells MD PCP - General 05/26/05 03/12/17 Ashley Kim NP PCP - General Internal Medicine 03/13/17 06/17/24 Rachel Chandra MD [address] [place] [address] PCP - General 06/18/24 documented as of this encounter
--- OUTSIDE RECORDS SUMMARY | 2024-07-10 18:54 | XMS_ITS | Encounter Summary ---
Author Organization [facility] Address [address] [place] [address] Care Team Providers Care Retail Visual Merchandiser Name Role Phone Desirae Wells MD Primary Care Provider Unav Ashley Diallo NP Primary Care Provider [phone] Rachel Chandra MD Primary Care Provider Encounter Details Date Type Department Care Team (Late st Contact Info) Description 10/01/2016 Orders Only [facility] [address] [place] [phone] Desirae Wells MD Social History Tobacco Use [...] BILLED BY ADULT OR PEDIATRIC CARDIOLOGY Routine 10/01/2016 12:49 PM EDT Chest pain on exertion documented in this encounter Results * EKG-TO BE READ AND BILLED BY CARDIOLOGY (10/01/2016 12:49 PM EDT) VENTRICULAR RATE 50 BPM MUS E EKG SYSTEM ATRIAL RATE 50 BPM MUSE EKG SYSTEM P-R INTERVAL 168 ms MUSE EK G SYSTEM QRS DURATION 82 ms MUSE EK G SYSTEM QT 404 ms MUSE EKG SYSTEM QTC 368 ms MUSE EKG SYSTEM P AXIS -15 degrees MUSE EKG SYSTEM R AXIS 52 degrees MUSE EKG SYSTEM T AXIS 27 degrees MUSE EKG SYSTEM EKG INTERPRETATION Sinus bradycardia Otherwise normal ECG When compared with ECG of 08-JUL-2012 15:43, No significant change was found MUSE EKG SYSTEM 10/01/2016 12:4 9 PM EDT 10/02/2016 9:25 AM EDT us S Shirlene Wells MD CARDIOVASCULAR-WITH INBSKT RTG Final Result MUSE EKG SYSTEM documented in this encounter Visit Diagnoses Diagnosis Chest pain on exertion Chest pain, unspecified documented in this encounter Additional Health [...] documented as of this encounter Care Teams Retail Visual Merchandiser Relationship Specialty Start Date End Date Desirae Wells MD PCP - General 05/26/05 03/12/17 Ashley Kim NP PCP - General Internal Medicine 03/13/17 06/17/24 Rachel Chandra MD [address] [place] [address] PCP - General 06/18/24 documented as of this encounter
--- OUTSIDE RECORDS SUMMARY | 2024-07-10 18:54 | XMS_ITS | Encounter Summary ---
Author Organization [facility] Address [address] [place] [address] Care Team Providers Care Larder Cook Name Role Phone Ashley Kim NP Primary Care Provider [phone] Rachel Chandra MD Primary Care Provider [phone] Encounter Details Date Type Department Care Team (Late st Contact Info) Description 05/22/2018 Orders Only [facility] [address] [place] [phone] Billie Gonzales NP [address] [place] [address] Social History Tobacco Use Types Packs/Day Years [...] Procedure Name Priority Date/Time Associated Diagnosis Comments HEAVY METALS PANEL, BLOOD Routine 05/22/2018 10:55 AM EDT Malaise and fatigue documented in this encounter Results * HEAVY METALS PANEL, BLOOD (05/22/2018 10:55 AM EDT) Arsenic 4 <23 mcg/L [facility] Comment: Whole Blood Arsenic level >100 mcg/L is indicative of acute/chronic exposure. Urine is usually the best specimen for the analysis of arsenic in body fluids. Blood levels tend to be low even when urine concentrations are high This test was developed and its analytical performance characteristics have been determined by [place] It has not been cleared or approved by the U.S. Food and Drug Administration. This assay has been validated pursuant to the CLIA regulations and is used for clinical purposes. Mercury <4 <=10 mcg/L [facility] Comment: This test was developed and its analytical performance characteristics have been determined by [employer] It has not been cleared or approved by the U.S. Food and Drug Administration. This assay has been validated pursuant to the CLIA regulations and is used for clinical purposes. Lead <1 <5 mcg/dL [facility] Comment: This test was developed and its analytical performance characteristics have been determined by [employer]. It has not been cleared or approved by the U.S. Food and Drug Administration. This assay has been validated pursuant to the CLIA regulations and is used for clinical purposes. Specimen source Venous [facility] 05/22/2018 10:5 5 AM EDT 05/22/2018 5:07 PM EDT Narrative Resulting Agency Comment [id number] us Billie Gonzales NP LABORATORY Final Result [facility] [address] [place] [address] documented in this encounter Visit Diagnoses Diagnosis Malaise and fatigue documented in this encounter Additional Health Concerns [...] documented as of this encounter Care Teams Larder Cook Relationship Specialty Start Date End Date Ashley Kim NP PCP - General Internal Medicine 03/13/17 06/17/24 Rachel Chandra MD [address] [place] [address] PCP - General 06/18/24 documented as of this encounter
--- OUTSIDE RECORDS SUMMARY | 2024-07-10 18:54 | XMS_ITS | Encounter Summary ---
Author Organization [facility] Address [address] [place] [address] Care Team Providers Care Brick Pointer Name Role Phone Ashley Kim NP Primary Care Provider [phone] Rachel Chandra MD Primary Care Provider [phone] Encounter Details Date Type Department Care Team (Late st Contact Info) Description 09/19/2017 Orders Only [facility] [address] [place] [phone] Ashley Kim NP [address] [place] [address] Social History Tobacco Use Types Packs/Day Years [...] Progress Notes * Ashley Kim NP - 09/21/2017 1:10 PM EDT [employer] message attached to [email or web address]. 09-21-2017 documented in this encounter Plan of Treatment Not on file documented as of this encounter Goals Goal Patient Goal Type Associated Problems Recent Progress Patient-Stated? Author Blood Pressure < 140/90 Blood Pressure 129/87(2021 10:51 AM EDT) No Sander, Anusha documented as of this encounter Procedures Procedure Name Priority Date/Time Associated Diagnosis Comments STREPTOCOCCUS, GROUP A CULTURE Routine 09/19/2017 9:46 AM EDT Sore throat EKG-TO BE READ & BILLED BY ADULT OR PEDIATRIC CARDIOLOGY Routine 09/19/2017 9:25 AM EDT Palpitations documented in this encounter Results * STREPTOCOCCUS, GROUP A CULTURE (09/19/2017 9:46 AM EDT) Culture, Streptococci Group A, Throat SEE NOTE [facility] Comment: ??STREPTOCOCCUS, GROUP A CULTURE ??MICRO NUMBER: ?[id number] ??TEST STATUS: ? FINAL ??SPECIMEN SOURCE: ?? NOT GIVEN ??SPECIMEN QUALITY: ??ADEQUATE ??RESULT: ?No group A Streptococcus isolated 09/19/2017 9:46 AM EDT 09/19/2017 3:25 PM EDT Narrative Resulting Agency Comment [id number] Ashley Kim NP LABORATORY Final Result [facility] [address] [place] [address] * EKG-TO BE READ AND BILLED BY [...] 9:25 AM EDT 09/19/2017 8:26 PM EDT Ashley Kim CRYPTOGRAPHIC CLERK CARDIOVASCULAR-WITH INBSKT RTG Final Result [facility] documented in this encounter Visit Diagnoses Diagnosis Palpitations Sore throat Acute pharyngitis documented in this [...] documented as of this encounter Care Teams Brick Pointer Relationship Specialty Start Date End Date Ashley Kim NP PCP - General Internal Medicine 03/13/17 06/17/24 Rachel Chandra MD [address] [place] [id number] PCP - General 06/18/24 documented as of this encounter
--- OUTSIDE RECORDS SUMMARY | 2024-07-10 18:54 | XMS_ITS | Encounter Summary ---
Author Organization [facility] Address [address] [place] [address] Care Team Providers Care Tubing Mill Operator Name Role Phone Desirae Wells MD Primary Care Provider Unav Ashley Diallo NP Primary Care Provider Rachel Chandra MD Primary Care Provider [phone] Encounter Details Date Type Department Care Team (Late st Contact Info) Description 06/30/2016 Orders Only [facility] [address] [place] [phone] Desirae Wells MD Social History Tobacco Use [...] as of this encounter Progress Notes * Desirae Wells MD - 07/01/2016 12:12 PM EDT . documented in this encounter Plan of Treatment Not on file documented as of this encounter Goals Goal Patient Goal Type Associated Problems Recent Progress Patient-Stated? Author Blood Pressure < 140/90 Blood Pressure 129/87(2021 10:51 AM EDT) No SanderAnusha joseph documented as of this encounter Procedures Procedure Name Priority Date/Time Associated Diagnosis Comments VITAMIN D, 25-HYDROXY, TOTAL, IMMUNOASSAY Routine 06/30/2016 12:05 PM EDT HTN (hypertension), benign HEPATIC FUNCTION PANEL (ALT,AST,ALK PH,BILI'S,TP,ALB) Routine 06/30/2016 12:05 PM EDT HTN (hypertension), benign LIPID PANEL WITH REFLEX TO DIRECT LDL Routine 06/30/2016 12:05 PM EDT HTN (hypertension), benign BASIC METABOLIC PANEL WITH (GFR) Routine 06/30/2016 12:05 PM EDT HTN (hypertension), benign documented in this encounter Results * (ABNORMAL) LIPID PANEL WITH REFLEX TO DIRECT LDL (06/30/2016 12:05 PM EDT) Cholesterol 197 125 - 200 mg/dL [facility] HDL Cholesterol 46 > OR = 40 mg/dL [facility] Triglyceride 52 <150 mg/dL [facility] LDL Cholesterol 141(H) <130 mg/dL (calc) [facility] Comment: Desirable range <100 mg/dL for patients with CHD or diabetes and <70 mg/dL for diabetic patients with known heart disease. CHOL/HDL Ratio 4.3 < OR = 5.0 (calc) [facility] Cholesterol Non-HDL 151 mg/dL (calc) [facility] Comment: Target for non-HDL cholesterol is 30 mg/dL higher than LDL cholesterol target. 06/30/2016 12:0 5 PM EDT 06/30/2016 9:27 PM EDT Narrative Resulting Agency Comment [id number] us S Shirlene Wells MD LABORATORY Final Resul t [facility] [address] [place] [address] * VITAMIN D, 25-HYDROXY, TOTAL, IMMUNOASSAY (06/30/2016 12:05 PM EDT) Vitamin D, 25-OH, Total 31 30 - 100 ng/mL [facility] Comment: Vitamin D Status ? 25-OH Vitamin D: Deficiency: ?<20 ng/mL Insufficiency: ? 20 - 29 ng/mL Optimal: ? > or = 30 ng/mL For 25-OH Vitamin D testing on patients on D2-supplementation and patients for whom quantitation of D2 and D3 fractions is required, the QuestAssureD(TM) 25-OH VIT D, (D2,D3), LC/MS/MS is recommended: order code 16528 (patients >2yrs). For more information on this test, go to: http://education.[employer]/faq/HDR622 (This link is being provided for informational/educational purposes only.) 06/30/2016 12:0 5 PM EDT 06/30/2016 9:27 PM EDT Narrative Resulting Agency Comment [id number] us S Shirlene Wells MD LABORATORY Final Resul t [facility] [address] [place] [address] * HEPATIC FUNCTION PANEL (ALT,AST,ALK PH,BILI'S,TP,ALB) (06/30/2016 12:05 PM EDT) Protein Total (Serum) 7.1 6.1 - 8.1 g/dL [facility] Albumin 4.7 3.6 - 5.1 g/dL [facility] Globulin 2.4 1.9 - 3.7 g/dL (calc) [facility] Albumin/Globulin 2.0 1.0 - 2.5 (calc) [facility] Bilirubin Total 1.0 0.2 - 1.2 mg/dL [facility] Bilirubin Direct 0.2 < OR = 0.2 mg/dL [facility] Bilirubin Indirect 0.8 0.2 - 1.2 mg/dL (calc) [facility] Alkaline phosphatase 50 40 - 115 U/L [facility] AST (SGOT) 25 10 - 40 U/L [facility] ALT (SGPT) 29 9 - 46 U/L [facility] 06/30/2016 12:0 5 PM EDT 06/30/2016 9:27 PM EDT Narrative Resulting Agency Comment [id number] S Shirlene Wells MD LABORATORY Final Resul t Performing Organization Address [facility] de Phone Number [facility] [address] [place] [address] * BASIC METABOLIC PANEL WITH (GFR) (06/30/2016 12:05 PM EDT) Pathologist [facility] Glucose 84 65 - 99 mg/dL [facility] Comment:Fasting reference in terval Urea Nitrogen Blood (BUN) 17 7 - 25 mg/dL [facility] Creatinine 0.94 0.60 - 1.35 mg/dL [facility] GFR 105 > OR = 60 mL/min/1. 73m2 [facility] GFR () 121 > OR = 60 mL/min/1. 73m2 [facility] BUN/Creatinine Ratio NOT APPLICABLE 6 - 22 (calc) [facility] Sodium 140 135 - 146 mmol/L [facility] Potassium 4.6 3.5 - 5.3 mmol/L [facility] Chloride 104 98 - 110 mmol/L [facility] Carbon dioxide 29 20 - 31 mmol/L [facility] Calcium 9.9 8.6 - 10.3 mg/dL [facility] 06/30/2016 12:0 5 PM EDT 06/30/2016 9:27 PM EDT Narrative [facility] - 07/01/2016 12:16 AM EDT Please note that this estimated GFR [...] needs for GFR calculation. Resulting Agency Comment [id number] S Shirlene Wells MD LABORATORY Final Resul t Performing Organization Address [facility]/ZIP Co de Phone Number [facility] [address] [place] [address] documented in this encounter Visit Diagnoses Diagnosis HTN (hypertension), benign Essential hypertension, benign documented [...] documented as of this encounter Care Teams Tubing Mill Operator Relationship Specialty Start Date End Date Desirae Wells MD PCP - General 05/26/05 03/12/17 Ashley Kim NP PCP - General Internal Medicine 03/13/17 06/17/24 Rachel Chandra MD [address] [place] [id number] PCP - General 06/18/24 documented as of this encounter
--- OUTSIDE RECORDS SUMMARY | 2024-07-10 18:54 | XMS_ITS | Encounter Summary ---
Author Organization [facility] Address [address] [place] [address] Care Team Providers Care Loom Stop Checker Name Role Phone Desirae Wells MD Primary Care Provider Unav Ashley Diallo NP Primary Care Provider [phone] Rcahel Chandra MD Primary Care Provider [phone] Encounter Details Date Type Department Care Team (Late st Contact Info) Description 09/02/2013 Orders Only [facility] [address] [place] [phone] Desirae Wells MD Social History Tobacco Use [...] as of this encounter Visit Diagnoses Diagnosis Unspecified vitamin D deficiency- Primary documented in this encounter Additional Health [...] documented as of this encounter Care Teams Loom Stop Checker Relationship Specialty Start Date End Date Desirae Wells MD PCP - General 05/26/05 03/12/17 Ashley Kim NP PCP - General Internal Medicine 03/13/17 06/17/24 Rachel Chandra MD [address] [place] [id number] PCP - General 06/18/24 documented as of this encounter
--- OUTSIDE RECORDS SUMMARY | 2024-07-10 18:54 | XMS_ITS | Encounter Summary ---
Author Organization [facility] Address [address] [place] [address] Care Team Providers Care Plant Manager Name Role Phone Desirae Wells MD Primary Care Provider Unav Ashley Diallo NP Primary Care Provider [phone] Rachel Chandra MD Primary Care Provider [phone] Encounter Details Date Type Department Care Team (Late st Contact Info) Description 05/13/2013 Orders Only [facility] [address] [place] [phone] Desirae Wells MD Social History Tobacco Use [...] as of this encounter Visit Diagnoses Diagnosis Constipation- Primary Unspecified constipation Dysphagia Dysphagia, unspecified documented in this encounter Additional Health [...] documented as of this encounter Care Teams Plant Manager Relationship Specialty Start Date End Date Desirae Wells MD PCP - General 05/26/05 03/12/17 Ashley Kim NP PCP - General Internal Medicine 03/13/17 06/17/24 Rachel Chandra MD [address] [place] [id number] PCP - General 06/18/24 documented as of this encounter
--- OUTSIDE RECORDS SUMMARY | 2024-07-10 18:54 | XMS_ITS | Encounter Summary ---
Author Organization [facility] Address [address] [place] [address] Care Team Providers Care Travel Agent Name Role Phone Ashley Kim NP Primary Care Provider [phone] Rachel Chandra MD Primary Care Provider [phone] Reason for Visit * Reason Comments E-prescribing Refill Request Encounter Details Date Type Department Care Team (Late st Contact Info) Description 03/07/2018 Refill [facility] [address] [place] [phone] Ashley Kim NP [address] [place] [address] E-prescribing Refill Request Social History Tobacco Use [...] encounter Miscellaneous Notes * Telephone Encounter - Lizbeth Hyman - 03/07/2018 11:26 AM EST Any special requests or concerns? none Faxed/E-prescribed medication renewal request(s) for Isaiah Torrez 37 y.o. male received from pharmacy. Verified and Confirmed pharmacy for patient. Last CPE with this specialty: 04/29/2017 Last OV with this specialty: 02/14/2018 Next OV: Future Appointments Date Time Provider Department Phone 03/11/18 3:45 PM Ashley Kim NP [facility] [phone] Pertinent lab results: No labs suggested for [...] to Visit Medication Sig Dispense Refill ??? Doxycycline Monohydrate 100 MG Cap 1 by mouth twice a day for 10 days 20 Cap 0 ??? AmLODIPine Besylate 5 MG Tab TAKE 1 TABLET BY MOUTH EVERY DAY 30 Tab 0 ??? ClonazePAM 0.5 MG Tab TAKE 1 TO 2 TABLETS BY MOUTH ONCE DAILY NEEDED 60 Tab 1 ??? LEXAPRO 20 MG Tab TAKE 1 [...] SHORTNESS OF BREATH/WHEEZE 17 g 5 ??? CED-ZQK-Yrsrgvsi Y51-Lxjbjtw E (CO Q-10 VITAMIN E FISH OIL) 42-61-57-200 Cap 1 CAPSULES DAILY ??? B Complex [...] as of this encounter Visit Diagnoses Diagnosis Hypertension Essential hypertension, benign documented in this encounter [...] documented as of this encounter Care Teams Travel Agent Relationship Specialty Start Date End Date Ashley Kim NP PCP - General Internal Medicine 03/13/17 06/17/24 Rachel Chandra MD [address] [place] [id number] PCP - General 06/18/24 documented as of this encounter
--- OUTSIDE RECORDS SUMMARY | 2024-07-10 18:54 | XMS_ITS | Encounter Summary ---
Author Organization [facility] Address [address] [place] [address] Care Team Providers Care Platform Power Technician Name Role Phone Desirae Wells MD Primary Care Provider Unav Ashley Diallo NP Primary Care Provider [phone] Rachel Chandra MD Primary Care Provider [phone] Encounter Details Date Type Department Care Team (Late st Contact Info) Description 09/18/2013 Orders Only [facility] [address] [place] [phone] Desirae Wells MD Social History Tobacco Use [...] Comments VITAMIN D, 25-HYDROXY, TOTAL, IMMUNOASSAY Routine 09/18/2013 3:01 PM EDT Unspecified vitamin D deficiency LIPID PANEL WITH REFLEX TO DIRECT LDL Routine 09/18/2013 3:01 PM EDT Hyperlipidemia documented in this encounter Results * (ABNORMAL) LIPID PANEL WITH REFLEX TO DIRECT LDL (09/18/2013 3:01 PM EDT) Cholesterol 217(H) 125 - 200 mg/dL [facility] Comment:{CHOLESTEROL, TOTAL {[id number]) HDL Cholesterol 59 > OR = 40 mg/dL [facility] Comment:{HDL CHOLESTEROL {[id number]) Triglyceride 61 <150 mg/dL [facility] Comment:{TRIGLYCERIDES {[id number]) LDL Cholesterol 146(H) <130 mg/dL (calc) [facility] Comment: {LDL-CHOLESTEROL {[id number]) Desirable range <100 mg/dL for patients with CHD or diabetes and <70 mg/dL for diabetic patients with known heart disease. CHOL/HDL Ratio 3.7 < OR = 5.0 (calc) [facility] Comment:{CHOL/HDLC RATIO {[id number]) Cholesterol Non-HDL 158 mg/dL (calc) [facility] Comment: {NON HDL CHOLESTEROL {[id number]) Target for non-HDL cholesterol is 30 mg/dL higher than LDL cholesterol target. 09/18/2013 3:01 PM EDT 09/18/2013 10:41 PM EDT Narrative Resulting Agency Comment [id number] us S Shirlene Wells MD LABORATORY Final Resul t Performing Organization Address City/State/[facility] Co de Phone Number [facility] [address] [place] [address] * VITAMIN D, 25-HYDROXY, LC/MS/MS (09/18/2013 3:01 PM EDT) Vitamin D, 25-OH, Total 43 30 - 100 ng/mL [facility] Comment:{VITAMIN D, 25 OH, T OTAL {[id number]) Vitamin D, D3 (Cholecalciferol ) 43 ng/mL [facility] Comment:{VITAMIN D, 25 OH, D 3 {[id number]) Vitamin D, 25-OH, D2 (Calciferol) <4 ng/mL [facility] Comment: {VITAMIN D, 25 OH, D2 {[id number]) ? 25-OHD3 indicates both endogenous production and ? supplementation. 25-OHD2 is an indicator of exogenous ? sources such as diet or supplementation. Therapy is based on ? measurement of Total 25-OHD, with levels <20 ng/mL indicative ? of Vitamin D deficiency, while levels between 20 ng/mL and ? 30 ng/mL suggest insufficiency. Optimal levels are ? > or = 30 ng/mL. 09/18/2013 3:01 PM EDT 09/18/2013 10:41 PM EDT Narrative Resulting Agency Comment [id number] S Shirlene Wells MD LABORATORY Final Resul t Performing Organization Address City/State/[facility] Co de Phone Number [facility] [address] [place] [address] documented in this encounter Visit Diagnoses Diagnosis Unspecified vitamin D deficiency Hyperlipidemia Other and unspecified hyperlipidemia documented in this encounter Additional Health [...] documented as of this encounter Care Teams Platform Power Technician Relationship Specialty Start Date End Date Desirae Wells MD PCP - General 05/26/05 03/12/17 Ashley Kim NP PCP - General Internal Medicine 03/13/17 06/17/24 Rachel Chandra MD [address] [place] [address] PCP - General 06/18/24 documented as of this encounter
--- OUTSIDE RECORDS SUMMARY | 2024-07-10 18:54 | XMS_ITS | Encounter Summary ---
Author Organization [facility] Address [address] [place] [address] Care Team Providers Care Coding Tech Name Role Phone Ashley Kim NP Primary Care Provider [phone] Rachel Chandra MD Primary Care Provider [phone] Reason for Visit * Reason Onset Date Comments Refill Request 08/20/2023 Encounter Details Date Type Department Care Team (Late st Contact Info) Description 08/20/2023 Refill [facility] [address] [place] [phone] Ashley Kim NP [address] [place] [address] Refill Request Social History Tobacco Use Types [...] file Not on file Not on file documented as of this encounter Miscellaneous Notes * Telephone Encounter - ChapisDanny pemberton - 08/21/2023 9:48 AM EDT Images from the original note were not included. Pt reported that he did see Dr. Rivera who was in agreement to move him up to taking 3 mg of clonazepam daily, but that he did not feel that Dr. Rivera would be a proper fit as his psychiatrist moving forward so he will not be seeing him again and will instead look for a new psychiatrist. Pt is looking to refill his Clonazepam 0.5 mg tablet so that he can continue to take it with the 2 mg tablets that were prescribed by Dr. Rivera so he can continue on 3 mg's daily as he has been doing for a few weeks now. Order pending as last prescribed. Review and edit SIG and start date as appropriate. Provider please review and advise as appropriate. If refill is Not appropriate or if you wish for pt to set up an OV to discuss this then please have someone from your care team reach out to the pt. * Telephone Encounter - Ana Patton, Pharmacy Navigator - 08/21/2023 9:19 AM EDT Left vm for call back * Telephone Encounter - Ashley Kim NP - 08/20/2023 4:09 PM EDT Please let this patient know that his last refill was for 2 mg which I do not prescribe for him. This was apparently prescribed by a Dr. Coker, a psychiatrist, in [place], [place]. I assume he will be getting this prescription from this provider going forward. * Telephone Encounter - Brielle Gonzalez - 08/20/2023 12:32 PM EDT Images from the original note were not included. Concerns for Provider Review: ACTIVITIES MANAGER / [facility] data obtained. Provider, please review details below to determine if the refill pattern is acceptable. If a pill count or other monitoring is indicated, please have your care team reach out to the patient. Next refill due: 08/30/23. Provider: Adjust prescription start date if desired. Pharmacy Confirmed? Verified pharmacy with patient. When is the medication needed? within 48 hours, will send routine message Past and Future Appointments in Auth Provider Departments: Recent Visits Date Type Provider Dept 07/16/23 Office Visit Ashley Kim NP [facility] 11/27/22 Office Visit Ashley Kim NP [facility] 08/28/22 Office Visit Ashley Kim NP [facility] 01/17/22 Appointment Ashley Kim NP [facility] 11/21/21 Office Visit Ashley Kim NP [facility] 10/17/21 CPE - Comprehensive Physical Exam Ashley Kim NP [facility] Showing recent visits within past 720 days in an active department and meeting all other requirements Future Appointments No visits were found meeting these conditions. Showing future appointments within next 400 days in an active department and meeting all other requirements Requested Medication Details Requested Benzodiazepines: clonazePAM (KlonoPIN) 0.5 MG tablet, Take one tablet (0.5 mg total) by mouth 2 (two) times a day ifneeded for anxiety ; avoid any driving, operating machinery, and alcohol when taking this medication. ACTIVITIES MANAGER: ACTIVITIES MANAGER website checked this encounter? Yes Fill Guidance: PRN Medications: Prescription should be prepared as previously filled (No Changes). Visit Needs: None CPE Needs: Patient is 43 y.o. and is due for CPE based on Age Group. It has been more than 2 year since their last CPE and there is no future CPE Scheduled. No action to be taken by Pharmacy Navigator at this time. Last Billed CPE Details: None Next Scheduled CPE Details: None Lab Needs: None Pertinent Lab Results and Recommendations Pended medication order(s) and sent to provider. Patient expects medication renewal unless notifiedotherwise. documented in this encounter Plan of Treatment Not on file documented as of this encounter Goals Goal Patient Goal Type Associated Problems Recent Progress Patient-Stated? Author Blood Pressure < 140/90 Blood Pressure 129/87(2021 10:51 AM EDT) No Anusha Boucher documented as of this encounter Visit Diagnoses Diagnosis Anxiety Anxiety state, unspecified Panic disorder Panic disorder without agoraphobia documented in this encounter Care Teams Coding Tech Relationship Specialty Start Date End Date Ashley Kim NP PCP - General Internal Medicine 03/13/17 06/17/24 Rachel Chandra MD [address] [place] [address] PCP - General 06/18/24 documented as of this encounter
--- OUTSIDE RECORDS SUMMARY | 2024-07-10 18:54 | XMS_ITS | Encounter Summary ---
Author Organization [facility] Address [address] [place] [address] Care Team Providers Care Stereo Compiler Name Role Phone Ashley Kim NP Primary Care Provider Rachel Chandra MD Primary Care Provider [phone] Encounter Details Date Type Department Care Team (Late st Contact Info) Description 09/18/2017 Orders Only [facility] [address] [place] [phone] Ashley Kim NP [address] [place] [address] Social History Tobacco Use Types Packs/Day Years [...] Progress Notes * Ashley Kim NP - 09/20/2017 9:52 AM EDT Patient aware documented in this encounter Plan of Treatment Not on file documented as of this encounter Goals Goal Patient Goal Type Associated Problems Recent Progress Patient-Stated? Author Blood Pressure < 140/90 Blood Pressure 129/87(2021 10:51 AM EDT) No Anusha Boucher documented as of this encounter Procedures Procedure Name Priority Date/Time Associated Diagnosis Comments CULTURE, URINE, ROUTINE Routine 09/18/2017 1:25 PM EDT Cloudy urine CBC INCLUDES DIFFERENTIAL AND PLATELET COUNT Routine 09/18/2017 1:25 PM EDT Routine history and physical examination of adult Alcohol abuse, episodic FOLATE, SERUM Routine 09/18/2017 1:25 PM EDT Alcohol abuse, episodic VITAMIN B12 (CYANOCOBALAMIN), SERUM Routine 09/18/2017 1:25 PM EDT Alcohol abuse, episodic VITAMIN D, 25-HYDROXY, TOTAL, IMMUNOASSAY Routine 09/18/2017 1:25 PM EDT Routine history and physical examination of adult URINALYSIS, COMPLETE INCLUDES DIPSTICK AND MICROSCOPIC Routine 09/18/2017 1:25 PM EDT Cloudy urine LIPID PANEL WITH REFLEX TO DIRECT LDL Routine 09/18/2017 1:25 PM EDT Routine history and physical examination of adult COMPREHENSIVE METABOLIC PANEL WITH GFR Routine 09/18/2017 1:25 PM EDT Routine history and physical examination of adult documented in this encounter Results * URINALYSIS, COMPLETE INCLUDES DIPSTICK AND MICROSCOPIC (09/18/2017 1:25 PM EDT) Color (Urine) YELLOW YELLOW [facility] Appearance (Urine) CLEAR CLEAR [facility] Specific gravity (Urine) 1.020 1.001 - 1.035 [facility] pH (Urine) 6.0 5.0 - 8.0 [facility] Glucose (Urine) NEGATIVE NEGATIVE [facility] Bilirubin (Urine) NEGATIVE NEGATIVE [facility] Ketones (Urine) NEGATIVE NEGATIVE [facility] Hemoglobin (Urine) NEGATIVE NEGATIVE [facility] Protein (Urine) NEGATIVE NEGATIVE [facility] Nitrite (Urine) NEGATIVE NEGATIVE [facility] Leukocyte esterase (Urine) NEGATIVE NEGATIVE [facility] WBC (Urine) NONE SEEN < OR = 5 /HPF [facility] RBC (Urine Sed) NONE SEEN < OR = 2 /HPF [facility] Epithelial cells.squamous (Urine sed) NONE SEEN < OR = 5 /HPF [facility] Bacteria (Urine) NONE SEEN NONE SEEN /HPF [facility] Hyaline casts (Urine sed) NONE SEEN NONE SEEN /LPF [facility] 09/18/2017 1:25 PM EDT 09/18/2017 11:00 PM EDT Narrative Resulting Agency Comment [id number] Ashley Kim NP LAB SAME DAY RESULT Final Resul t Performing Organization Address [facility] de Phone Number [facility] [address] [place] [address] * CULTURE, URINE, ROUTINE (09/18/2017 1:25 PM EDT) Pathologist [facility] Bacteria culture (Urine) SEE NOTE [facility] Comment: ??CULTURE, URINE, ROUTINE ??MICRO NUMBER: ?[id number] ??TEST STATUS: ? FINAL ??SPECIMEN SOURCE: ?? URINE ??SPECIMEN QUALITY: ??ADEQUATE ??RESULT: ?No Growth 09/18/2017 1:25 PM EDT 09/18/2017 11:00 PM EDT Narrative Resulting Agency Comment [id number] Ashley Kim NP LABORATORY Final Result Performing Organization Address [facility] de Phone Number [facility] [address] [place] [address] * CBC INCLUDES DIFFERENTIAL AND PLATELET COUNT (09/18/2017 1:25 PM EDT) Pathologist [facility] WBC 4.5 3.8 - 10.8 Thousand/u L [facility] RBC 5.18 4.20 - 5.80 Million/uL [facility] Hemoglobin 15.0 13.2 - 17.1 g/dL [facility] Hematocrit 44.1 38.5 - 50.0 % [facility] MCV 85.1 80.0 - 100.0 fL [facility] MCH 29.0 27.0 - 33.0 pg [facility] MCHC 34.0 32.0 - 36.0 g/dL [facility] RDW 13.9 11.0 - 15.0 % [facility] PLT 240 140 - 400 Thousand/u L [facility] MPV 10.3 7.5 - 12.5 fL [facility] Neutrophils # 2169 1500 - 7800 cells/uL [facility] Lymphocytes # 1800 850 - 3900 cells/uL [facility] Monocytes # 320 200 - 950 cells/uL [facility] Eosinophils # 171 15 - 500 cells/uL [facility] Basophils # 41 0 - 200 cells/uL [facility] Neutrophils % 48.2 % [facility] Lymphocytes % 40.0 % [facility] Monocytes % 7.1 % [facility] Eosinophils % 3.8 % [facility] Basophils % 0.9 % [facility] 09/18/2017 1:25 PM EDT 09/18/2017 11:00 PM EDT Narrative Resulting Agency Comment [id number] Ashley Kim NUMERICAL ANALYSIS GROUP MANAGER LAB SAME DAY RESULT Final Resul t Performing Organization Address City/State/[facility] [[email or web address]] Co de Phone Number [facility] [address] [place] [phone] * FOLATE, SERUM (09/18/2017 1:25 PM EDT) Folate 19.0 ng/mL [facility] Comment: ? Reference Range ? Low: ? <3.4 ? Borderline: ?3.4-5.4 ? Normal: ?>5.4 09/18/2017 1:25 PM EDT 09/18/2017 11:00 PM EDT Narrative Resulting Agency Comment [id number] Ashley Kim NUMERICAL ANALYSIS GROUP MANAGER LABORATORY Final Result Performing Organization Address [facility] [[email or web address]] Co de Phone Number [facility] [address] [place] [address] * VITAMIN B12 (CYANOCOBALAMIN), SERUM (09/18/2017 1:25 PM EDT) Vitamin B12 (Cobalamins) 394 200 - 1100 pg/mL [facility] Comment: Please Note: Although the reference range for vitamin B12 is 200-1100 pg/mL, it has been reported that between 5 and 10% of patients with values between 200 and 400 pg/mL may experience neuropsychiatric and hematologic abnormalities due to occult B12 deficiency; less than 1% of patients with values above 400 pg/mL will have symptoms. 09/18/2017 1:25 PM EDT 09/18/2017 11:00 PM EDT Narrative Resulting Agency Comment [id number] Ashley Kim NP LABORATORY Final Result Performing Organization Address [facility] de Phone Number [facility] [address] [place] [address] * VITAMIN D, 25-HYDROXY, TOTAL, IMMUNOASSAY (09/18/2017 1:25 PM EDT) Vitamin D, 25-OH, Total 35 30 - 100 ng/mL [facility] Comment: Vitamin D Status ? 25-OH Vitamin D: Deficiency: ?<20 ng/mL Insufficiency: ? 20 - 29 ng/mL Optimal: ? > or = 30 ng/mL For 25-OH Vitamin D testing on patients on D2-supplementation and patients for whom quantitation of D2 and D3 fractions is required, the QuestAssureD(TM) 25-OH VIT D, (D2,D3), LC/MS/MS is recommended: order code 80048 (patients >2yrs). For more information on this test, go to: http://education.Intelligent Mobile Support.Motribe/faq/IRG446 (This link is being provided for informational/educational purposes only.) 09/18/2017 1:25 PM EDT 09/18/2017 11:00 PM EDT Narrative Resulting Agency Comment [id number] Ashley Kim NP LABORATORY Final Result Performing Organization Address [facility] de Phone Number [facility] [address] [place] [address] * (ABNORMAL) LIPID PANEL WITH REFLEX TO DIRECT LDL (09/18/2017 1:25 PM EDT) Cholesterol 272(H) <200 mg/dL [facility] HDL Cholesterol 54 >40 mg/dL [facility] Triglyceride 309(H) <150 mg/dL [facility] LDL Cholesterol 170(H) mg/dL (calc) [facility] Comment: Reference range: [...] LDL-C. Bryce SS et al. JULIENNE. 2013;310(19): 6065-3446 (http://education.Dealstreet.Motribe/faq/GOM373) CHOL/HDL Ratio 5.0(H) <5.0 (calc) [facility] Cholesterol Non-HDL 218(H) <130 mg/dL (calc) [facility] Comment: For patients with diabetes plus 1 major ASCVD risk factor, treating to a non-HDL-C goal of <100 mg/dL (LDL-C of <70 mg/dL) is considered a therapeutic option. 09/18/2017 1:25 PM EDT 09/18/2017 11:00 PM EDT Narrative Resulting Agency Comment [id number] Ashley Kim NP LABORATORY Final Result Performing Organization Address [facility] [[email or web address]] Co de Phone Number [facility] [address] [place] [address] * (ABNORMAL) COMPREHENSIVE METABOLIC PANEL WITH GFR (09/18/2017 1:25 PM EDT) Glucose 87 65 - 99 mg/dL [facility] Comment:Fasting reference in terval Urea Nitrogen Blood (BUN) 16 7 - 25 mg/dL [facility] Creatinine 0.80 0.60 - 1.35 mg/dL [facility] GFR 115 > OR = 60 mL/min/1 .73m2 [facility] GFR () 133 > OR = 60 mL/min/1 .73m2 [facility] BUN/Creatinine Ratio NOT APPLICABLE 6 - 22 (calc) [facility] Sodium 140 135 - 146 mmol/L [facility] Potassium 4.7 3.5 - 5.3 mmol/L [facility] Chloride 101 98 - 110 mmol/L [facility] Carbon dioxide 25 20 - 31 mmol/L [facility] Calcium 9.9 8.6 - 10.3 mg/dL [facility] Protein Total (Serum) 7.7 6.1 - 8.1 g/dL [facility] Albumin 4.9 3.6 - 5.1 g/dL [facility] Globulin 2.8 1.9 - 3.7 g/dL (calc) [facility] Albumin/Globuli n 1.8 1.0 - 2.5 (calc) [facility] Bilirubin Total 0.5 0.2 - 1.2 mg/dL [facility] Alkaline phosphatase 59 40 - 115 U/L [facility] AST (SGOT) 41(H) 10 - 40 U/L [facility] ALT (SGPT) 56(H) 9 - 46 U/L [facility] 09/18/2017 1:25 PM EDT 09/18/2017 11:00 PM EDT Narrative [facility] - 09/19/2017 4:33 AM EDT Please note that this estimated [...] needs for GFR calculation. Resulting Agency Comment [id number] Ashley Kim NP LABORATORY Final Result [facility] [address] [place] [address] documented in this encounter Visit Diagnoses Diagnosis Routine history and physical examination of adult Routine general medical examination at a health care facility Alcohol abuse, episodic Nondependent alcohol abuse, episodic drinking behavior Cloudy urine Other nonspecific finding on examination of urine documented in this encounter Additional Health Concerns [...] documented as of this encounter Care Teams Stereo Compiler Relationship Specialty Start Date End Date Ashley Kim NP PCP - General Internal Medicine 03/13/17 06/17/24 Rachel Chandra MD [address] [place] [address] PCP - General 06/18/24 documented as of this encounter
--- OUTSIDE RECORDS SUMMARY | 2024-07-10 18:54 | XMS_ITS | Encounter Summary ---
Author Organization [facility] Address [address] [place] [address] Care Team Providers Care Binding Dyer Name Role Phone Ashley Kim NP Primary Care Provider [phone] Rachel Chandra MD Primary Care Provider [phone] Reason for Visit * Reason Comments E-prescribing Refill Request Encounter Details Date Type Department Care Team (Late st Contact Info) Description 05/06/2018 Refill [facility] [address] [place] [phone] Ashley Kim NP [address] [place] [address] E-prescribing Refill Request Social History Tobacco Use [...] Notes * Telephone Encounter - Kenny Rao [place] - 05/06/2018 2:17 PM EST Any special requests or concerns? Last filled 03/10/18 Faxed/E-prescribed medication renewal request(s) for Isaiah Torrez 37 y.o. male received from pharmacy. Verified and Confirmed pharmacy for patient. Last CPE with this specialty: 04/29/2017 Last OV with this specialty: 05/01/2018 Next OV: Future Appointments Date Time Provider Department Phone 05/12/18 3:15 PM Billie Gonzales NP [facility] [phone] Pertinent lab results: No labs suggested for any medication orders signed or pended in this encounter. Refresh if any orders changed. Allergies: Review of patient's allergies indicates no known allergies. BP Readings from Last 1 Encounters: 05/01/18 130/81 Patient Active Problem List Diagnosis Date Noted [...] TABLET BY MOUTH EVERY DAY 30 Tab 5 ??? ClonazePAM 0.5 MG Tab TAKE 1 TO 2 TABLETS BY MOUTH ONCE DAILY NEEDED 60 Tab 1 ??? RaNITidine HCl 75 MG Tab 1 TABLET 1 TO 2 TIMES A DAY NEEDED ??? ALBUTEROL SULFATE (PROAIR HFA) 108 (90 BASE) MCG/ACT Aero Soln inhale 2 puffs by mouth every 4 hours if needed FOR SHORTNESS OF BREATH/WHEEZE 17 g 5 ??? [id number]-KOE-Iqhndtpc C08-Xvlkktt E (CO Q-10 VITAMIN E FISH OIL) 24-46-58-200 Cap 1 CAPSULES DAILY ??? B Complex [...] documented as of this encounter Care Teams Binding Dyer Relationship Specialty Start Date End Date Ashley Kim NP PCP - General Internal Medicine 03/13/17 06/17/24 Rachel Chandra MD [address] [place] [address] PCP - General 06/18/24 documented as of this encounter
--- OUTSIDE RECORDS SUMMARY | 2024-07-10 18:54 | XMS_ITS | Encounter Summary ---
Author Organization [facility] Address [address] [place] [address] Care Team Providers Care Quality Assurance Lead Name Role Phone Desirae Wells MD Primary Care Provider Unav Ashley Diallo NP Primary Care Provider [phone] Rachel Chandra MD Primary Care Provider [phone] Encounter Details Date Type Department Care Team (Late st Contact Info) Description 06/10/2015 Orders Only [facility] [address] [place] [phone] Desirae Wells MD Social History Tobacco Use [...] Procedure Name Priority Date/Time Associated Diagnosis Comments HEMOGLOBIN A1C Routine 06/10/2015 3:31 PM EDT Mixed hyperlipidemia VITAMIN D, 25-HYDROXY, TOTAL, IMMUNOASSAY Routine 06/10/2015 3:31 PM EDT Alcohol abuse HEPATIC FUNCTION PANEL (ALT,AST,ALK PH,BILI'S,TP,ALB) Routine 06/10/2015 3:31 PM EDT Alcohol abuse LIPID PANEL WITH REFLEX TO DIRECT LDL Routine 06/10/2015 3:31 PM EDT Hyperlipidemia BASIC METABOLIC PANEL WITH (GFR) Routine 06/10/2015 3:31 PM EDT HTN (hypertension), benign documented in this encounter Results * HEMOGLOBIN A1C (06/10/2015 3:31 PM EDT) Hemoglobin A1C 5.1 <5.7 % of total Hgb [facility] Comment: {HEMOGLOBIN A1c {[id number]) According to ADA guidelines, hemoglobin A1c <7.0% represents optimal control in non- diabetic patients. Different metrics may apply to specific patient populations. Standards of Medical Care in Diabetes-2013. Diabetes Care. 2013;36:s11-s66 For the purpose of screening for the presence of diabetes <5.7% ? Consistent with the absence of diabetes 5.7-6.4% ?Consistent with increased risk for diabetes ?(prediabetes) >or=6.5% ?Consistent with diabetes This assay result is consistent with a decreased risk of diabetes. Currently, no consensus exists for use of hemoglobin A1c for diagnosis of diabetes for children. Estimated Average Glucose 104 mg/dL (calc) [facility] Comment:{MEAN PLASMA GLUCOSE {[id number]) 06/10/2015 3:31 PM EDT 06/10/2015 11:49 PM EDT Narrative Resulting Agency Comment [id number] us S Shirlene Wells MD LABORATORY Final Resul t [facility] [address] [place] [address] * VITAMIN D, 25-HYDROXY, TOTAL, IMMUNOASSAY (06/10/2015 3:31 PM EDT) Pathologist [facility] Vitamin D, 25-OH, Total 45 30 - 100 ng/mL [facility] Comment: {VITAMIN D,25-OH,TOTAL,IA {[id number]) Vitamin D Status ? 25-OH Vitamin D: Deficiency: ?<20 ng/mL Insufficiency: ? 20 - 29 ng/mL Optimal: ? > or = 30 ng/mL For 25-OH Vitamin D testing on patients on D2-supplementation and patients for whom quantitation of D2 and D3 fractions is required, the QuestAssureD(TM) 25-OH VIT D, (D2,D3), LC/MS/MS is recommended: order code [id number] (patients >2yrs). For more information on this test, go to: http://education.FlowMetric/faq/MKH874 (This link is being provided for informational/educational purposes only.) 06/10/2015 3:31 PM EDT 06/10/2015 11:49 PM EDT Narrative Resulting Agency Comment [id number] us S Shirlene Wells MD LABORATORY Final Resul t [facility] [address] [place] [address] * (ABNORMAL) HEPATIC FUNCTION PANEL (ALT,AST,ALK PH,BILI'S,TP,ALB) (06/10/2015 3:31 PM EDT) Pathologist [facility] Protein Total (Serum) 7.2 6.1 - 8.1 g/dL [facility] Comment:{PROTEIN, TOTAL {[id number]) Albumin 5.1 3.6 - 5.1 g/dL [facility] Comment:{ALBUMIN {[id number]) Globulin 2.1 1.9 - 3.7 g/dL (calc) [facility] Comment:{GLOBULIN {[id number]) Albumin/Globulin 2.4 1.0 - 2.5 (calc) [facility] Comment:{ALBUMIN/GLOBULIN RA ORA {[id number]) Bilirubin Total 1.0 0.2 - 1.2 mg/dL [facility] Comment:{BILIRUBIN, TOTAL {[id number]) Bilirubin Direct 0.2 < OR = 0.2 mg/dL [facility] Comment:{BILIRUBIN, DIRECT { [id number]) Bilirubin Indirect 0.8 0.2 - 1.2 mg/dL (calc) [facility] Comment:{BILIRUBIN, INDIRECT {[id number]) Alkaline phosphatase 37(L) 40 - 115 U/L [facility] Comment:{ALKALINE PHOSPHATAS E {[id number]) AST (SGOT) 21 10 - 40 U/L [facility] Comment:{AST {[id number]) ALT (SGPT) 30 9 - 46 U/L [facility] Comment:{ALT {[id number]) 06/10/2015 3:31 PM EDT 06/10/2015 11:49 PM EDT Narrative Resulting Agency Comment [id number] us Madelyn Simental MD LABORATORY Final Result [facility] [address] [place] [address] * BASIC METABOLIC PANEL WITH (GFR) (06/10/2015 3:31 PM EDT) Glucose 84 65 - 99 mg/dL [facility] Comment: {GLUCOSE {[id number]) ? Fasting reference interval Urea Nitrogen Blood (BUN) 15 7 - 25 mg/dL [facility] Comment:{UREA NITROGEN (BUN) {[id number]) Creatinine 1.10 0.60 - 1.35 mg/dL [facility] Comment:{CREATININE {[id number]) GFR 87 > OR = 60 mL/min/1. 73m2 [facility] Comment:{eGFR NON-AFR. AMERI CAN {[id number]) GFR () 101 > OR = 60 mL/min/1. 73m2 [facility] Comment:{eGFR AMERIC AN {[id number]) BUN/Creatinine Ratio NOT APPLICABLE 6 - 22 (calc) [facility] Comment:{BUN/CREATININE RATI O {[id number]) Sodium 138 135 - 146 mmol/L [facility] Comment:{SODIUM {[id number]) Potassium 4.0 3.5 - 5.3 mmol/L [facility] Comment:{POTASSIUM {[id number]) Chloride 102 98 - 110 mmol/L [facility] Comment:{CHLORIDE {[id number]) Carbon dioxide 26 19 - 30 mmol/L [facility] Comment:{CARBON DIOXIDE {[id number]) Calcium 10.1 8.6 - 10.3 mg/dL [facility] Comment:{CALCIUM {[id number]) 06/10/2015 3:31 PM EDT 06/10/2015 11:49 PM EDT Narrative [facility] - 06/11/2015 2:44 AM EDT Please note that this estimated [...] needs for GFR calculation. Resulting Agency Comment [id number] us S Shirlene Wells MD LABORATORY Final Resul t [facility] [address] [place] [address] * (ABNORMAL) LIPID PANEL WITH REFLEX TO DIRECT LDL (06/10/2015 3:31 PM EDT) Cholesterol 217(H) 125 - 200 mg/dL [facility] Comment:{CHOLESTEROL, TOTAL {[id number]) HDL Cholesterol 38(L) > OR = 40 mg/dL [facility] Comment:{HDL CHOLESTEROL {[id number]) Triglyceride 62 <150 mg/dL [facility] Comment:{TRIGLYCERIDES {[id number]) LDL Cholesterol 167(H) <130 mg/dL (calc) [facility] Comment: {LDL-CHOLESTEROL {[id number]) Desirable range <100 mg/dL for patients with CHD or diabetes and <70 mg/dL for diabetic patients with known heart disease. CHOL/HDL Ratio 5.7(H) < OR = 5.0 (calc) [facility] Comment:{CHOL/HDLC RATIO {[id number]) Cholesterol Non-HDL 179(H) mg/dL (calc) [facility] Comment: {NON HDL CHOLESTEROL {[id number]) Target for non-HDL cholesterol is 30 mg/dL higher than LDL cholesterol target. 06/10/2015 3:31 PM EDT 06/10/2015 11:49 PM EDT Narrative Resulting Agency Comment [id number] S Shirlene Wells MD LABORATORY Final Resul t Performing Organization Address City/State/[facility] Co de Phone Number [facility] [address] [place] [address] documented in this encounter Visit Diagnoses Diagnosis Hyperlipidemia Other and unspecified hyperlipidemia HTN (hypertension), benign Essential hypertension, benign Alcohol abuse Alcohol abuse, unspecified Mixed hyperlipidemia documented in this encounter Additional [...] documented as of this encounter Care Teams Quality Assurance Lead Relationship Specialty Start Date End Date Desirae Wells MD PCP - General 05/26/05 03/12/17 Ashley Kim NP PCP - General Internal Medicine 03/13/17 06/17/24 Rachel Chandra MD [address] [place] [address] PCP - General 06/18/24 documented as of this encounter
--- OUTSIDE RECORDS SUMMARY | 2024-07-10 18:54 | XMS_ITS | Encounter Summary ---
Author Organization [facility] Address [address] [place] [address] Care Team Providers Care Community Placement Worker Name Role Phone Ashley Kim NP Primary Care Provider [phone] Rachel Chandra MD Primary Care Provider [phone] Reason for Visit * Reason Onset Date Comments Refill Request 07/25/2022 Encounter Details Date Type Department Care Team (Late st Contact Info) Description 07/25/2022 Refill [facility] [address] [place] [phone] Ashley Kim NP [address] [place] [address] Refill Request Social History Tobacco Use Types Packs/Day Years Used Date Smoking Tobacco: Never Smokeless Tobacco: Never Alcohol Use Standard Drinks/Week Comments Yes 0 (1 standard drink = 0.6 oz pur e alcohol) 4 drink per day PHQ-2 Answer Date Recorded PHQ-2 Score 0 10/17/2021 Sex and Gender Information Value Date Recorded Sex Assigned at Male 08/28/2022 9:04 AM EDT Legal Sex Male 6:16 PM EDT Gender Identity Male 08/28/2022 9:04 AM EDT Sexual Orientation Not on file 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 Concerns for Provider Review: Patient is due for an appointment in the next 6 months. Last appointment in prescriber Dept: 11/21/2021 Next appointment in prescriber Dept: Visit date not found Prepared 6 month supply: 90 day quantity with 1 refill. N/A Notified patient via letter. No provider action required. TAILOR'S AIDE / [employer] data below: Next refill due: 07/29/22 Provider: If unable to view snippet at legible size, please enlarge the progress notes section's width to your liking in order to view the attached snippet appropriately. Provider, please review details below to determine if the refill pattern is acceptable. If a pill count or other monitoring is indicated, please have your care team reach out to the patient. Pharmacy Confirmed? The most recent pharmacy on file was used. When is the medication needed? within 48 hours, will send routine message Past and Future Appointments in Auth Provider Departments: Recent Visits Date Type Provider Dept 01/17/22 Appointment Ashley Kim NP [facility] 11/21/21 Office Visit Ashley Kim NP [facility] 10/17/21 CPE - Comprehensive Physical Exam Ashley Kim NP [facility] 05/24/21 Office Visit Ashley Kim NP [facility] 10/25/20 Office Visit Angelique Blackman, GRAPHIC DESIGN SPECIALIST [facility] [employer] Showing recent visits within past 720 days [...] (two) times a day ifneeded for anxiety Not to drive after taking medication not to combine with alcohol, 60 tablets, 0 Refills TAILOR'S AIDE: TAILOR'S AIDE website checked this encounter? Yes Fill Guidance: PRN Medications: Prescription should be prepared as previously filled (No Changes). Visit Needs: Patient has been seen in last 6-9 Months but does not have an appointment scheduled in the next 6 Months. Verify future appointments and send standard communication to the patient to schedule an appointment. Lab Needs: None Pended medication order(s) and sent to provider. [...] agoraphobia documented in this encounter Care Teams Community Placement Worker Relationship Specialty Start Date End Date Ashley Kim NP PCP - General Internal Medicine 03/13/17 06/17/24 Rachel Chandra MD [address] [place] [id number] PCP - General 06/18/24 documented as of this encounter
[2024-07-10 20:48] VITALS: BP 132/86; PULSE 88; RESP 18; TEMP 36.6; O2SAT 96
== END 2024-07-10 20:49 | disposition home or self-care (01) ==
PROVIDERS: Emergency Provider Emergency Medicine
DX: F10.120 Alcohol abuse with intoxication, uncomplicated (principal); Y90.9 Presence of alcohol in blood, level not specified; S00.83XA Contusion of other part of head, initial encounter; X58.XXXA Exposure to other specified factors, initial encounter; Y93.9 Activity, unspecified; Y92.9 Unspecified place or not applicable; Y99.9 Unspecified external cause status
CPT/HCPCS: 70450; 72125; 99284

== ENCOUNTER → 2024-07-10 17:29 | Outpatient (BNV) | payer SELFPAY | PROVIDERS: Emergency Provider Emergency Medicine; Visit Provider Radiology Diagnostic Radiology | DX: S00.83XA Contusion of other part of head, initial encounter (principal) | CPT/HCPCS: 70450; 72125 ==